=== PATIENT | male | born 1940 | race Caucasian/White ===

== ENCOUNTER 2016-03-28 05:49 | Day surgery (SDC) | payer MEDICARE ==
[2016-03-21 18:36] VITALS: BMI 35.9
[2016-03-28] MEDS ORDERED: SODIUM CHLORIDE 0.9% 1,000 ML IV SCH ×2 (05:57→07:30)
[2016-03-28 06:31] LABS: Basophils % (A) 1 %; CH 31.6; CHCM 34.8; Eosinophils # (A) 0.4 k/uL (0-0.7); Eosinophils % (A) 8 %; HCT 39.1 % (39.0-53.0); HDW 3.04; HGB 13.3 gm/dL (13.0-17.5); Luc # (Auto) 0.13; Luc % (Auto) 2; Lymphocytes % (A) 19 %; MCHC 33.9 g/dL (31.0-37.0); MCV 91.4 fL (80.0-100.0); Mean Platelet Volume 7.1; Monocytes # (A) 0.4 k/uL (0-1.0); Monocytes % (A) 8 %; Neutrophils # (A) 3.3 k/uL (1.3-7.7); Neutrophils % (A) 62 %; RBC 4.28 m/uL (4.30-5.90); RDW 13.3 % (11.5-15.5); WBC 5.3 k/uL (3.8-10.6)
[2016-03-28 06:43] LABS: Anion Gap 10 mmol/L; Blood Urea Nitrogen 22 mg/dL (9-20); Carbon Dioxide 30 mmol/L (22-30); Chloride 102 mmol/L (98-107); Glucose 98 mg/dL (74-99); Non-African American GFR(MDRD) >60 (>60 ml/min/1.73 sqM); Potassium 4.2 mmol/L (3.5-5.1); Sodium 142 mmol/L (137-145)
[2016-03-28] MEDS ORDERED: fentaNYL (PF) 50 MCG/ML 2 ML AMP ONE (06:54)
[2016-03-28] MEDS ORDERED: PROPOFOL 10 MG/ML 20 ML VIAL IV ONE (06:54)
[2016-03-28] MEDS ORDERED: LIDOCAINE 1% INJ 10MG/ML (20 ML MDV) ONE (06:54)
[2016-03-28] MEDS ORDERED: BENZOCAINE SPRAY 100 APPLIC/CAN MUCOUS MEM ONE ×2 (07:09→07:11)
[2016-03-28 07:41] VITALS: TEMP 97.8
[2016-03-28 08:56] VITALS: BP 153/83; PULSE 66; RESP 18
[2016-03-28] MEDS ORDERED: amLODIPine 5 MG TAB PO SCH (09:00)
[2016-03-28] MEDS ORDERED: APIXABAN 5 MG TAB PO SCH (09:00)
[2016-03-28] MEDS ORDERED: LISINOPRIL 5 MG TAB PO SCH (09:00)
--- NOTE | 2016-03-28 10:05 | ECHOT ---
DATE OF SERVICE: INDICATION: Evaluation of left atrial appendage. PROCEDURE: After explaining the procedure to patient as well as risks and complications, his blood pressure, heart rate, O2 saturation were monitored. The throat was sprayed with Cetacaine. He received sedation per anesthesia department. The probe was introduced into the esophagus without difficulty. Images were obtained. Following that, the probe was removed. There was no complication. FINDINGS: Left atrial size is dilated. Right atrial size is dilated. Left atrial appendage revealed no evidence of thrombus. There was evidence of spontaneous contrast. The aortic valve revealed fibrocalcific change of the aortic cusp with preserved opening. Thickening of the mitral valve leaflet was noted. The left ventricular size and systolic function normal. Tricuspid valve is normal. Descending thoracic aorta revealed no evidence of significant atherosclerosis. No shunting across the interatrial septum was noted with contrast bubble study. No pericardial effusion was noted. Doppler pulse wave and color obtained revealed mild to moderate aortic with mild mitral and tricuspid regurgitation. There was no shunting by color Doppler study. CONCLUSION: 1. Biatrial enlargement with normal appearing left atrial appendage. 2. Normal left ventricular size and systolic function. 3. Aortic sclerosis with no evidence of stenosis and of mild to moderate aortic regurgitation. 4. Mild mitral and tricuspid regurgitation. 5. No shunting across the interatrial septum. MTDD
[2016-03-28] MEDS ORDERED: THIAMINE 100 MG TAB PO SCH (12:00)
--- NOTE | 2016-03-28 18:10 | CE ---
DATE OF SERVICE: CARDIOVERSION INDICATION: Atrial fibrillation. PROCEDURE: After explaining the procedure to the patient as well as risks and complications, after performing transesophageal echocardiogram and obtaining a sedated state, a synchronized biphasic cardioversion using 200 joules was unsuccessful restoring sinus mechanism. Subsequent cardioversion using 300 joules was successful restoring normal sinus rhythm. There was no immediate complication.
[2016-03-28] MEDS ORDERED: ATORVASTATIN 40 MG TAB PO SCH (21:00)
[2016-03-29] MEDS ORDERED: PANTOPRAZOLE 40 MG TABLET PO SCH (07:30)
== END 2016-03-28 09:06 | disposition home or self-care (01) ==
LOC: CATHCVL 05:49
PROVIDERS: ATTEND Internal Medicine Interventional Cardiology
DX: Z79.02 Long term (current) use of antithrombotics/antiplatelets (principal); Z79.899 Other long term (current) drug therapy; I70.0 Atherosclerosis of aorta; I10 Essential (primary) hypertension; E78.5 Hyperlipidemia, unspecified; Z86.73 Personal history of transient ischemic attack (TIA), and cerebral infarction without residual deficits; K21.9 Gastro-esophageal reflux disease without esophagitis
CPT/HCPCS: 93312; 93320; 93005; 93325; 92960; 80048; 85025; J2001; J3010; J2704; 99152; 99153

== ENCOUNTER 2017-05-15 12:32 | Inpatient (IN) | payer MEDICARE ==
[2017-05-15] MEDS ORDERED: SODIUM CHLORIDE 0.9% 1,000 ML IV STA (14:44)
[2017-05-15] MEDS ORDERED: VANCOMYCIN IV PER PHARMACY 1 EACH MISC MISCELLANE PRN (14:44)
[2017-05-15] MEDS ORDERED: AMPICILLIN-SULBACTAM 3 GM in SODIUM CHLORIDE 0.9% 100 ML IVPB STA (14:44)
[2017-05-15] MEDS ORDERED: VANCOMYCIN 1,750 MG in SODIUM CHLORIDE 0.9% 250 ML IVPB STA (14:46)
--- NOTE | 2017-05-15 14:50 | ED ---
General Adult HPI - General Chief complaint: Wound/Laceration Stated complaint: Swollen Leg & Foot Time Seen by Provider: 05/15/17 14:31 Source: patient, RN notes reviewed Mode of arrival: ambulatory Limitations: no limitations - History of Present Illness Initial comments: 77-year-old male presents to the emergency department with a chief complaint of left lower extremity infection. Patient states this started about 10 days ago. He was unable to get to a doctor until today. He states that his left lower extremity is red and swollen and warm to touch. He states he did stub his left toe before this started. He denies any fever or chills but states the leg has felt warm. He denies any history of blood clots. He went to see his doctor today and he was referred here for IV antibiotics. He has been able to ambulate. There is been no falls. Patient denies any recent fever, chills, shortness of breath, chest pain, back pain, abdominal pain, nausea vomiting, numbness or tingling, dysuria or hematuria, constipation or diarrhea, headaches or visual changes, or any other current symptoms. - Related Data Home Medications Medication Instructions Recorded Confirmed No Known Home Medications [No 05/15/17 05/15/17 Known Home Medications] Allergies Allergy/AdvReac Type Severity Reaction Status Date / Time No Known Allergies Allergy Verified 05/15/17 14:49 Review of Systems ROS Statement: Those systems with pertinent positive or pertinent negative responses have been documented in the HPI. ROS Other: All systems not noted in ROS Statement are negative. Past Medical History Past Medical History: CVA/TIA, GI Bleed, Hyperlipidemia, Hypertension, Liver Disease, Osteoarthritis (OA) Additional Past Medical History / Comment(s): "slight stroke 12/30/15, resolved. 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 states had "yellow jaundice" as a young teen; L foot burn about 2 yrs ago, healed w/ large bulge in arch, affects balance at times. Pt states does not go to the doctors "much." GI BLEEDING 12/2015, OFF ASPIRIN SINCE. IRREG HEART RHYTHM, PER PATIENT, SHORT OF BREATH OCC. History of Any Multi-Drug Resistant Organisms: None Reported Past Surgical History: Appendectomy, Orthopedic Surgery Additional Past Surgical History / Comment(s): R ankle fluid removal, L elbow nerve problem with surgery. YAHIR 02/02/16. Past Anesthesia/Blood Transfusion Reactions: No Reported Reaction Additional Past Anesthesia/Blood Transfusion Reaction / Comment(s): no hx blood transfusion Past Psychological History: No Psychological Hx Reported Smoking Status: Never smoker Past Alcohol Use History: Occasional Past Drug Use History: None Reported - Past Family History Father Family Medical History: Myocardial Infarction (SD) Additional Family Medical History / Comment(s): Father had a SD at the age of 63 and from it. Mother Family Medical History: No Reported History Additional Family Medical History / Comment(s): Mother lived to be 82 yrs. old. General Exam - General Exam Comments Initial Comments: General: The patient is awake and alert, in no distress, and does not appear acutely ill. Neck: The neck is supple, there is no tenderness . Cardiovascular: There is a regular rate and rhythm. No murmur, rub or gallop is appreciated. Respiratory: Lungs are clear to auscultation, respirations are non-labored, breath sounds are equal. No wheezes, stridor, rales, or rhonchi. Musculoskeletal: Sensation intact with 2+ pulses of left lower extremity. Full range of motion of left hip left knee and left foot. He does appear to have a swelling with circumferential erythema surrounding the left lower extremity and swelling extending into the foot with a wound noted to the left middle toe. Warm to touch. Erythema stops below left knee Neurological: CN II-XII intact, There are no obvious motor or sensory deficits. Coordination appears grossly intact. Speech is normal. Skin: Skin is warm and dry and no rashes or lesions are noted. Psychiatric: Normal mood and affect. Limitations: no limitations Course Vital Signs 05/15/17 05/15/17 13:39 16:31 Temperature 97.8 F 97.9 F Pulse Rate 90 88 Respiratory 20 16 Rate Blood Pressure 191/88 165/71 O2 Sat by Pulse 99 96 Oximetry Medical Decision Making - Medical Decision Making 77-year-old male presents for left lower extremity redness and swelling. This time patient does appear to have lower extremity cellulitis. This time antibiotics have been started. Patient will be admitted for continued care. Dr. Rabago spoke to Pillo RODRÍGUEZ who does agree to the admission. - Lab Data Result diagrams: 05/15/17 14:59 05/15/17 14:59 Lab Results 05/15/17 05/15/17 05/15/17 Range/Units 14:59 14:59 14:59 WBC 6.7 (3.8-10.6) k/uL RBC 4.48 (4.30-5.90) m/uL Hgb 13.1 (13.0-17.5) gm/dL Hct 40.0 (39.0-53.0) % MCV 89.2 (80.0-100.0) fL MCH 29.3 (25.0-35.0) pg MCHC 32.9 (31.0-37.0) g/dL RDW 13.1 (11.5-15.5) % Plt Count 230 (150-450) k/uL Neutrophils % 67 % Lymphocytes % 19 % Monocytes % 8 % Eosinophils % 4 % Basophils % 1 % Neutrophils # 4.4 (1.3-7.7) k/uL Lymphocytes # 1.2 (1.0-4.8) k/uL Monocytes # 0.5 (0-1.0) k/uL Eosinophils # 0.3 (0-0.7) k/uL Basophils # 0.1 (0-0.2) k/uL PT 10.6 (9.0-12.0) sec INR 1.1 (<1.2) APTT 23.8 (22.0-30.0) sec Sodium 137 (137-145) mmol/L Potassium 4.5 (3.5-5.1) mmol/L Chloride 99 (98-107) mmol/L Carbon Dioxide 26 (22-30) mmol/L Anion Gap 12 mmol/L BUN 21 H (9-20) mg/dL Creatinine 0.89 (0.66-1.25) mg/dL Est GFR (CKD-EPI)AfAm >90 (>60 ml/min/1.73 sqM) Est GFR (CKD-EPI)NonAf 82 (>60 ml/min/1.73 sqM) Glucose 87 (74-99) mg/dL Calcium 9.3 (8.4-10.2) mg/dL Total Bilirubin 0.4 (0.2-1.3) mg/dL AST 17 (17-59) U/L ALT 27 (21-72) U/L Alkaline Phosphatase 93 (38-126) U/L Total Protein 6.8 (6.3-8.2) g/dL Albumin 3.8 (3.5-5.0) g/dL - Radiology Data Radiology results: report reviewed, image reviewed Disposition Clinical Impression: Left leg cellulitis Disposition: ADMITTED IP TO THIS [facility] Condition: Stable Decision Date: 05/15/17 Decision Time: 16:14
[2017-05-15 15:14] LABS: Basophils # (A) 0.1 k/uL (0-0.2); Basophils % (A) 1 %; Eosinophils # (A) 0.3 k/uL (0-0.7); Eosinophils % (A) 4 %; HGB 13.1 gm/dL (13.0-17.5); Lymphocytes # (A) 1.2 k/uL (1.0-4.8); Lymphocytes % (A) 19 %; MCH 29.3 pg (25.0-35.0); MCHC 32.9 g/dL (31.0-37.0); MCV 89.2 fL (80.0-100.0); Mean Platelet Volume 6.8; Monocytes # (A) 0.5 k/uL (0-1.0); Monocytes % (A) 8 %; Neutrophils # (A) 4.4 k/uL (1.3-7.7); Neutrophils % (A) 67 %; Platelet Count 230 k/uL (150-450); RBC 4.48 m/uL (4.30-5.90); RDW 13.1 % (11.5-15.5); WBC 6.7 k/uL (3.8-10.6)
[2017-05-15 15:25] LABS: ALT 27 U/L (21-72); AST 17 U/L (17-59); Albumin 3.8 g/dL (3.5-5.0); Alkaline Phosphatase 93 U/L (38-126); Anion Gap 12 mmol/L; Blood Urea Nitrogen 21 mg/dL (9-20); Calcium 9.3 mg/dL (8.4-10.2); Carbon Dioxide 26 mmol/L (22-30); Chloride 99 mmol/L (98-107); Glucose 87 mg/dL (74-99); INR 1.1 (<1.2); Partial Thromboplastin Time 23.8 sec (22.0-30.0); Potassium 4.5 mmol/L (3.5-5.1); Prothrombin Time 10.6 sec (9.0-12.0); Sodium 137 mmol/L (137-145); Total Bilirubin 0.4 mg/dL (0.2-1.3); Total Protein 6.8 g/dL (6.3-8.2)
--- NOTE | 2017-05-15 15:31 | XR ---
EXAMINATION TYPE: XR tibia fibula LT DATE OF EXAM: 05/15/2017 COMPARISON: NONE HISTORY: Pain TECHNIQUE: Two views are submitted. FINDINGS: The osseous structures are intact. The joint spaces are preserved. Diffuse soft tissue edema. There is arthropathy of the knee joint. Arthropathy of the ankle joint. There is marked deformity of the t arsal bones likely on a chronic basis. Large plantar calcaneal spurs seen and there is a pes planus d eformity. IMPRESSION: 1. No acute osseous abnormality. See above. 2. Soft tissue edema.
--- NOTE | 2017-05-15 16:08 | US ---
EXAMINATION TYPE: US venous doppler duplex LE LT DATE OF EXAM: 05/15/2017 3:54 PM COMPARISON: NONE CLINICAL HISTORY: Pain. lt leg pain and swelling SIDE PERFORMED: Left TECHNIQUE: The lower extremity deep venous system is examined utilizing real time linear array sonog bri with graded compression, doppler sonography and color-flow sonography. VESSELS IMAGED: External Iliac Vein (EIV) Common Femoral Vein Deep Femoral Vein Greater Saphenous Vein * Femoral Vein Popliteal Vein Small Saphenous Vein * Proximal Calf Veins (* superficial vessels) Grayscale, color doppler, spectral doppler imaging performed of the deep veins of the lower extremity . There is normal flow, compressibility, vascular waveforms. Left Leg: Negative for DVT IMPRESSION: Left Leg: Negative for DVT
[2017-05-15] MEDS ORDERED: NALOXONE 0.4 MG/ML 1 ML VIAL IV PRN (16:17)
[2017-05-15] MEDS ORDERED: ACETAMINOPHEN TAB 325 MG TAB PO PRN (16:17)
[2017-05-15] MEDS ORDERED: ONDANSETRON 4 MG/2 ML VIAL IVP PRN (16:17)
--- NOTE | 2017-05-15 16:44 | XR ---
EXAMINATION TYPE: XR foot complete LT DATE OF EXAM: 05/15/2017 COMPARISON: NONE HISTORY: Pain TECHNIQUE: 3 views FINDINGS: there is extensive spurring and sclerosis at the tarsometatarsal joints. I see no acute fracture nor dislocation. There is mild subluxation at the third MP joint. There is spurring at the first MP joint . There is pes planus deformity. 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 No evidence of osteomyelitis. No acute bony abnormality. Mild plantar calcanea l spurring.
[2017-05-15] MEDS: SODIUM CHLORIDE 0.9% 1,000 ML IV SCH (17:19)
[2017-05-16] MEDS: AMPICILLIN-SULBACTAM 3 GM in SODIUM CHLORIDE 0.9% 100 ML IVPB SCH ×4 (00:10→17:23)
[2017-05-16] MEDS: VANCOMYCIN 1,750 MG in SODIUM CHLORIDE 0.9% 250 ML IVPB SCH ×2 (05:01→21:52)
[2017-05-16] MEDS: SODIUM CHLORIDE 0.9% 1,000 ML IV SCH ×3 (05:02→21:58)
[2017-05-16 09:06] LABS: Basophils % (A) 1 %; Eosinophils # (A) 0.3 k/uL (0-0.7); Eosinophils % (A) 6 %; HCT 36.3 % (39.0-53.0); HGB 12.6 gm/dL (13.0-17.5); Lymphocytes # (A) 0.5 k/uL (1.0-4.8); Lymphocytes % (A) 11 %; MCH 30.6 pg (25.0-35.0); MCHC 34.7 g/dL (31.0-37.0); MCV 88.1 fL (80.0-100.0); Mean Platelet Volume 7.2; Monocytes # (A) 0.3 k/uL (0-1.0); Monocytes % (A) 5 %; Neutrophils # (A) 3.5 k/uL (1.3-7.7); Neutrophils % (A) 76 %; Platelet Count 214 k/uL (150-450); RBC 4.12 m/uL (4.30-5.90); RDW 12.9 % (11.5-15.5); WBC 4.6 k/uL (3.8-10.6)
[2017-05-16 09:37] LABS: Albumin 3.5 g/dL (3.5-5.0); Calcium 8.9 mg/dL (8.4-10.2); Potassium 4.1 mmol/L (3.5-5.1); Total Bilirubin 0.5 mg/dL (0.2-1.3); Total Protein 6.2 g/dL (6.3-8.2)
--- NOTE | 2017-05-16 12:17 | P.HPIM ---
History of Present Illness Patient is a pleasant 77-year-old gentleman came in with the cellulitis of the bilateral for legs mostly in the left leg patient was sent in here by his foot doctor who was treating for cellulitis as an outpatient without any improvement and the patient had put deformity in the left foot after an injury on his tractor years ago and patient does have pes planus and multiple ulcerations in the left leg 1 in the mid collado area , second one on the second toe which may have osteomyelitis and the third one on the medial aspect of the calcaneus on the left side along with another ulcer on the right midshin area. Patient does have increasing redness which appears to have improved since yesterday patient was given Zosyn and was also started on vancomycin doesn't take any medications at home patient is not a smoker not a diabetic patient does having Kreiser the temperature redness in the left leg redness in the right leg but no local is of temperature no tenderness in both legs. Patient denied any fevers chills at home. There is no purulence or polyps coming out of any of these wounds because of which I'm unable to get any wound cultures. Blood cultures were obtained infectious disease will be consulted along with the radiosonde specialist Review of Systems REVIEW OF SYSTEMS: CONSTITUTIONAL: No fever, no malaise, no fatigue. HEENT: No recent visual problems or hearing problems. Denied any sore throat. CARDIOVASCULAR: No chest pain, orthopnea, PND, no palpitations, no syncope. PULMONARY: No shortness of breath, no cough, no hemoptysis. GASTROINTESTINAL: No diarrhea, no nausea, no vomiting, no abdominal pain. Normoactive bowel sounds. NEUROLOGICAL: No headaches, no weakness, no numbness. HEMATOLOGICAL: Denies any bleeding or petechiae. GENITOURINARY: Denies any burning micturition, frequency, or urgency. MUSCULOSKELETAL/RHEUMATOLOGICAL: Denies any joint pain, swelling, or any muscle pain. ENDOCRINE: Denies any polyuria or polydipsia. The rest of the 14-point review of systems is negative. Past Medical History Past Medical History: CVA/TIA, GI Bleed, Hyperlipidemia, Hypertension, Liver Disease, Osteoarthritis (OA) Additional Past Medical History / Comment(s): "slight stroke" 12/30/15, resolved. states had "yellow jaundice, took a pill for hepatitis" as a young teen; L foot burn 4 years ago, healed w/ large bulge in arch, affects balance at times. GI BLEEDING 12/2015,. IRREG HEART RHYTHM, PER PATIENT. History of Any Multi-Drug Resistant Organisms: None Reported Past Surgical History: Appendectomy, Orthopedic Surgery Additional Past Surgical History / Comment(s): R ankle fluid removal, L elbow nerve problem with surgery. YAHIR 02/02/16. Past Anesthesia/Blood Transfusion Reactions: No Reported Reaction Additional Past Anesthesia/Blood Transfusion Reaction / Comment(s): no hx blood transfusion Past Psychological History: No Psychological Hx Reported Smoking Status: Never smoker Past Alcohol Use History: Occasional Additional Past Alcohol Use History / Comment(s): Patient states he is a social drinker, no history of ETOH withdrawl Past Drug Use History: None Reported - Past Family History Father Family Medical History: Myocardial Infarction (SD) Additional Family Medical History / Comment(s): Father had a SD at the age of 63 and from it. Mother Family Medical History: No Reported History Additional Family Medical History / Comment(s): Mother lived to be 82 yrs. old. Medications and Allergies Home Medications Medication Instructions Recorded Confirmed Type No Known Home Medications [No 05/15/17 05/15/17 History Known Home Medications] Allergies Allergy/AdvReac Type Severity Reaction Status Date / Time No Known Allergies Allergy Verified 05/15/17 14:49 Physical Exam Vitals: Vital Signs Temp Pulse Pulse Resp BP BP Pulse Ox 05/16/17 07:00 97.6 F 94 16 173/86 95 05/16/17 01:42 98.4 F 85 18 175/84 95 05/15/17 23:00 99.1 F 90 18 183/93 95 05/15/17 17:51 97.2 F L 90 18 152/82 96 05/15/17 16:31 97.9 F 88 16 165/71 96 05/15/17 13:39 97.8 F 90 20 191/88 99 Intake and Output 05/15/17 05/16/17 05/16/17 22:59 06:59 14:59 Other: Voiding Method Toilet Toilet Urinal # Voids 1 2 Weight 118 kg PHYSICAL EXAMINATION: GENERAL: The patient is alert and oriented x3, not in any acute distress. Well developed, well nourished. HEENT: Pupils are round and equally reacting to light. EOMI. No scleral icterus. No conjunctival pallor. Normocephalic, atraumatic. No pharyngeal erythema. No thyromegaly. CARDIOVASCULAR: S1 and S2 present. No murmurs, rubs, or gallops. PULMONARY: Chest is clear to auscultation, no wheezing or crackles. ABDOMEN: Soft, nontender, nondistended, normoactive bowel sounds. No palpable organomegaly. MUSCULOSKELETAL: No joint swelling or deformity. EXTREMITIES: No cyanosis, clubbing, or pedal edema. Left leg 3 ulcers as described above all of them are stage III the one on the second toe may have [id number] because of which are pending a bone scan patient does have with redness with local is of temperature involving most of the left leg involving the foot few centimeters below the knee in a circumferential with local is of temperature. Right leg has a mention ulceration probably stage II does have redness without any local is of temperature. Left leg is swollen more than right leg NEUROLOGICAL: Gross neurological examination did not reveal any focal deficits. SKIN: No rashes. Results CBC & Chem 7: 05/16/17 08:45 05/16/17 08:45 Labs: Abnormal Lab Results - Last 24 Hours (Table) 05/15/17 05/16/17 05/16/17 Range/Units 14:59 08:45 08:45 RBC 4.12 L (4.30-5.90) m/uL Hgb 12.6 L (13.0-17.5) gm/dL Hct 36.3 L (39.0-53.0) % Lymphocytes # 0.5 L (1.0-4.8) k/uL BUN 21 H (9-20) mg/dL Glucose 158 H (74-99) mg/dL Total Protein 6.2 L (6.3-8.2) g/dL Microbiology - Last 24 Hours (Table) 05/15/17 16:20 Gram Stain - Preliminary Foot - Left Wound Culture - Preliminary Thrombosis Risk Factor Assmnt - Choose All That Apply Any of the Below Risk Factors Present?: Yes Each Factor Represents 1 point: Swollen legs (current) Each Risk Factor Represents 3 Points: Age 75 years or older, Family history of DVT/PE Thrombosis Risk Factor Assessment Total Risk Factor Score: 7 Thrombosis Risk Factor Assessment Level: High Risk Assessment and Plan Plan: -Cellulitis of bilateral legs: Patient will be started on vancomycin and Unasyn will be continued and blood cultures were obtain -Pes planus significant left foot or deformity because of the severe osteoarthritis from injury and pes planus -Swelling of the left leg ruled out DVT -Multiple ulcerations with for which patient will need wound care and also rule out osteomyelitis infectious disease and radiosonde specialist will be consulted
--- NOTE | 2017-05-16 16:45 | NM ---
EXAMINATION TYPE: NM bone 3 phase DATE OF EXAM: 05/16/2017 COMPARISON: NONE HISTORY: Triple phase bone scintigraphy was performed following the injection of24.0 mCi Tc 99m MDP. Immediat e images and 3 hours post injection images acquired. FINDINGS: The flow study shows hyperemia of the entire left foot compared to the right. The delayed images show significant increased uptake in the left midfoot in the area of significant osteoarthritis and scler osis at the tarsometatarsal joints of the left foot. There is delayed focal increased uptake at the end of the second toe of the left foot. There is mild increased uptake in the right midfoot at the first tarsometatarsal joint. IMPRESSION: Hyperemia of the left foot with delayed focal increased uptake at the end of the left second toe that could relate to osteomyelitis. Reactive changes due to fracture is in the differential diagnosis. Shaji singh I do not see an obvious fracture on the left foot x-ray of 05/08/1717. Significant increased uptake at the left midfoot related to the evident neuropathic arthropathy at th e tarsometatarsal joints.
--- NOTE | 2017-05-16 23:17 | CONS ---
CONSULTATION DATE OF CONSULTATION: 05/16/2017 REASON FOR CONSULTATION: Left leg cellulitis and left second toe osteomyelitis. HISTORY OF PRESENT ILLNESS: The patient is a 77-year-old male presenting to the ER at [facility] yesterday afternoon with the chief complaint of left leg pain, swelling and redness. His symptom had been going on for about 10 days prior to presentation to hospital. The patient did have a wound on the tip of his left second toe from a trauma, stubbing it more than 2 weeks ago. The patient has very minimal drainage from the tip of the second toe, with more swelling of the second toe with subsequently redness spreading to the left leg. Pain is described in the left leg as more of a dull aching pain for about 10 days, about 2 to 3 out of 10, and no radiation. The patient did have some chills but denies any high-grade fever. With these symptom, the patient was evaluated by the ER physician. The patient did have a lower extremity Doppler that was negative for DVT. X- ray was negative for any bony changes. The patient has been diagnosed with possible cellulitis and was started on vancomycin and Unasyn. Infectious Disease was consulted for further recommendation regarding antibiotic therapy. The patient also had x -rays of the left foot that did not show any significant changes. However, subsequently a bone scan that was ordered by the admitting services did show possible osteomyelitis of the left second toe. REVIEW OF SYSTEMS: CONSTITUTIONAL: Positive for weakness and some chills but denies any high-grade fever. EYES: No complaint. ENT: No complaint. RESPIRATORY: No complaint. CARDIOVASCULAR: No complaint. GENITOURINARY: No complaint. GASTROINTESTINAL: No complaint. MUSCULOSKELETAL: As per HPI. INTEGUMENTARY: As per HPI. PSYCHOLOGICAL: No complaint. ENDOCRINE: No complaint. NEUROLOGICAL: No complaint. PAST MEDICAL HISTORY: 1. Hypertension. 2. Hyperlipidemia. 3. CVA, TIA. 4. History of GI bleed. 5. Osteoarthritis. PAST SURGICAL HISTORY: 1. Appendectomy. 2. Right ankle surgery. 3. Left elbow surgery. 4. YAHIR. SOCIAL HISTORY: No history of smoking. Social drinker. No drug use. FAMILY HISTORY: Father with history of [place]. Mother lived to be 82 with no medical problems. ALLERGIES: NO KNOWN DRUG ALLERGIES. CURRENT MEDICATIONS: 1. Tylenol. 2. Unasyn. 3. Narcan. 4. Zofran. 5. Vancomycin. PHYSICAL EXAMINATION: His blood pressure is 127/95 with a pulse of 86, temperature 97.6. He is 96% on room air. General description is an elderly male lying in bed in no distress. No tachypnea or accessory muscle of respiration use. HEENT examination shows no pallor or scleral icterus. Oral mucosa membrane is dry. NECK: Trachea is central. No thyromegaly. LUNGS: Unlabored breathing. Clear to auscultation anteriorly. HEART: S1, S2. Regular rate and rhythm. ABDOMEN: Soft. No tenderness. No guarding or rigidity. EXTREMITIES: Some chronic changes to the bilateral lower leg areas. However, the patient does have a wound on his left second toe at the tip with some purulent drainage. The area was cleaned and cultures were obtained. Minimal swelling of the left foot and redness. Neurologically the patient is awake, alert, oriented x3. Mood and affect normal. LABS: Hemoglobin is 12.6, white count 4.6 with a BUN of 18, creatinine 0.97. Electrolytes have been normal. Liver enzymes are normal. Blood culture obtained; currently pending. DIAGNOSTIC IMPRESSION AND PLAN: Patient admitted to hospital with left second toe wound with likely osteomyelitis with secondary cellulitis of the left foot, likely from a Gram-positive skin mars such as streptococcus in a patient who has been on and off antibiotic therapy; less likely MRSA or a Gram-negative infection, as the patient is not diabetic. PLAN: 1. Wound culture has been obtained. That should guide antibiotic therapy. In view of the underlying osteomyelitis, he would likely need to be on IV antibiotic on discharge, for which he will need a PICC line. 2. Will obtain a baseline sedimentation rate. 3. Will keep the patient on vancomycin, Pharmacy to dose; target of 15; along with the Unasyn while waiting for the culture to finalize. 4. Will follow up on the clinical condition and culture to further adjust medication if needed. Thank you for this consultation. Will follow this patient along with you. MMODL / IJN: [id number] / MTDD
[2017-05-17] MEDS: AMPICILLIN-SULBACTAM 3 GM in SODIUM CHLORIDE 0.9% 100 ML IVPB SCH ×5 (00:01→18:20)
--- NOTE | 2017-05-17 08:38 | P.PN ---
Subjective Progress Note Date: 05/17/17 Principal diagnosis: Neuropathic ulceration left second toe with ascending cellulitis History of Present Illness Patient is a pleasant 77-year-old gentleman came in with the cellulitis of the bilateral for legs mostly in the left leg patient was sent in here by his foot doctor who was treating for cellulitis as an outpatient without any improvemen patient is being seen in consultation for deformity and treatment of ulceration of the left lower extremity. Patient apparently injured his toe proximally 3 weeks ago. He made an appointment to see the foot doctor however could not be seen due to scheduling issues. He did present this week at which time the physician instructed the patient to present to the hospital for treatment of infection. Treatment was rendered on this day. He was admitted Sunday afternoon for cellulitis of the left lower extremity and has been treated with IV antibiotics. Patient is a poor historian as far as how the foot was injured due to his neuropathy. She does not know how long the neuropathy has been present. Does have a special shoe which he states he does well or on the left foot with some modifications. Patient is seen at bedside today with no apparent distress. Objective - Vital Signs Vital signs: Vital Signs Temp 98.5 F 05/17/17 07:00 Pulse 91 05/17/17 07:00 Resp 16 05/17/17 07:00 BP 154/84 05/17/17 07:00 Pulse Ox 94 L 05/17/17 07:00 Intake & Output 05/16/17 05/17/17 05/17/17 18:59 06:59 18:59 Output Total 800 0 Balance -800 -2049 Weight 118 kg Output: Urine 800 0 Other: Voiding Method Toilet Toilet Urinal Urinal # Voids 4 1 - Exam The past medical history is reviewed and per chart. t Review of Systems REVIEW OF SYSTEMS: CONSTITUTIONAL: No fever, no malaise, no fatigue. HEENT: No recent visual problems or hearing problems. Denied any sore throat. CARDIOVASCULAR: No chest pain, orthopnea, PND, no palpitations, no syncope. PULMONARY: No shortness of breath, no cough, no hemoptysis. GASTROINTESTINAL: No diarrhea, no nausea, no vomiting, no abdominal pain. Normoactive bowel sounds. NEUROLOGICAL: No headaches, no weakness, no numbness. HEMATOLOGICAL: Denies any bleeding or petechiae. GENITOURINARY: Denies any burning micturition, frequency, or urgency. MUSCULOSKELETAL/RHEUMATOLOGICAL: Denies any joint pain, swelling, or any muscle pain. ENDOCRINE: Denies any polyuria or polydipsia. The rest of the 14-point review of systems is negative. Past Medical History Past Medical History: CVA/TIA, GI Bleed, Hyperlipidemia, Hypertension, Liver Disease, Osteoarthritis (OA) Additional Past Medical History / Comment(s): "slight stroke" 12/30/15, resolved. states had "yellow jaundice, took a pill for hepatitis" as a young teen; L foot burn 4 years ago, healed w/ large bulge in arch, affects balance at times. GI BLEEDING 12/2015,. IRREG HEART RHYTHM, PER PATIENT. History of Any Multi-Drug Resistant Organisms: None Reported Past Surgical History: Appendectomy, Orthopedic Surgery Additional Past Surgical History / Comment(s): R ankle fluid removal, L elbow nerve problem with surgery. YAHIR 02/02/16. Past Anesthesia/Blood Transfusion Reactions: No Reported Reaction Additional Past Anesthesia/Blood Transfusion Reaction / Comment(s): no hx blood transfusion Past Psychological History: No Psychological Hx Reported Smoking Status: Never smoker Past Alcohol Use History: Occasional Additional Past Alcohol Use History / Comment(s): Patient states he is a social drinker, no history of ETOH withdrawl Past Drug Use History: None Reported - Past Family History Father Family Medical History: Myocardial Infarction (VT) Additional Family Medical History / Comment(s): Father had a VT at the age of 63 and from it. Mother Family Medical History: No Reported History Additional Family Medical History / Comment(s): Mother lived to be 82 yrs. old. Medications and Allergies Home Medications Medication Instructions Recorded Confirmed Type No Known Home Medications [No 05/15/17 05/15/17 History Known Home Medications] Allergies Allergy/AdvReac Type Severity Reaction Status Date / Time No Known Allergies Allergy Verified 05/15/17 14:49 Physical Exam Vitals: Vital Signs Temp Pulse Pulse Resp BP BP Pulse Ox 05/16/17 07:00 97.6 F 94 16 173/86 95 05/16/17 01:42 98.4 F 85 18 175/84 95 05/15/17 23:00 99.1 F 90 18 183/93 95 05/15/17 17:51 97.2 F L 90 18 152/82 96 05/15/17 16:31 97.9 F 88 16 165/71 96 05/15/17 13:39 97.8 F 90 20 191/88 99 Intake and Output 05/15/17 05/16/17 05/16/17 22:59 06:59 14:59 Other: Voiding Method Toilet Toilet Urinal # Voids 1 2 Weight 118 kg PHYSICAL EXAMINATION: GENERAL: The patient is alert and oriented x3, not in any acute distress. Well developed, well nourished. HEENT: Pupils are round and equally reacting to light. EOMI. No scleral icterus. No conjunctival pallor. Normocephalic, atraumatic. No pharyngeal erythema. No thyromegaly. CARDIOVASCULAR: S1 and S2 present. No murmurs, rubs, or gallops. PULMONARY: Chest is clear to auscultation, no wheezing or crackles. ABDOMEN: Soft, nontender, nondistended, normoactive bowel sounds. No palpable organomegaly. MUSCULOSKELETAL: No joint swelling or deformity. EXTREMITIES: No cyanosis, clubbing, or pedal edema. Left leg 3 ulcers as described above all of them are stage III the one on the second toe may have [id number] because of which are pending a bone scan patient does have with redness with local is of temperature involving most of the left leg involving the foot few centimeters below the knee in a circumferential with local is of temperature. Right leg has a mention ulceration probably stage II does have redness without any local is of temperature. Left leg is swollen more than right leg NEUROLOGICAL: Gross neurological examination did not reveal any focal deficits. SKIN: No rashes. Results CBC & Chem 7: 05/16/17 08:45 05/16/17 08:45 Labs: Abnormal Lab Results - Last 24 Hours (Table) 05/15/17 05/16/17 05/16/17 Range/Units 14:59 08:45 08:45 RBC 4.12 L (4.30-5.90) m/uL Hgb 12.6 L (13.0-17.5) gm/dL Hct 36.3 L (39.0-53.0) % Lymphocytes # 0.5 L (1.0-4.8) k/uL BUN 21 H (9-20) mg/dL Glucose 158 H (74-99) mg/dL Total Protein 6.2 L (6.3-8.2) g/dL Microbiology - Last 24 Hours (Table) 05/15/17 16:20 Gram Stain - Preliminary Foot - Left Wound Culture - Preliminary - Cardiovascular Details: Pedal pulses are patent and symmetrical bilateral. Temperature texture tumor normal and symmetric bilateral there is no digital hair 10. Some plexus filling time is normal and symmetrical bilateral - Integumentary Integumentary Comment(s): There is a full-thickness ulceration on the distal aspect of the left second toe. Before debridement the wound measured approximately 1 cm x 1 cm with the depth on determined. After debridement the wound measured approximately 0.5 cm x 0.5 cm and penetrated deep down to the osseous tissues approximately 0.6 cm. There is undermining around the clock proximally 0.3 cm. There is localized erythema and edema of the left second toe to the metatarsophalangeal joint. No advertent purulence was noted. There is no odor no increased temperature of the digit. Patient has have several crusting lesions appears to be healing ulcerations of bilateral legs in the pretibial area centrally in the distal one third. There is also a hyperkeratotic pre-ulcerative lesion beneath the talar navicular joint of the left foot. - Neurologic Neurologic Comment(s): Patient has loss of epicritic and pallesthetic sensations of the left lower leg up to including the foot ankle joint and distal one third of the leg. Patient has loss of light touch as well as vibratory 2 point tactile in a stocking glove distribution of the left lower extremity to the lower leg. 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 There is a gastrocnemius equinus bilateral. There is hammertoes 234 and 5 bilateral. Any pedal joints show normal range of motion without pain or crepitus bilateral - Labs CBC & Chem 7: 05/16/17 08:45 05/16/17 08:45 Labs: Abnormal Lab Results - Last 24 Hours (Table) 05/16/17 05/16/17 Range/Units 08:45 08:45 RBC 4.12 L (4.30-5.90) m/uL Hgb 12.6 L (13.0-17.5) gm/dL Hct 36.3 L (39.0-53.0) % Lymphocytes # 0.5 L (1.0-4.8) k/uL Glucose 158 H (74-99) mg/dL Total Protein 6.2 L (6.3-8.2) g/dL Microbiology - Last 24 Hours (Table) 05/16/17 14:41 Gram Stain - Preliminary Toe - Left Second Wound Culture - Preliminary 05/15/17 16:20 Gram Stain - Preliminary Foot - Left Wound Culture - Preliminary Presumptive Staph aureus 05/15/17 14:59 Blood Culture - Preliminary Blood No Growth after 24 hours Assessment and Plan Assessment: 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 Plan: Today after review history and physical we discussed our findings with patient. We debrided the necrotic tissue about the area of the left second toe. Orders for wound care as well as repeat culture and sensitivity of this area. Patient will continue IV antibiotics and should respond favorably. After discharge patient may need surgical intervention of the left second digit to prevent recurrence. Thank you for this consult. Santiago CAVAZOS
[2017-05-17] MEDS: SODIUM CHLORIDE 0.9% 1,000 ML IV SCH ×2 (08:49→19:51)
[2017-05-17 09:41] LABS: HGB 12.4 gm/dL (13.0-17.5); MCH 30.5 pg (25.0-35.0); MCHC 34.5 g/dL (31.0-37.0); MCV 88.2 fL (80.0-100.0); Mean Platelet Volume 6.4; Platelet Count 209 k/uL (150-450); RBC 4.09 m/uL (4.30-5.90); RDW 13.3 % (11.5-15.5)
[2017-05-17 09:54] LABS: Anion Gap 13 mmol/L; Blood Urea Nitrogen 16 mg/dL (9-20); Carbon Dioxide 28 mmol/L (22-30); Chloride 99 mmol/L (98-107); Glucose 126 mg/dL (74-99); Potassium 4.1 mmol/L (3.5-5.1); Sodium 140 mmol/L (137-145)
[2017-05-17] MEDS: VANCOMYCIN 1,750 MG in SODIUM CHLORIDE 0.9% 250 ML IVPB SCH ×2 (10:49→22:36)
[2017-05-17 11:20] LABS: Erythrocyte Sedimentation Rate 38 mm/hr (0-15)
--- NOTE | 2017-05-17 15:09 | PN ---
PROGRESS NOTE DATE OF SERVICE: 05/17/2017. REASON FOR FOLLOWUP VISIT: Left second toe osteomyelitis. INTERVAL HISTORY: The patient is afebrile. He is breathing comfortably. The patient did have bedside debridement of the left second toe tip by Dr. Henderson at the bedside. The patient tolerated the procedure. Denies having any chest pain, shortness of breath, cough. NO abdominal pain or any diarrhea. EXAMINATION: Blood pressure 154/84 with a pulse of 90, temperature 98.5. He is 94% on room air. General description is an elderly male lying in bed in no distress. RESPIRATORY SYSTEM: Unlabored breathing. Clear to auscultation anteriorly. HEART: S1, S2. Regular rate. ABDOMEN: Soft, no tenderness. Left foot is currently dressed up, no obvious drainage on the dressing. LABS: Hemoglobin 12.4, white count 4.0 with a BUN of 15, creatinine 0.93. Wound culture with Staph aureus. DIAGNOSTIC IMPRESSION AND PLAN: Patient with left 2nd toe nonhealing wound with secondary swelling of the toe and the foot. Concern likely for underlying osteomyelitis. Culture showing Staph aureus, question of possible MRSA. The patient is currently on the vancomycin and this will be continued adjusting it further based on the culture report. The patient likely need a PICC line for outpatient IV antibiotic therapy. Continue supportive care. MMODL / IJN: [id number] /
--- NOTE | 2017-05-17 17:45 | P.PN ---
Subjective Progress Note Date: 05/17/17 Progress note being dictated for Dr. Pablo. interval history:Patient is a pleasant 77-year-old gentleman came in with the cellulitis of the bilateral for legs mostly in the left leg patient was sent in here by his foot doctor who was treating for cellulitis as an outpatient without any improvement and the patient had put deformity in the left foot after an injury on his tractor years ago and patient does have pes planus and multiple ulcerations in the left leg 1 in the mid collado area , second one on the second toe which may have osteomyelitis and the third one on the medial aspect of the calcaneus on the left side along with another ulcer on the right midshin area. Patient does have increasing redness which appears to have improved since yesterday patient was given Zosyn and was also started on vancomycin doesn 't take any medications at home patient is not a smoker not a diabetic patient does having Kreiser the temperature redness in the left leg redness in the right leg but no local is of temperature no tenderness in both legs. Patient denied any fevers chills at home. There is no purulence or polyps coming out of any of these wounds because of which I'm unable to get any wound cultures. Blood cultures were obtained infectious disease will be consulted along with the pharmacy specialist Review of Systems REVIEW OF SYSTEMS: CONSTITUTIONAL: No fever, no malaise, no fatigue. HEENT: No recent visual problems or hearing problems. Denied any sore throat. CARDIOVASCULAR: No chest pain, orthopnea, PND, no palpitations, no syncope. PULMONARY: No shortness of breath, no cough, no hemoptysis. GASTROINTESTINAL: No diarrhea, no nausea, no vomiting, no abdominal pain. Normoactive bowel sounds. NEUROLOGICAL: No headaches, no weakness, no numbness. HEMATOLOGICAL: Denies any bleeding or petechiae. GENITOURINARY: Denies any burning micturition, frequency, or urgency. MUSCULOSKELETAL/RHEUMATOLOGICAL: Denies any joint pain, swelling, or any muscle pain. ENDOCRINE: Denies any polyuria or polydipsia. The rest of the 14-point review of systems is negative. 05/17/2017 maintained on vancomycin and Unasyn as per infectious disease. Evaluated by Dr. Henderson DPM, left second toe debrided, cultures obtained. Tolerated procedure well.denies chest pain, palpitations or increasing shortness of breath.afebrile. Objective - Vital Signs Vital signs: Vital Signs Temp 97.5 F L 05/17/17 14:50 Pulse 87 05/17/17 14:50 Resp 18 05/17/17 14:50 BP 150/86 05/17/17 14:50 Pulse Ox 96 05/17/17 14:50 Intake & Output 05/16/17 05/17/17 05/17/17 18:59 06:59 18:59 Output Total 800 2049 Balance - -2049 Weight 118 kg Output: Urine 800 2049 Other: Voiding Method Toilet Toilet Toilet Urinal Urinal Urinal # Voids 4 1 3 # Bowel Movements 2 - Exam GENERAL: The patient is alert and oriented x3, not in any acute distress. Well developed, well nourished. HEENT: Pupils are round and equally reacting to light. EOMI. No scleral icterus. No conjunctival pallor. Normocephalic, atraumatic. No pharyngeal erythema. No thyromegaly. CARDIOVASCULAR: S1 and S2 present. No murmurs, rubs, or gallops. PULMONARY: Chest is clear to auscultation, no wheezing or crackles. ABDOMEN: Soft, nontender, nondistended, normoactive bowel sounds. No palpable organomegaly. MUSCULOSKELETAL: No joint swelling or deformity. EXTREMITIES: No cyanosis, clubbing, or pedal edema. Left foot dressing clean dry and intact NEUROLOGICAL: Gross neurological examination did not reveal any focal deficits. SKIN: No rashes. Microbiology 05/15/17 14:59 Blood Blood Culture - Preliminary No Growth after 48 hours 05/17/17 08:26 Toe - Left Second Wound Culture - Preliminary 05/17/17 08:26 Toe - Left Second Anaerobic Culture - Preliminary 05/16/17 14:41 Toe - Left Second Gram Stain - Preliminary 05/16/17 14:41 Toe - Left Second Wound Culture - Preliminary 05/15/17 16:20 Foot - Left Gram Stain - Preliminary 05/15/17 16:20 Foot - Left Wound Culture - Preliminary Presumptive Staph aureus - Labs CBC & Chem 7: 05/17/17 08:52 05/17/17 08:52 Labs: Abnormal Lab Results - Last 24 Hours (Table) 05/17/17 05/17/17 Range/Units 08:52 08:52 RBC 4.09 L (4.30-5.90) m/uL Hgb 12.4 L (13.0-17.5) gm/dL Hct 36.0 L (39.0-53.0) % ESR 38 H (0-15) mm/hr Glucose 126 H (74-99) mg/dL Microbiology - Last 24 Hours (Table) 05/15/17 14:59 Blood Culture - Preliminary Blood No Growth after 48 hours 05/17/17 08:26 Wound Culture - Preliminary Toe - Left Second 05/17/17 08:26 Anaerobic Culture - Preliminary Toe - Left Second 05/16/17 14:41 Gram Stain - Preliminary Toe - Left Second Wound Culture - Preliminary 05/15/17 16:20 Gram Stain - Preliminary Foot - Left Wound Culture - Preliminary Presumptive Staph aureus Assessment and Plan Assessment: -Cellulitis of bilateral legs -significant left foot or deformity because of the severe osteoarthritis from injury and pes planus.idiopathic neuropathy left lower extremity with ulceration left second toe and ascending cellulitis.cultures reporting staph aureus, possible MRSA -Swelling of the left leg ruled out DVT -Multiple ulcerations with for which patient will need wound care and also rule out osteomyelitis infectious disease and pharmacy specialist will be consulted plan: Continue on current medication regime ,monitoring and symptomatic treatment. Antibiotics as per infectious disease. Follow cultures closely.potential PICC. The impression and plan of care has been dictated as directed. : I performed a history and examination of this patient, discussed the same with the dictator. I agree with the dictator's note ,documented as a scribe. Any additional findings or plans will be noted.
[2017-05-18] MEDS: AMPICILLIN-SULBACTAM 3 GM in SODIUM CHLORIDE 0.9% 100 ML IVPB SCH ×4 (01:18→18:52)
[2017-05-18] MEDS: SODIUM CHLORIDE 0.9% 1,000 ML IV SCH ×2 (03:32→15:48)
[2017-05-18] MEDS ORDERED: VANCOMYCIN TROUGH DUE 1 EACH MISC MISCELLANE ONE (10:00)
[2017-05-18] MEDS: VANCOMYCIN 1,750 MG in SODIUM CHLORIDE 0.9% 250 ML IVPB SCH ×2 (10:48→22:05)
--- NOTE | 2017-05-18 16:05 | P.PN ---
Subjective Progress Note Date: 05/18/17 Progress note being dictated for Dr. Pablo. interval history:Patient is a pleasant 77-year-old gentleman came in with the cellulitis of the bilateral for legs mostly in the left leg patient was sent in here by his foot doctor who was treating for cellulitis as an outpatient without any improvement and the patient had put deformity in the left foot after an injury on his tractor years ago and patient does have pes planus and multiple ulcerations in the left leg 1 in the mid collado area , second one on the second toe which may have osteomyelitis and the third one on the medial aspect of the calcaneus on the left side along with another ulcer on the right midshin area. Patient does have increasing redness which appears to have improved since yesterday patient was given Zosyn and was also started on vancomycin doesn 't take any medications at home patient is not a smoker not a diabetic patient does having Kreiser the temperature redness in the left leg redness in the right leg but no local is of temperature no tenderness in both legs. Patient denied any fevers chills at home. There is no purulence or polyps coming out of any of these wounds because of which I'm unable to get any wound cultures. Blood cultures were obtained infectious disease will be consulted along with the exercise specialist Review of Systems REVIEW OF SYSTEMS: CONSTITUTIONAL: No fever, no malaise, no fatigue. HEENT: No recent visual problems or hearing problems. Denied any sore throat. CARDIOVASCULAR: No chest pain, orthopnea, PND, no palpitations, no syncope. PULMONARY: No shortness of breath, no cough, no hemoptysis. GASTROINTESTINAL: No diarrhea, no nausea, no vomiting, no abdominal pain. Normoactive bowel sounds. NEUROLOGICAL: No headaches, no weakness, no numbness. HEMATOLOGICAL: Denies any bleeding or petechiae. GENITOURINARY: Denies any burning micturition, frequency, or urgency. MUSCULOSKELETAL/RHEUMATOLOGICAL: Denies any joint pain, swelling, or any muscle pain. ENDOCRINE: Denies any polyuria or polydipsia. The rest of the 14-point review of systems is negative. 05/17/2017 maintained on vancomycin and Unasyn as per infectious disease. Evaluated by Dr. Henderson DPM, left second toe debrided, cultures obtained. Tolerated procedure well.denies chest pain, palpitations or increasing shortness of breath.afebrile.30 05/18/17 maintained on IV antibiotics as per infectious disease. cultures reporting staph aureus. Dressing changed. Good diet intake with no nausea or vomiting. Denies chest pain, palpitations or increasing shortness of breath. Objective - Vital Signs Vital signs: Vital Signs Temp 97.0 F L 05/18/17 15:00 Pulse 80 05/18/17 15:00 Resp 24 05/18/17 15:00 BP 147/87 05/18/17 15:00 Pulse Ox 96 05/18/17 15:00 Intake & Output 05/17/17 05/18/17 05/18/17 18:59 06:59 18:59 Intake Total 1150 Output Total 200 Balance -200 1150 Weight 118 kg Intake: IV 1150 Ampicillin-Sulbactam 3 gm 100 In Sodium Chloride 0.9% 100 ml @ 100 mls/hr IVPB Q6HR [facility] Rx#:[id number] Sodium Chloride 0.9% 1, 800 000 ml @ 100 mls/hr IV . Q10H [facility] Rx#:[id number] Vancomycin 1,750 mg In 250 Sodium Chloride 0.9% 250 ml @ 125 mls/hr IVPB Q12H [facility] Rx#:[id number] Output: Urine 200 Other: Voiding Method Toilet Toilet Urinal Urinal # Voids 3 1 # Bowel Movements 2 - Exam GENERAL: The patient is alert and oriented x3, not in any acute distress. Well developed, well nourished. HEENT: Pupils are round and equally reacting to light. EOMI. No scleral icterus. No conjunctival pallor. Normocephalic, atraumatic. No pharyngeal erythema. No thyromegaly. CARDIOVASCULAR: S1 and S2 present. No murmurs, rubs, or gallops. PULMONARY: Chest is clear to auscultation, no wheezing or crackles. ABDOMEN: Soft, nontender, nondistended, normoactive bowel sounds. No palpable organomegaly. MUSCULOSKELETAL: No joint swelling or deformity. EXTREMITIES: No cyanosis, clubbing, or pedal edema. Left foot dressing clean dry and intact NEUROLOGICAL: Gross neurological examination did not reveal any focal deficits. SKIN: No rashes. 0 Microbiology 05/17/17 08:26 Toe - Left Second Gram Stain - Preliminary 05/17/17 08:26 Toe - Left Second Wound Culture - Preliminary Presumptive Staph aureus 05/15/17 14:59 Blood Blood Culture - Preliminary No Growth after 48 hours 05/17/17 08:26 Toe - Left Second Anaerobic Culture - Preliminary 05/16/17 14:41 Toe - Left Second Gram Stain - Preliminary 05/16/17 14:41 Toe - Left Second Wound Culture - Preliminary 05/15/17 16:20 Foot - Left Gram Stain - Preliminary 05/15/17 16:20 Foot - Left Wound Culture - Preliminary Presumptive Staph aureus - Labs CBC & Chem 7: 05/17/17 08:52 05/17/17 08:52 Labs: Microbiology - Last 24 Hours (Table) 05/17/17 08:26 Gram Stain - Preliminary Toe - Left Second Wound Culture - Preliminary Presumptive Staph aureus 05/15/17 14:59 Blood Culture - Preliminary Blood No Growth after 48 hours 05/17/17 08:26 Anaerobic Culture - Preliminary Toe - Left Second Assessment and Plan Assessment: -Cellulitis of bilateral legs -significant left foot or deformity because of the severe osteoarthritis from injury and pes planus.idiopathic neuropathy left lower extremity with ulceration left second toe and ascending cellulitis.cultures reporting staph aureus, possible MRSA -Swelling of the left leg ruled out DVT -Multiple ulcerations with for which patient will need wound care and also rule out osteomyelitis infectious disease and exercise specialist will be consulted plan: Continue on current medication regime ,monitoring and symptomatic treatment. Antibiotics as per infectious disease. Discharge planning in progress pending Final culture results. The impression and plan of care has been dictated as directed. : I performed a history and examination of this patient, discussed the same with the dictator. I agree with the dictator's note ,documented as a scribe. Any additional findings or plans will be noted.
--- NOTE | 2017-05-18 21:25 | PN ---
PROGRESS NOTE DATE OF SERVICE: 05/18/2017. REASON FOR FOLLOWUP: Left second toe osteomyelitis and staph aureus. INTERVAL HISTORY: The patient is afebrile. He is currently breathing comfortably. The patient denies having any chest pain, shortness of breath or cough. No abdominal pain or any worsening pain in the left foot area. EXAMINATION: Blood pressure is 147/87 with a pulse of 80, temperature 97. He is 96% on room air. General description is an elderly male lying in bed in no distress. Respiratory system: Unlabored breathing. Clear to auscultation anteriorly. Heart S1, S2. Regular rate and rhythm. Abdomen soft, no tenderness. Left second toe did have some swelling with minimal drainage. LABS: The wound culture showing a Staph aureus with sensitivities pending. DIAGNOSTIC IMPRESSION AND PLAN: Patient with left second toe tip osteomyelitis, cultures with Staph aureus waiting for the sensitivity. The patient likely will need a PICC line for outpatient IV antibiotic therapy. Local wound care with Aquacel Silver dressing. Continue supportive care. MMODL / IJN: [id number] /
[2017-05-19] MEDS: AMPICILLIN-SULBACTAM 3 GM in SODIUM CHLORIDE 0.9% 100 ML IVPB SCH ×4 (00:46→16:45)
[2017-05-19] MEDS: SODIUM CHLORIDE 0.9% 1,000 ML IV SCH ×2 (04:11→10:39)
[2017-05-19] MEDS: VANCOMYCIN 1,750 MG in SODIUM CHLORIDE 0.9% 250 ML IVPB SCH (10:39)
[2017-05-19] MEDS ORDERED: FUROSEMIDE 10 MG/ML 2 ML VIAL IV ONE (15:20)
--- NOTE | 2017-05-19 16:35 | PN ---
PROGRESS NOTE DATE OF SERVICE: 05/19/2017 This 77-year-old gentleman admitted with bilateral leg cellulitis, Staph grown from the culture. The final ID pending. No chest pain. No palpitations. No fever. PHYSICAL EXAM: Alert and oriented times three. Pulse 74. Blood pressure 116/84, respirations 16, temperature 97.8, pulse ox 98% on room air. HEENT: Conjunctivae normal. Oral mucosa moist. Neck is no jugular venous distention. No thyroid enlargement. No carotid bruit. No lymph node enlargement. Cardiovascular: S1, S2, respirations: Breath sounds diminished in the bases. A few scattered rhonchi and crackles. ABDOMEN: Soft, nontender. No mass palpable. Legs: Bilateral leg cellulitis present. Nervous system: No focal deficits. LAB STUDIES: At this time shows WBC 4, hemoglobin 12.4. ASSESSMENT: 1. Bilateral leg cellulitis with Staph aureus. 2. Significant left foot deformity from severe degenerative joint disease. 3. Hypertension. 4. Multiple ulcerations. RECOMMENDATION AND DISCUSSION: Recommend to continue current medication, continue symptomatic treatment. Otherwise I would recommend add Norvasc to the current regimen. Continue the antibiotics. Await final ID of the Staph. Closely follow with Infectious Disease. Possible PICC line per Dr. Rod. Further recommendations to follow. MMODL / IJN: [id number] /
[2017-05-19] MEDS: amLODIPine 5 MG TAB PO SCH (16:45)
[2017-05-19] MEDS: ceFAZolin IN SWFI 2 GM/20 ML SYRINGE IVP SCH (23:01)
--- NOTE | 2017-05-19 23:02 | PN ---
PROGRESS NOTE DATE OF SERVICE: 05/19/2017. REASON FOR FOLLOWUP: Left second toe MSSA osteomyelitis. INTERVAL HISTORY: The patient is afebrile. He is breathing comfortably. Denies having any chest pain, shortness of breath, abdominal pain, or any pain in her left foot area. EXAMINATION: Blood pressure 169/84 with a pulse of 74, temperature 97.5. He is 98% on room air. General description is an elderly male lying in bed in no distress. RESPIRATORY SYSTEM: Unlabored breathing. Clear to auscultation anteriorly. HEART: S1, S2. Regular rate and rhythm. ABDOMEN: Soft. No tenderness. Left foot is currently dressed up. No obvious drainage on the dressing. LABS: Hemoglobin is 12.4, white count of 4.0, BUN of 16, creatinine 0.93. Blood culture negative. Wound culture finalized with MSSA. DIAGNOSTIC IMPRESSION AND PLAN: Patient with methicillin-sensitive Staphylococcus aureus left 2nd toe osteomyelitis. Antibiotic will be adjusted to cefazolin 2 g q.8h. We will get a PICC line on Sunday and admission for outpatient IV antibiotic therapy for a total of 6 weeks. Continue supportive care. MMODL / IJN: [id number] /
[2017-05-20] MEDS: ceFAZolin IN SWFI 2 GM/20 ML SYRINGE IVP SCH ×3 (07:45→23:37)
[2017-05-20] MEDS: amLODIPine 5 MG TAB PO SCH (07:46)
[2017-05-20 08:25] LABS: Anion Gap 11 mmol/L; Blood Urea Nitrogen 16 mg/dL (9-20); Calcium 9.3 mg/dL (8.4-10.2); Carbon Dioxide 29 mmol/L (22-30); Chloride 100 mmol/L (98-107); Glucose 90 mg/dL (74-99); Potassium 4.6 mmol/L (3.5-5.1); Sodium 140 mmol/L (137-145)
--- NOTE | 2017-05-20 11:42 | P.PN ---
Subjective Progress Note Date: 05/20/17 Principal diagnosis: Bilateral lower extremity cellulitis, left foot second toe infection This is a 77-year-old male patient who was admitted with bilateral lower extremity cellulitis. The patient struggles with venous insufficiency and was having some redness that he noted for about a week. He called his conduit cleaner and was seen approximately 10 days after he first noticed it. He was instructed to come to the emergency department for IV antibiotic therapy. His cellulitis has significantly improved. He continues to be on Unasyn per infectious disease specialist. He is receiving wound care for his left foot second toe. There is no drainage from this area. He's afebrile and hemodynamically stable. He denies any discomfort. Objective - Vital Signs Vital signs: Vital Signs Temp 98.0 F 05/20/17 06:35 Pulse 85 05/20/17 06:35 Resp 18 05/20/17 06:35 BP 153/87 05/20/17 06:35 Pulse Ox 96 05/20/17 06:35 Intake & Output 05/19/17 05/20/17 05/20/17 18:59 06:59 18:59 Intake Total 1050 Output Total 1500 1200 500 Balance -1500 -150 -500 Intake: IV 1050 Sodium Chloride 0.9% 1, 800 000 ml @ 100 mls/hr IV . Q10H KARL Rx#:[id number] Vancomycin 1,750 mg In 250 Sodium Chloride 0.9% 250 ml @ 125 mls/hr IVPB Q12H KARL Rx#:[id number] Output: Urine 1500 1200 500 Other: Voiding Method Toilet Toilet Urinal Urinal - Constitutional General appearance: Present: obese - EENT Eyes: Present: normal appearance ENT: Present: normal oropharynx Ears: bilateral: normal - Neck Neck: Present: normal ROM - Respiratory Respiratory: bilateral: CTA - Cardiovascular Rhythm: regular Heart sounds: normal: S1, S2 - Gastrointestinal General gastrointestinal: Present: distended, normal bowel sounds, soft - Integumentary Integumentary Comment(s): Bilateral lower extremities significantly improved. Integumentary: Present: cellulitis - Neurologic Neurologic: Present: CNII-XII intact - Musculoskeletal Musculoskeletal: Present: gait normal - Psychiatric Psychiatric: Present: A&O x's 3, appropriate affect - Labs CBC & Chem 7: 05/17/17 08:52 05/20/17 07:41 Labs: Microbiology - Last 24 Hours (Table) 05/16/17 14:41 Gram Stain - Final Toe - Left Second Wound Culture - Final Staphylococcus aureus 05/15/17 16:20 Gram Stain - Final Foot - Left Wound Culture - Final Staphylococcus aureus 05/15/17 14:59 Blood Culture - Preliminary Blood No Growth after 96 hours 05/17/17 08:26 Anaerobic Culture - Preliminary Toe - Left Second Assessment and Plan Assessment: Bilateral lower extremity cellulitis with MSSA Left foot second toe ulcer Left foot deformity from severe degenerative joint disease Hypertension Plan: Continue with current medication regimen. IV antibiotics per infectious disease specialist. His blood pressure is controlled with the addition of Norvasc. Wait for final cultures to determine if the patient will require IV antibiotics. I will arrangements will be made if necessary for PICC line. If the patient is appropriate for oral treatment, likely he will be ready for discharge home tomorrow.
--- NOTE | 2017-05-20 23:09 | PN ---
PROGRESS NOTE DATE OF SERVICE: 05/20/2017. REASON FOR FOLLOWUP: Left 2nd toe MSSA, osteomyelitis. INTERVAL HISTORY: The patient is afebrile. He is breathing comfortably. Denies having any chest pain, shortness of breath or cough. No abdominal pain or any pain in the left second toe area. EXAMINATION: Blood pressure 145/75 with a pulse of 85, temperature of 96.1. He is 96% on room air. General description is an elderly male lying in bed in no distress. Respiratory system unlabored breathing. Clear to auscultation anteriorly. Heart S1, S2. Regular rate and rhythm. Abdomen soft, no tenderness. Left second toe tip with wound swelling slightly decreased, no drainage. LABS: BUN of 16, creatinine 0.91, ESR 38. DIAGNOSTIC IMPRESSION/PLAN: Patient with left second toe osteomyelitis. Culture positive for MSSA. Antibiotic in the form of cefazolin 2 g q.8h and a PICC line for tomorrow. Once antibiotic arranged, he should go home from ID standpoint. Continue supportive care. MMODL / IJN: [id number] / MTDD
[2017-05-21 00:31] VITALS: RESP 20; TEMP 97.5
[2017-05-21 06:26] VITALS: BP 143/74; PULSE 78
[2017-05-21] MEDS: amLODIPine 5 MG TAB PO SCH (07:57)
[2017-05-21] MEDS: ceFAZolin IN SWFI 2 GM/20 ML SYRINGE IVP SCH ×2 (07:57→15:02)
[2017-05-21 09:09] LABS: Anion Gap 15 mmol/L; Blood Urea Nitrogen 17 mg/dL (9-20); Calcium 9.5 mg/dL (8.4-10.2); Carbon Dioxide 28 mmol/L (22-30); Chloride 98 mmol/L (98-107); Glucose 97 mg/dL (74-99); Potassium 4.7 mmol/L (3.5-5.1); Sodium 141 mmol/L (137-145)
[2017-05-21] MEDS ORDERED: LIDOCAINE 2% INJ 20 MG/ML SQ ONE (09:32)
[2017-05-21] MEDS ORDERED: IOHEXOL 300 MG/ML 50 ML BOTTLE IV ONE (09:44)
--- NOTE | 2017-05-21 11:11 | IR ---
PICC LINE PLACEMENT: HISTORY: Infection requiring long-term antibiotic therapy PROCEDURE: Ultrasound and fluoroscopic guidance of PICC line placement. COMPLICATIONS: None ANESTHESIA: 1. 1% Lidocaine locally. FINDINGS/TECHNIQUE: The procedure was explained to the patient. The risks, complications, benefits and alternatives were discussed and any questions were answered. Informed consent was obtained. The patient was placed supine on the fluoroscopic table and prepped and draped in the usual sterile [facility] ion. Utilizing a 21 gauge needle and sonographic and fluoroscopic guidance, access in the vein was achieved and there is placement of a 0.018 guidewire. The vein is patent. A 4-F sheath was placed o donna the guidewire. The guidewire and dilator were removed and a 4-F. PICC line was placed through th e sheath with the tip at the level of the SVC. The sheath was removed, the catheter was flushed and sutured into position. The patient was stable throughout the procedure and remained stable upon disc harge from the Department of Radiology. The vein puncture was patent under ultrasound. A lin scale image was obtained to document patency of the vein punctured. All elements of the maximal barrier technique were utilized. FLUOROSCOPY TIME: 0.2 minutes, one image submitted IMPRESSION: Successful PICC line placement under ultrasound and fluoroscopic guidance.
--- NOTE | 2017-05-21 14:25 | P.DS ---
Providers Date of admission: 05/15/17 16:20 Attending physician: Evaristo Ruiz Consults: 05/16/17 12:07 Consult Physician Routine Consulting Provider: Leslie Rod Consult Reason/Comments: Cellulitis Do you want consulting provider notified?: Yes 05/16/17 12:08 Consult Physician Routine Consulting Provider: Negrito Henderson Consult Reason/Comments: left foot ulcer/deformity Do you want consulting provider notified?: Yes Primary care physician: Yo [facility] Course: 77-year-old male patient who was admitted with bilateral lower extremity cellulitis. The patient struggles with venous insufficiency and was having some redness that he noted for about a week. He called his barytes grinder and was seen approximately 10 days after he first noticed it. He was instructed to come to the emergency department for IV antibiotic therapy. His cellulitis has significantly improved. He continues to be on Unasyn per infectious disease specialist. He is receiving wound care for his left foot second toe. There is no drainage from this area. He's afebrile and hemodynamically stable. He denies any discomfort. 05/21/2017 Patient is doing much better today patient appears to have MSSA and patient is being discharged on ceftezole and as recommended by infectious disease and patient is being started on amlodipine for hypertension. Bilateral lower extremity cellulitis with MSSA Left foot second toe ulcer Left foot deformity from severe degenerative joint disease Hypertension GENERAL: The patient is alert and oriented x3, not in any acute distress. Well developed, well nourished. HEENT: Pupils are round and equally reacting to light. EOMI. No scleral icterus. No conjunctival pallor. Normocephalic, atraumatic. No pharyngeal erythema. No thyromegaly. CARDIOVASCULAR: S1 and S2 present. No murmurs, rubs, or gallops. PULMONARY: Chest is clear to auscultation, no wheezing or crackles. ABDOMEN: Soft, nontender, nondistended, normoactive bowel sounds. No palpable organomegaly. MUSCULOSKELETAL: No joint swelling or deformity. EXTREMITIES: Cellulitis redness or infection did improve NEUROLOGICAL: Gross neurological examination did not reveal any focal deficits. SKIN: No rashes. Patient Condition at Discharge: Stable Plan - Discharge Summary Discharge Rx Participant: Yes New Discharge Prescriptions: New Acetaminophen Tab [Tylenol] 650 mg PO Q6HR PRN #30 tab PRN Reason: Mild Pain Or Fever > 100.5 amLODIPine [Norvasc] 5 mg PO DAILY #30 tab ceFAZolin [Kefzol] 2 gm IVP Q8HR syringe Discharge Medication List Acetaminophen Tab [Tylenol] 650 mg PO Q6HR PRN #30 tab 05/21/17 [Rx] amLODIPine [Norvasc] 5 mg PO DAILY #30 tab 05/21/17 [Rx] ceFAZolin [Kefzol] 2 gm IVP Q8HR syringe 05/21/17 [Rx] Follow up Appointment(s)/Referral(s): Negrito Henderson DPM [STAFF PHYSICIAN] - 05/29/17 4:15 pm [facility], [NON-STAFF] - [facility], [REFERRING] - Yo Mejía DO [Primary Care Provider] - 05/22/17 1:00 pm Leslie Rod MD [STAFF PHYSICIAN] - 05/31/17 9:15 am Activity/Diet/Wound Care/Special Instructions: KENSAL OFFICE FOR FOLLOWUP WITH DR. MEJÍA Discharge Disposition: HOME WITH HOME HEALTH SERVICES
--- NOTE | 2017-05-21 17:04 | PN ---
PROGRESS NOTE DATE OF SERVICE: 05/21/2017 REASON FOR FOLLOWUP: Left second toe osteomyelitis. INTERVAL HISTORY: The patient is afebrile. He is breathing comfortably. Denies having any chest pain, shortness of breath or cough. No abdominal pain or any pain in the left foot area. PHYSICAL EXAMINATION: Blood pressure 143/74 with a pulse of 78, temperature 97.5. He is 97% on room air. General description is an elderly male lying in bed in no distress. RESPIRATORY SYSTEM: Unlabored breathing. Clear to auscultation anteriorly. HEART: S1, S2. Regular rate and rhythm. ABDOMEN: Soft. No tenderness. LABS: BUN of 17, creatinine 0.90. DIAGNOSTIC IMPRESSION AND PLAN: Patient with left second toe osteomyelitis methicillin-susceptible Staphylococcus aeruginosa . Plan at this time is to continue with cefazolin 2 grams q.8 to finish HIS course of therapy with weekly monitoring of CBC, BMP and sed rate. Prescription has been written for the patient. Continue with supportive care. MMODL / IJN: [id number] / MTDD
--- NOTE | 2017-05-29 12:58 | CDI ---
Documentation Clarification Form Date: 05/29/17 From: Dary Amos Admit Date: 05/15/2017 4:20:00 PM Patient Name: Darian Stafford Visit Number: [id number] Discharge Date: 05/21/17 ATTENTION: The Clinical Documentation Specialists (CDI) and [facility] Coding Staff appreciate your assistance in clarifying documentation. Please respond to the clarification below the line at the bottom and electronically sign. The CDI & [facility] Coding staff will review the response and follow-up if needed. Please note: Queries are made part of the Legal Health Record. If you have any questions, please contact the author of this message via ITS. Dr. Nelson Marcel multiple ulcerations in the left leg 1 in the mid collado area , second one on the second toe which may have osteomyelitis and the third one on the medial aspect of the calcaneus on the left side stage 3 along with another ulcer on the right midshin area stage 2. Patient history/risk factors: Patient has venous insufficiency Wound assessment: Wound care calls it a stasis ulcer Treatment: patient was given Zosyn on vancomycin, PICC inserted for anitbiotic In your professional opinion, can the etiology and severity of the wound be further specified as one of the following? Etiology: Non-pressure chronic ulcer not due to venous insufficiency Non-pressure chronic ulcer due to venous insufficiency Pressure ulcer\ulcers Other, Please specify Non-pressure ulcer due to venous insufficiency MTDD
--- NOTE | 2017-05-29 13:14 | CDI ---
Documentation Clarification Form Date: 05/29/17 From: Dary Amos Admit Date: 05/15/2017 4:20:00 PM Patient Name: Darian Stafford Visit Number: [id number] Discharge Date: 05/21/17 ATTENTION: The Clinical Documentation Specialists (CDI) and [facility] Coding Staff appreciate your assistance in clarifying documentation. Please respond to the clarification below the line at the bottom and electronically sign. The CDI & [facility] Coding staff will review the response and follow-up if needed. Please note: Queries are made part of the Legal Health Record. If you have any questions, please contact the author of this message via ITS. Dr. Negrito Henderson Per your progress notes/operative note, a debridement was performed on 05/17. We debrided the necrotic tissue about the area of the left second toe. Orders for wound care as well as repeat culture and sensitivity of this area. Patient will continue IV antibiotics and should respond favorably. History/Risk Factors: multiple ulcers to legs and toe In order to capture the severity of condition and code the appropriate procedure ; could you please document the following: Excisional debridement (the removal of necrotic, devitalized tissue or slough by means of cutting away of tissue) Non-excisional debridement (the removal of necrotic, devitalized tissue or slough by means of flushing, brushing, or washing. (Irrigation) Other; please specify Unable to determine (no explanation for clinical findings) MTDD
--- NOTE | 2017-07-04 08:00 | CDI ---
Documentation Clarification Form Date: 07/04/17 From: Dary Amos Admit Date: 05/15/2017 4:20:00 PM Patient Name: Darian Stafford Visit Number: [id number] Discharge Date: 05/21/17 ATTENTION: The Clinical Documentation Specialists (CDI) and [facility] Coding Staff appreciate your assistance in clarifying documentation. Please respond to the clarification below the line at the bottom and electronically sign. The CDI & [facility] Coding staff will review the response and follow-up if needed. Please note: Queries are made part of the Legal Health Record. If you have any questions, please contact the author of this message via ITS. Dr. Negrito Henderson Per your progress notes/operative note, a debridement was performed on 05/17. We debrided the necrotic tissue about the area of the left second toe. Orders for wound care as well as repeat culture and sensitivity of this area. Patient will continue IV antibiotics and should respond favorably. History/Risk Factors: multiple ulcers to legs and toe In order to capture the severity of condition and code the appropriate procedure ; could you please document the following: Excisional debridement (the removal of necrotic, devitalized tissue or slough by means of cutting away of tissue) Non-excisional debridement (the removal of necrotic, devitalized tissue or slough by means of flushing, brushing, or washing. (Irrigation) Other; please specify Unable to determine (no explanation for clinical findings) ___excision MTDD
== END 2017-05-21 15:08 | disposition home health service (06) | DRG 464 ==
LOC: EC 12:32 → 4MS4W 16:20
PROVIDERS: ADMIT Internal Medicine; ATTEND Internal Medicine
PROC: 0JBR0ZZ Excision of Left Foot Subcutaneous Tissue and Fascia, Open Approach (ICD-10-PCS; 2017-05-17)
PROC: 02HV33Z Insertion of Infusion Device into Superior Vena Cava, Percutaneous Approach (ICD-10-PCS; principal; 2017-05-21 09:15)
DX: M86.9 Osteomyelitis, unspecified (principal); L03.116 Cellulitis of left lower limb; L03.115 Cellulitis of right lower limb; L97.829 Non-pressure chronic ulcer of other part of left lower leg with unspecified severity; L97.819 Non-pressure chronic ulcer of other part of right lower leg with unspecified severity; M21.40 Flat foot [pes planus] (acquired), unspecified foot; B95.61 Methicillin susceptible Staphylococcus aureus infection as the cause of diseases classified elsewhere; I10 Essential (primary) hypertension; I87.2 Venous insufficiency (chronic) (peripheral); M20.42 Other hammer toe(s) (acquired), left foot; M20.41 Other hammer toe(s) (acquired), right foot; G60.9 Hereditary and idiopathic neuropathy, unspecified; E78.5 Hyperlipidemia, unspecified; M21.962 Unspecified acquired deformity of left lower leg; M19.072 Primary osteoarthritis, left ankle and foot; Z83.2 Family history of diseases of the blood and blood-forming organs and certain disorders involving the immune mechanism; Z82.49 Family history of ischemic heart disease and other diseases of the circulatory system; Z90.49 Acquired absence of other specified parts of digestive tract; Z86.73 Personal history of transient ischemic attack (TIA), and cerebral infarction without residual deficits; Z86.19 Personal history of other infectious and parasitic diseases; Z87.19 Personal history of other diseases of the digestive system; Z79.899 Other long term (current) drug therapy
CPT/HCPCS: 36415; 36569; 76937; 77001; 78315; 80048; 80053; 80202; 85025; 85027; 85610; 85652; 85730; 87040; 87070; 87075; 87077; 87186; 87205; 96361; 96365; 99284

== ENCOUNTER 2018-01-18 08:48 | Day surgery (SDC) | payer MEDICARE ==
[2018-01-16 11:10] VITALS: BMI 33.9
[~2018-01-18 08:48] MED LIST: ALPRAZolam 0.25 MG TAB PO PRN; ASPIRIN 325 MG TAB PO STA; SODIUM CHLORIDE 0.9% 1,000 ML in EMPTY BAG 1 BAG IV ONE
[2018-01-18] MEDS ORDERED: MIDAZOLAM 2 MG/2 ML VIAL IV ONE (12:03)
[2018-01-18] MEDS ORDERED: LIDOCAINE 1% INJ 10MG/ML (20 ML MDV) SQ ONE (12:05)
[2018-01-18] MEDS ORDERED: HEPARIN SODIUM 1,000 UN/ML (10ML VL) IV ONE (12:10)
[2018-01-18] MEDS ORDERED: niCARdipine Syringe (1,000 mcg/10 mL) INTRAARTER ONE (12:52)
[2018-01-18] MEDS ORDERED: NITROGLYCERIN 1000MCG/10ML SYRINGE INTRAARTER ONE (12:52)
[2018-01-18] MEDS ORDERED: CLOPIDOGREL 75 MG TAB PO ONE (12:55)
[2018-01-18] MEDS ORDERED: IOPAMIDOL-250 100ML BTL INTRAARTER ONE (13:05)
--- NOTE | 2018-01-18 13:28 | IR ---
EXAMINATION TYPE: IR door captain tibioperoneal branchs DATE OF EXAM: 01/18/2018 COMPARISON: NONE HISTORY: Peripheral vascular occlusive disease. Fluoroscopy was provided to the referring clinician. See dictated report from cardiology.
[2018-01-18] MEDS ORDERED: SODIUM CHLORIDE 0.9% 1,000 ML IV SCH (13:30)
--- NOTE | 2018-01-18 13:59 | AN ---
ANGIOGRAPHY REPORT PERCUTANEOUS PERIPHERAL INTERVENTION: DATE OF SERVICE: 01/18/2018 PERFORMING PHYSICIAN: Wale Resendiz MD, Pharmaceutical Salesperson. PROCEDURE PERFORMED: 1. Selective right hcark-tus-xgek angiogram. 2. Selective right peroneal angiogram. 3. Successful balloon angioplasty of the right peroneal using 3.4 mm x 60 mm balloon with good angiographic results and reduction of stenosis from 80% to 0%. INDICATION: This is a pleasant 77-year-old gentleman who sees Dr. Armstrong [facility] for critical limb ischemia of the right leg as well as sees Dr. Capone in the office who was diagnosed with CLI recently. He underwent a peripheral angiogram and that showed severe jmlcp-vhn-dphi disease on the right side with critical right anterior tibial, peroneal, and posterior tibial. He was brought today to undergo a COMPUTER SYSTEMS MANAGER. APPROACH: Left common femoral artery. COMPLICATION: None. LEVEL OF SEDATION: Moderate with a sedation length of 61 minutes. PROCEDURE DESCRIPTION: After obtaining an informed consent, the patient was brought to the cardiac supervisor labor gang. The left common femoral artery was cannulated using micropuncture technique and a micropuncture wire passed easily, then I placed a 6-Tajik sheath 11 cm in the left common femoral artery. After that I did select the right SFA using .035 Glidewire with the support of 5-Tajik Rim catheter. A Glidewire was advanced all the way to the right SFA. After that, I did exchange my 11 cm 6-Tajik sheath into 70 cm 6-Tajik sheath using .035 Glidewire. The sheath was advanced all the way to the mid right SFA. After that, I did selective right rlyfg-tsn-gzrr angiogram and selective right peroneal angiogram using a CXI catheter. After that I crossed the lesion in the right peroneal using a .[address] [place] [address] wire. After that I did balloon angioplasty initially using 2.5 x 80 and then 3.0 x 80 mm balloon. The following angiogram showed excellent angiographic results with reduction of stenosis from 80% to 0% and without any complication. Subsequently, I did exchange my long sheath into short sheath using .035 Glidewire. After that I did select selective left common femoral artery angiogram before the procedure was completed. POSTPROCEDURE MANAGEMENT: 1. Dual anti-platelet therapy. 2. Risk factor modifications and follow up with the patient. MMODL / IJN: [id number] /
[2018-01-18] MEDS ORDERED: hydrALAZINE HCL 20 MG/ML 1 ML VIAL IVP PRN (14:07)
[2018-01-18] MEDS ORDERED: hydrALAZINE HCL 20 MG/ML 1 ML VIAL IVP ONE (15:15)
[2018-01-18] MEDS ORDERED: FUROSEMIDE 10 MG/ML 2 ML VIAL IV STA (16:00)
[2018-01-18] MEDS ORDERED: ENALAPRILAT 1.25 MG/ML 1 ML VIAL IVP STA (16:00)
[2018-01-18] MEDS ORDERED: FUROSEMIDE 10 MG/ML 4 ML VIAL ONE (16:01)
[2018-01-18] MEDS ORDERED: ENALAPRILAT 1.25 MG/ML 1 ML VIAL ONE (16:01)
[2018-01-18] MEDS: CEPHALEXIN 500 MG CAP PO SCH ×2 (18:51→23:41)
[2018-01-18] MEDS: LOSARTAN 25 MG TAB PO SCH (20:08)
[2018-01-18] MEDS: METOPROLOL TARTRATE 25 MG TAB PO SCH (20:08)
[2018-01-18] MEDS ORDERED: ATORVASTATIN 20 MG TAB PO SCH (21:00)
[2018-01-19 07:35] LABS: Basophils % (A) 1 %; Eosinophils # (A) 0.5 k/uL (0-0.7); Eosinophils % (A) 7 %; HCT 41.1 % (39.0-53.0); HGB 13.2 gm/dL (13.0-17.5); Lymphocytes # (A) 1.1 k/uL (1.0-4.8); Lymphocytes % (A) 17 %; MCH 29.1 pg (25.0-35.0); MCHC 32.2 g/dL (31.0-37.0); MCV 90.2 fL (80.0-100.0); Mean Platelet Volume 6.6; Monocytes # (A) 0.5 k/uL (0-1.0); Monocytes % (A) 7 %; Neutrophils # (A) 4.2 k/uL (1.3-7.7); Neutrophils % (A) 66 %; Platelet Count 190 k/uL (150-450); RBC 4.55 m/uL (4.30-5.90); RDW 14.3 % (11.5-15.5); WBC 6.4 k/uL (3.8-10.6)
[2018-01-19 07:49] LABS: Anion Gap 8 mmol/L; Blood Urea Nitrogen 18 mg/dL (9-20); Calcium 9.4 mg/dL (8.4-10.2); Carbon Dioxide 26 mmol/L (22-30); Chloride 104 mmol/L (98-107); Glucose 98 mg/dL (74-99); Potassium 4.2 mmol/L (3.5-5.1); Sodium 138 mmol/L (137-145)
[2018-01-19] MEDS ORDERED: CLOPIDOGREL 75 MG TAB PO SCH (09:00)
[2018-01-19] MEDS ORDERED: ASPIRIN 325 MG TAB PO SCH (09:00)
[2018-01-19] MEDS: METOPROLOL TARTRATE 25 MG TAB PO SCH (09:04)
[2018-01-19] MEDS: CEPHALEXIN 500 MG CAP PO SCH (09:04)
[2018-01-19] MEDS: LOSARTAN 25 MG TAB PO SCH (09:04)
[2018-01-19 09:38] VITALS: BP 112/76; PULSE 96; RESP 16; TEMP 98.1
--- NOTE | 2018-01-19 10:42 | DS ---
DISCHARGE SUMMARY ADMISSION DATE: 01/18/2018 DISCHARGE DATE: 01/19/2018 BRIEF HISTORY: This is a pleasant 77-year-old gentleman with known severe peripheral arterial disease and known critical limb ischemia of the right foot, who underwent a peripheral angiogram a few weeks ago and that revealed critical xxycw-ewh-ujca disease on the right side with severe disease involving the anterior tibial, posterior tibial, and peroneal. The patient was admitted to the hospital yesterday and underwent successful balloon angioplasty of the right peroneal artery with good angiographic results and without any complication from the left groin approach. On follow up with him today, he is asymptomatic from the cardiovascular standpoint of view. The left groin which was the access site is soft and nontender and without any bruises. The patient is going to be discharged home on dual anti-platelet therapy and I will follow up with the patient in the office next week. MMOLEG / REHAN: [id number] /
== END 2018-01-19 12:08 | disposition home or self-care (01) ==
LOC: CATHCVL 08:48 → 3SCARD 16:46 → CATHCVL 01-19 12:08
PROVIDERS: ATTEND Internal Medicine Interventional Cardiology
DX: I70.201 Unspecified atherosclerosis of native arteries of extremities, right leg (principal); E11.51 Type 2 diabetes mellitus with diabetic peripheral angiopathy without gangrene; I48.2 Chronic atrial fibrillation; L03.115 Cellulitis of right lower limb; I10 Essential (primary) hypertension; E78.5 Hyperlipidemia, unspecified; Z89.422 Acquired absence of other left toe(s); Z89.421 Acquired absence of other right toe(s)
CPT/HCPCS: 37228; 80048; 85025; C1894 ×2; C1769 ×5; C1725; J2250; J0360; J1940; J2001; J1644; Q9966

== ENCOUNTER 2018-03-20 06:27 | Day surgery (SDC) | payer MEDICARE ==
[2018-03-18 15:43] VITALS: BMI 33.9
[2018-03-20] MEDS ORDERED: SODIUM CHLORIDE 0.9% 1,000 ML in EMPTY BAG 1 BAG IV ONE (06:40)
[2018-03-20 07:15] LABS: HCT 39.4 % (39.0-53.0); HGB 13.3 gm/dL (13.0-17.5); MCH 30.5 pg (25.0-35.0); MCHC 33.8 g/dL (31.0-37.0); MCV 90.5 fL (80.0-100.0); Mean Platelet Volume 7.1; Platelet Count 186 k/uL (150-450); RBC 4.35 m/uL (4.30-5.90); RDW 15.3 % (11.5-15.5); WBC 5.8 k/uL (3.8-10.6)
[2018-03-20 07:28] LABS: Calcium 9.1 mg/dL (8.4-10.2); Potassium 4.1 mmol/L (3.5-5.1)
[2018-03-20] MEDS ORDERED: MIDAZOLAM 2 MG/2 ML VIAL IV ONE (07:48)
[2018-03-20] MEDS ORDERED: LIDOCAINE 1% INJ 10MG/ML (20 ML MDV) SQ ONE (07:52)
[2018-03-20 08:20] LABS: Eosinophils # (M) 0.75 k/uL (0-0.7); Lymphocytes # (M) 1.33 k/uL (1.0-4.8); Monocytes # (M) 0.81 k/uL (0-1.0); Neutrophils % (M) 50 %; Nucleated Red Blood Cells 0 /100 WBC (0-0); Total Cells Counted 100
[2018-03-20] MEDS: NITROGLYCERIN 1000MCG/10ML SYRINGE INTRAARTER ONE ×2 (08:48→08:57)
[2018-03-20] MEDS: niCARdipine Syringe (1,000 mcg/10 mL) INTRAARTER ONE ×2 (08:49→08:57)
[2018-03-20] MEDS ORDERED: CLOPIDOGREL 75 MG TAB PO ONE (09:07)
[2018-03-20] MEDS ORDERED: IOPAMIDOL-250 100ML BTL INTRAARTER ONE (09:09)
[2018-03-20] MEDS ORDERED: PROTAMINE SULFATE 10 MG/ML 5 ML VIAL IV ONE (09:12)
[2018-03-20] MEDS ORDERED: fentaNYL (PF) 50 MCG/ML 2 ML AMP IV ONE (09:16)
--- NOTE | 2018-03-20 09:55 | AN ---
ANGIOGRAPHY REPORT DATE OF SERVICE: March 20, 2018 PERFORMING PHYSICIAN: Wale Resendiz MD, tobacco wetter. PROCEDURE PERFORMED: 1. Selective right posterior tibial angiogram. 2. An atherectomy of the right posterior tibial artery using the orbital atherectomy device from [facility]. 3. Successful balloon angioplasty of the right posterior tibial artery using 3.0 x 200 mm balloon with an excellent angiographic results. Reduction of stenosis from 90% to 0%. INDICATION: This is a pleasant 77-year-old gentleman who was diagnosed recently with critical limb ischemia of the right leg. He was seen and evaluated by Dr. Armstrong. He underwent a peripheral angiogram and that showed severe disease involving right tnket-yvr-cfpx with critical right anterior tibial, severe disease involving the right peroneal artery, and critical disease involving the right posterior tibial artery. He underwent balloon angioplasty of the right peroneal and he was brought today to undergo balloon angioplasty of the right posterior tibial artery. APPROACH: Left common femoral artery. COMPLICATION: None. LEVEL OF SEDATION: Moderate with sedation length of 78 minutes. PROCEDURE DESCRIPTION: After obtaining an informed consent, the patient was brought to cardiac dental laboratory technician. The left common femoral artery was cannulated using micropuncture technique, the micropuncture wire passed easily then I placed a 6-Zimbabwean sheath 11 cm in the left common femoral artery. I did select right SFA using a 5-Zimbabwean Omni flush catheter with 0.035 Artemas Advantage wire. Subsequently I did exchange my 11 cm sheath into 90 cm 6-Zimbabwean right Raabe sheath using the 0.035 Artemas Advantage wire and the tip of the Raabe sheath was positioned in the right popliteal artery. Anticoagulation was initiated using heparin with 10,000 at the beginning of the procedure and 3000 throughout the procedure with continuous ACT monitoring. Subsequently I did wire the right posterior tibial artery using 0.[address] wire. I did exchange the wire into ViperWire using a 0.014 CXI catheter. Subsequently I did atherectomy of the right posterior tibial artery using the orbital atherectomy device with 1.25 mm anita. I did after that balloon angioplasty. The balloon angioplasty was performed using 3 mm x 200 mm balloon. For the very distal part of the right posterior tibial artery, which I did not . I did balloon angioplasty using 3.5 mm AngioSculpt balloon. The final angiogram was excellent with good angiographic results and without any dissection. Subsequently I did exchange my long sheath into short sheath using the 0.035 wire. I attempted doing Perclose, but that failed because of the long tract beneath the skin and because of the severe scar tissue. The procedure was completed without any complication. POSTPROCEDURE MANAGEMENT: 1. Dual antiplatelet therapy. 2. Risk factor modification. 3. Follow up with the patient. MMOLEG / IJN: [id number] /
[2018-03-20] MEDS ORDERED: SODIUM CHLORIDE 0.9% 1,000 ML IV SCH (13:00)
[2018-03-20] MEDS: METOPROLOL TARTRATE 25 MG TAB PO SCH (20:25)
[2018-03-20] MEDS: LOSARTAN 25 MG TAB PO SCH (20:25)
[2018-03-20] MEDS ORDERED: ATORVASTATIN 20 MG TAB PO SCH (21:00)
[2018-03-21 06:40] LABS: HGB 13.2 gm/dL (13.0-17.5); MCH 31.3 pg (25.0-35.0); MCHC 33.7 g/dL (31.0-37.0); MCV 92.9 fL (80.0-100.0); Mean Platelet Volume 6.9; Platelet Count 168 k/uL (150-450); RDW 15.6 % (11.5-15.5); WBC 6.8 k/uL (3.8-10.6)
[2018-03-21 06:43] LABS: Calcium 9.2 mg/dL (8.4-10.2); Potassium 4.1 mmol/L (3.5-5.1)
[2018-03-21 07:21] LABS: Eosinophils # (M) 0.41 k/uL (0-0.7); Lymphocytes # (M) 2.45 k/uL (1.0-4.8); Monocytes # (M) 0.41 k/uL (0-1.0); Neutrophils # (M) 3.54 k/uL (1.3-7.7); Neutrophils % (M) 52 %; Nucleated Red Blood Cells 0 /100 WBC (0-0); Total Cells Counted 100
[2018-03-21] MEDS ORDERED: CLOPIDOGREL 75 MG TAB PO SCH (09:00)
[2018-03-21] MEDS ORDERED: amLODIPine 5 MG TAB PO SCH (09:00)
[2018-03-21] MEDS ORDERED: ASPIRIN 325 MG TAB PO SCH (09:00)
[2018-03-21 09:52] VITALS: BP 174/84; PULSE 95; RESP 18; TEMP 97.4
[2018-03-21] MEDS: METOPROLOL TARTRATE 25 MG TAB PO SCH (09:52)
[2018-03-21] MEDS: LOSARTAN 25 MG TAB PO SCH (09:52)
--- NOTE | 2018-03-21 13:21 | P.PN ---
Subjective Progress Note Date: 03/21/18 Discharge note This is a 77-year-old gentleman who was diagnosed recently with critical limb ischemia of the right leg. He was seen and evaluated by Dr. Armstrong. He underwent a peripheral angiogram that showed severe disease involving the right below the knee with critical right anterior tibial severe disease involving the right peroneal artery and critical disease involving the right posterior tibial artery. He underwent balloon angioplasty of the right peroneal and was brought in yesterday to undergo balloon angioplasty of the right posterior tibial artery which was performed by Dr. Duke. Patient was seen and examined this morning, feels well overall. Blood pressure this morning 174/84 with a heart rate in the 90s, 97% on room air. Blood cell count 6.8, hemoglobin 13.2, platelet count 168. Sodium 138, potassium 4.1, BUN 18 and creatinine 1.02. Objective - Vital Signs Vital signs: Vital Signs Temp 97.4 F L 03/21/18 08:50 Pulse 95 03/21/18 08:50 Resp 18 03/21/18 08:50 BP 174/84 03/21/18 08:50 Pulse Ox 97 03/21/18 08:50 Intake & Output 03/20/18 03/21/18 03/21/18 18:59 06:59 18:59 Intake Total 1105 120 Output Total 450 Balance 655 120 Weight 116.2 kg Intake: IV 225 Sodium Chloride 0.9% 1, 75 000 ml @ 75 mls/hr IV . [id number] [facility] Rx#:[id number] Oral 880 120 Output: Urine 450 Other: # Voids 1 - Exam PHYSICAL EXAMINATION: GENERAL: 77-year-old gentleman in no acute distress at the time of my examination HEENT: Head is atraumatic, normocephalic. Pupils equal, round. Sclera anicteric. Conjunctiva are clear. Mucous membranes of the mouth are moist. Neck is supple. There is no elevated jugular venous pressure. No carotid bruit is heard. HEART EXAMINATION: Heart S1, S2 normal. No murmur or gallop heard. CHEST EXAMINATION: Lungs are clear to auscultation and precussion. No chest wall tenderness is noted on palpation or with deep breathing. ABDOMEN: Soft, nontender. Bowel sounds are heard. No organomegaly noted. EXTREMITIES: doppler to 1+ peripheral pulses with no evidence of peripheral edema and no calf tenderness noted. Left groin soft, no evidence of any hematoma. NEUROLOGIC patient is awake, alert and oriented 3 . . - Labs CBC & Chem 7: 03/21/18 06:17 03/21/18 06:17 Labs: Abnormal Lab Results - Last 24 Hours (Table) 03/21/18 03/21/18 Range/Units 06:17 06:17 RBC 4.20 L (4.30-5.90) m/uL RDW 15.6 H (11.5-15.5) % Glucose 106 H (74-99) mg/dL Assessment and Plan Plan: Assessment and plan #1 status post successful balloon angioplasty of the right posterior tibial artery #2 critical limb ischemia #3 hypertension #4 hyperlipidemia #5 prior TIA #6 chronic persistent atrial fibrillation for which the patient had been on anticoagulation in the past, according to the patient this was discontinued because of GI bleeding. Plan Patient may be discharged home today. Follow-up appointment with Dr. Duke in the office in one week. Discharge medications include Norvasc 5 mg daily, Ecotrin 325 mg daily, Plavix 75 mg daily, losartan 50 mg, Lopressor 25 mg by mouth twice a day. DNP note has been reviewed, I agree with a documented findings and plan of care. Patient was seen and examined.
--- NOTE | 2018-03-21 15:10 | IR ---
EXAMINATION TYPE: IR fluoroscopy >1hr DATE OF EXAM: 03/20/2018 COMPARISON: NONE HISTORY: Fluoroscopy time. Fluoroscopy was provided to the referring clinician.
== END 2018-03-21 09:56 | disposition home or self-care (01) ==
LOC: CATHCVL 06:27 → 3SCARD 09:08 → CATHCVL 03-21 09:56
PROVIDERS: ATTEND Internal Medicine Interventional Cardiology
DX: I70.213 Atherosclerosis of native arteries of extremities with intermittent claudication, bilateral legs (principal); I48.2 Chronic atrial fibrillation; I99.8 Other disorder of circulatory system; E78.5 Hyperlipidemia, unspecified; I10 Essential (primary) hypertension; Z82.49 Family history of ischemic heart disease and other diseases of the circulatory system; Z79.02 Long term (current) use of antithrombotics/antiplatelets; Z79.82 Long term (current) use of aspirin; Z79.899 Other long term (current) drug therapy; Z86.73 Personal history of transient ischemic attack (TIA), and cerebral infarction without residual deficits
CPT/HCPCS: 37229; 80048 ×2; 85025 ×2; C1894 ×2; C1769 ×5; C1725 ×2; C1887; C1753; C1714; C1760; J2250; J2720; J2001; J3010; J1644; Q9966

== ENCOUNTER → 2018-04-23 | Outpatient (CLI) | payer MEDICARE ==
[2018-04-23 16:58] LABS: HCT 37.2 % (39.0-53.0); HGB 12.1 gm/dL (13.0-17.5); MCH 29.8 pg (25.0-35.0); MCHC 32.5 g/dL (31.0-37.0); MCV 91.7 fL (80.0-100.0); Mean Platelet Volume 6.7; Platelet Count 212 k/uL (150-450); RBC 4.05 m/uL (4.30-5.90); RDW 15.5 % (11.5-15.5); WBC 8.2 k/uL (3.8-10.6)
== END | disposition home or self-care (01) ==
LOC: LABWHC1 16:38
PROVIDERS: ATTEND Nurse Practitioner Adult Health
DX: I10 Essential (primary) hypertension (principal)
CPT/HCPCS: 36415; 85027

== ENCOUNTER 2018-06-05 07:18 | Day surgery (SDC) | payer MEDICARE ==
[2018-05-30 15:16] VITALS: BMI 33.9
[2018-06-05] MEDS ORDERED: ASPIRIN 325 MG TAB ONE (08:05)
[2018-06-05 08:08] VITALS: RESP 16; TEMP 97.8
[2018-06-05] MEDS ORDERED: SODIUM CHLORIDE 0.9% 1,000 ML IV ONE (08:11)
[2018-06-05 08:23] LABS: Calcium 9.3 mg/dL (8.4-10.2); Potassium 4.3 mmol/L (3.5-5.1)
[2018-06-05] MEDS ORDERED: MIDAZOLAM 2 MG/2 ML VIAL IVP ONE (08:40)
[2018-06-05 19:29] VITALS: BP 115/63; PULSE 66
== END 2018-06-05 13:30 | disposition home or self-care (01) ==
LOC: CATHCVL 07:18
PROVIDERS: ATTEND Internal Medicine Interventional Cardiology
DX: I99.8 Other disorder of circulatory system (principal); Z53.8 Procedure and treatment not carried out for other reasons
CPT/HCPCS: 80048; J2250

== ENCOUNTER 2018-06-12 20:08 | Inpatient (IN) | payer MEDICARE ==
--- NOTE | 2018-06-12 21:26 | ED ---
General Adult HPI - General Chief complaint: Nausea/Vomiting/Diarrhea Stated complaint: NAUSEA Time Seen by Provider: 06/12/18 21:17 Source: patient, RN notes reviewed, old records reviewed Mode of arrival: wheelchair Limitations: no limitations - History of Present Illness Initial comments: 78-year-old male presenting for evaluation of nausea and constipation. Patient has had issues with his bowels for the past 6 months. He is been having 1 bowel movement every 3 days. He also reports decreased urine output. Denies abdominal pain. Denies chest pain or dyspnea. Denies fever or chills. No diarrhea. No vomiting only mild nausea. No headache. - Related Data Home Medications Medication Instructions Recorded Confirmed Losartan [Cozaar] 25 mg PO DAILY 01/16/18 06/12/18 amLODIPine [Norvasc] 5 mg PO DAILY 05/30/18 06/12/18 Atorvastatin [Lipitor] 20 mg PO DAILY 06/12/18 06/12/18 Previous Rx's Medication Instructions Recorded Metoprolol Tartrate [Lopressor] 25 mg PO BID #60 tab 12/24/17 Allergies Allergy/AdvReac Type Severity Reaction Status Date / Time steroid Allergy "muscle Uncoded 06/05/18 07:39 tightness" Review of Systems ROS Statement: Those systems with pertinent positive or pertinent negative responses have been documented in the HPI. ROS Other: All systems not noted in ROS Statement are negative. 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 bulge in arch), SOB, occ blood in stool, bleeds easily, cellulitis rt leg 11/2017. History of Any Multi-Drug Resistant Organisms: None Reported Past Surgical History: Appendectomy, Orthopedic Surgery Additional Past Surgical History / Comment(s): Right ankle fluid removal, left elbow nerve problem with surgery, YAHIR 02/02/16. Surgery to amputate part second toes of jessica feet, balloon angioplasty for blockage rt leg, PICC line/later removed Past Anesthesia/Blood Transfusion Reactions: No Reported Reaction Additional Past Anesthesia/Blood Transfusion Reaction / Comment(s): no hx blood transfusion Past Psychological History: No Psychological Hx Reported Smoking Status: Never smoker - Past Family History Father Family Medical History: Myocardial Infarction (NM) Additional Family Medical History / Comment(s): Father had a NM at the age of 63 and from it. Mother Family Medical History: No Reported History Additional Family Medical History / Comment(s): Mother lived to be 82 years old. General Exam Limitations: no limitations General appearance: alert, in no apparent distress Head exam: Present: atraumatic, normocephalic Eye exam: Present: normal appearance, PERRL ENT exam: Present: normal exam Neck exam: Present: normal inspection. Absent: tenderness, meningismus Respiratory exam: Present: normal lung sounds bilaterally. Absent: respiratory distress, wheezes Cardiovascular Exam: Present: regular rate, irregular rhythm GI/Abdominal exam: Present: soft, distended. Absent: tenderness, guarding, rebound Extremities exam: Present: pedal edema, other (Chronic venous stasis) Neurological exam: Present: alert, oriented X3. Absent: motor sensory deficit Psychiatric exam: Present: normal affect, normal mood Skin exam: Present: warm, dry, intact. Absent: cyanosis, diaphoretic Course Vital Signs 06/12/18 06/12/18 06/13/18 20:17 22:22 00:05 Temperature 98.4 F Pulse Rate 99 80 89 Respiratory 22 20 20 Rate Blood Pressure 117/55 138/55 140/55 O2 Sat by Pulse 94 L 99 97 Oximetry Medical Decision Making - Medical Decision Making 78-year-old male presenting for evaluation of nausea, constipation. Patient has no abdominal tenderness, there is some abdominal distention. No rebound or guarding. Workup in the emergency department reveals white blood cell count 15.2, hemoglobin is 11.5 which is stable but down trending from previous. Creatinine 1.46 mildly elevated above baseline. Urinalysis negative. Given the elevated white blood cell count CT is obtained. This shows concern for splenic hematoma and possible renal mass measuring 4.5 cm. I did reevaluate patient, he has a nonsurgical abdomen, no tenderness to palpation. His vital signs are stable. Denies any preceding trauma. Patient will be admitted, serial hemoglobins, general surgery on consult. - Lab Data Result diagrams: 06/12/18 22:20 06/12/18 22:20 Lab Results 06/12/18 06/12/18 06/12/18 Range/Units 22:15 22:20 22:20 WBC 15.2 H (3.8-10.6) k/uL RBC 3.82 L (4.30-5.90) m/uL Hgb 11.5 L (13.0-17.5) gm/dL Hct 34.3 L (39.0-53.0) % MCV 89.6 (80.0-100.0) fL MCH 30.0 (25.0-35.0) pg MCHC 33.4 (31.0-37.0) g/dL RDW 15.2 (11.5-15.5) % Plt Count 325 (150-450) k/uL Neutrophils % 86 % Lymphocytes % 8 % Monocytes % 4 % Eosinophils % 0 % Basophils % 1 % Neutrophils # 13.0 H (1.3-7.7) k/uL Lymphocytes # 1.2 (1.0-4.8) k/uL Monocytes # 0.6 (0-1.0) k/uL Eosinophils # 0.1 (0-0.7) k/uL Basophils # 0.1 (0-0.2) k/uL Sodium 133 L (137-145) mmol/L Potassium 4.1 (3.5-5.1) mmol/L Chloride 100 (98-107) mmol/L Carbon Dioxide 23 (22-30) mmol/L Anion Gap 10 mmol/L BUN 31 H (9-20) mg/dL Creatinine 1.46 H (0.66-1.25) mg/dL Est GFR (CKD-EPI)AfAm 52 (>60 ml/min/1.73 sqM) Est GFR (CKD-EPI)NonAf 45 (>60 ml/min/1.73 sqM) Glucose 111 H (74-99) mg/dL Calcium 8.8 (8.4-10.2) mg/dL Total Bilirubin 0.9 (0.2-1.3) mg/dL AST 27 (17-59) U/L ALT 29 (21-72) U/L Alkaline Phosphatase 110 (38-126) U/L Total Protein 6.7 (6.3-8.2) g/dL Albumin 3.4 L (3.5-5.0) g/dL Lipase 185 (23-300) U/L Urine Color Ray Urine Appearance Cloudy (Clear) Urine pH 5.5 (5.0-8.0) Ur Specific Wade 1.031 (1.001-1.035) Urine Protein 2+ H (Negative) Urine Glucose (UA) Negative (Negative) Urine Ketones Negative (Negative) Urine Blood Trace H (Negative) Urine Nitrite Negative (Negative) Urine Bilirubin 1+ H (Negative) Urine Urobilinogen 4.0 (<2.0) mg/dL Ur Leukocyte Esterase Negative (Negative) Urine RBC 2 (0-5) /hpf Urine WBC 4 (0-5) /hpf Urine Mucus Many H (None) /hpf Disposition Clinical Impression: Spleen hematoma, Renal mass Disposition: ADMITTED IP TO THIS HOSP Condition: Stable Is patient prescribed a controlled substance at d/c from ED?: No Referrals: None,Stated [REFERRING] - 1-2 days Decision to Admit Reason: Admit from EC Decision Date: 06/13/18 Decision Time: 01:14
[2018-06-12 22:36] LABS: Appearance,Urine Cloudy (Clear); Bilirubin,Urine 1+ (Negative); Blood,Urine Trace (Negative); Color,Urine Orange; Glucose,Urine (UA) Negative (Negative); Ketones,Urine Negative (Negative); Leukocyte Esterase,Urine Negative (Negative); Mucus,Urine Many /hpf; Nitrite,Urine Negative (Negative); PH, Urine 5.5 (5.0-8.0); Protein,Urine 2+ (Negative); RBC,Urine 2 /hpf (0-5); Specific Gravity,Urine 1.031 (1.001-1.035); WBC,Urine 4 /hpf (0-5)
[2018-06-12 22:36] LABS: Basophils # (A) 0.1 k/uL (0-0.2); Basophils % (A) 1 %; Eosinophils # (A) 0.1 k/uL (0-0.7); Eosinophils % (A) 0 %; HCT 34.3 % (39.0-53.0); HGB 11.5 gm/dL (13.0-17.5); Lymphocytes # (A) 1.2 k/uL (1.0-4.8); Lymphocytes % (A) 8 %; MCHC 33.4 g/dL (31.0-37.0); MCV 89.6 fL (80.0-100.0); Monocytes # (A) 0.6 k/uL (0-1.0); Monocytes % (A) 4 %; Neutrophils % (A) 86 %; Platelet Count 325 k/uL (150-450); RBC 3.82 m/uL (4.30-5.90); RDW 15.2 % (11.5-15.5); WBC 15.2 k/uL (3.8-10.6)
[2018-06-12 22:44] LABS: Albumin 3.4 g/dL (3.5-5.0); Calcium 8.8 mg/dL (8.4-10.2); Potassium 4.1 mmol/L (3.5-5.1); Total Bilirubin 0.9 mg/dL (0.2-1.3); Total Protein 6.7 g/dL (6.3-8.2)
[2018-06-12] MEDS ORDERED: SODIUM CHLORIDE 0.9% 500 ML 500 ML IV ONE (23:00)
--- NOTE | 2018-06-13 00:09 | CT ---
EXAM: CT Head Without Intravenous Contrast CLINICAL HISTORY: ITS.REASON CT Reason: Pain TECHNIQUE: Axial computed tomography images of the head/brain without intravenous contrast. CTDI is 49.1 mGy and DLP is 1082 mGy-cm. This CT exam was performed using one or more of the following dose reduction techniques: automated exposure control, adjustment of the mA and/or kV according to patient size, and/or use of iterative reconstruction technique. COMPARISON: CT head on 12/30/2015 FINDINGS: Brain: No acute infarct or hemorrhage identified. No extra-axial fluid collection. No mass effect or midline shift. Stable mild areas of hypoattenuation in the supratentorial white matter likely represent chronic small vessel ischemic changes. Ventricles and sulci: Stable mild prominence of the ventricles and sulci is likely secondary to cerebral volume loss. Skull: Normal. No bony lesion or fracture. Subcutaneous tissues: Normal. Sinuses: Small polyp versus mucous retention cyst in the right maxillary sinus. Mastoid air cells: Small amount of fluid in the left mastoid air cells. Orbits: Grossly unremarkable. Other: Atherosclerotic calcifications in the intracranial vasculature. IMPRESSION: 1. No acute intracranial abnormality. 2. Stable mild chronic small vessel ischemic changes and cerebral volume loss.
--- NOTE | 2018-06-13 00:18 | CT ---
EXAM: CT Abdomen and Pelvis Without Intravenous Contrast CLINICAL HISTORY: ITS.REASON CT Reason: Pain TECHNIQUE: Axial computed tomography images of the abdomen and pelvis without intravenous contrast. CTDI is 15.7 mGy and DLP is 969.2 mGy-cm. This CT exam was performed using one or more of the following dose reduction techniques: automated exposure control, adjustment of the mA and/or kV according to patient size, and/or use of iterative reconstruction technique. COMPARISON: None FINDINGS: Evaluation of solid organs somewhat limited without IV contrast. Liver: No focal lesion. Spleen: Probable perisplenic hematoma, the largest portion medially measuring approximately 11.1 x 7.5 x 7.2 cm. Small amount of blood also seen along the lateral aspect of the spleen. Gallbladder: Underdistended gallbladder. No stones or biliary dilatation. Pancreas: Atrophy of the pancreas. No acute inflammation. No mass. Adrenal glands: No mass. Kidneys: Scarring of the left kidney with heterogeneous structures off the left kidney, measuring up to approximately 4.5 cm. Neoplasm such as RCC is not excluded. Other differential diagnosis includes renal hematoma. No hydronephrosis or obstructing stone. Nonspecific bilateral perinephric fat stranding. Bowel: Appendix is not visualized, but no CT evidence of acute appendicitis. No bowel obstruction or inflammation. Urinary bladder: Mild prominence of the bladder wall may be secondary to underdistention. Reproductive organs: Bilateral hydroceles. Muscles: No mass. Subcutaneous tissues: Bilateral fat-containing inguinal hernias versus fatty spermatic cords. Tiny fat-containing umbilical hernia. Peritoneal space: No free fluid. Lymph nodes: Nonspecific mildly prominent retroperitoneal lymph nodes. Vessels: Atherosclerotic changes of the vasculature. No aneurysm. Bones: Mild degenerative changes of the spine. No acute fracture or bony lesion. Lung bases: Mild bibasilar atelectasis. Mild cardiomegaly. No significant pericardial effusion. IMPRESSION: Examination is limited without IV contrast. 1. Probable perisplenic hematoma, the largest portion medially measuring approximately 11.1 x 7.5 x 7.2 cm. Small amount of blood also seen along the lateral aspect of the spleen. 2. Scarring of the left kidney with heterogeneous structures off the left kidney, measuring up to approximately 4.5 cm. Neoplasm such as RCC is not excluded. Other differential diagnosis includes renal hematoma. <MYCVCSECTION> Critical [employer] 06/13/18 00:18 Call Doctor Regarding Other, called Dr. Dsouza on 06/13 00:17 (-04:00)
[2018-06-13] MEDS ORDERED: HYDROmorphone 0.5 MG/0.5 ML SYRINGE IVP PRN (01:07)
[2018-06-13] MEDS ORDERED: ACETAMINOPHEN TAB 325 MG TAB PO PRN (01:07)
[2018-06-13] MEDS ORDERED: NALOXONE 0.4 MG/ML 1 ML VIAL IV PRN (01:07)
[2018-06-13] MEDS ORDERED: PANTOPRAZOLE 40 MG/10 ML VIAL IVP STA (01:09)
--- NOTE | 2018-06-13 07:21 | XR ---
EXAMINATION TYPE: XR KUB DATE OF EXAM: 06/12/2018 CLINICAL DATA: 78-year-old male with abdominal pain, PHH COMPARISON: None FINDINGS: Lung bases are clear. Heart borderline enlarged. No evidence for free intraperitoneal air. The few scattered small air-fluid levels are demonstrated. Colonic gas is present throughout extendin g distally to the rectum. Mild stool is present in IMPRESSION: 1. Scattered small air-fluid levels without bowel dilatation. Findings could represent mild ileus or enteritis. 2. No evidence of bowel obstruction or free intraperitoneal air.
[2018-06-13 07:37] LABS: Basophils # (A) 0.1 k/uL (0-0.2); Basophils % (A) 1 %; Eosinophils % (A) 0 %; HCT 32.6 % (39.0-53.0); HGB 10.6 gm/dL (13.0-17.5); Lymphocytes # (A) 1.2 k/uL (1.0-4.8); Lymphocytes % (A) 7 %; MCH 29.3 pg (25.0-35.0); MCHC 32.6 g/dL (31.0-37.0); MCV 89.9 fL (80.0-100.0); Mean Platelet Volume 7.3; Monocytes # (A) 0.5 k/uL (0-1.0); Monocytes % (A) 3 %; Neutrophils # (A) 14.3 k/uL (1.3-7.7); Neutrophils % (A) 87 %; Platelet Count 309 k/uL (150-450); RBC 3.63 m/uL (4.30-5.90); RDW 15.6 % (11.5-15.5); WBC 16.4 k/uL (3.8-10.6)
[2018-06-13 07:48] LABS: Albumin 3.4 g/dL (3.5-5.0); Calcium 8.7 mg/dL (8.4-10.2); Potassium 3.9 mmol/L (3.5-5.1); Total Bilirubin 0.9 mg/dL (0.2-1.3); Total Protein 6.6 g/dL (6.3-8.2)
[2018-06-13] MEDS: METOPROLOL TARTRATE 25 MG TAB PO SCH ×2 (09:04→20:24)
[2018-06-13] MEDS: LOSARTAN 25 MG TAB PO SCH (09:04)
[2018-06-13] MEDS: amLODIPine 5 MG TAB PO SCH (09:04)
[2018-06-13] MEDS: PANTOPRAZOLE 40 MG/10 ML VIAL IVP SCH ×2 (09:04→20:24)
[2018-06-13] MEDS ORDERED: SODIUM CHLORIDE 0.9% 1,000 ML IV ONE (12:58)
--- NOTE | 2018-06-13 13:03 | P.GSCN ---
History of Present Illness Consult date: 06/13/18 Reason for Consult: splenic hematoma Requesting physician: Derek Fowler History of present illness: CHIEF COMPLAINT: splenic hematoma HISTORY OF PRESENT ILLNESS: 78-year-old male who according to ER records presented to the hospital due to nausea and constipation. General surgery was consulted for further evaluation. Patient is a poor historian. No family is present. He states he came to the hospital because he was "feeling b jody". He denies abdominal pain. Denies nausea. Denies vomiting. Reports having a BM yesterday. Denies constipation or diarrhea. Reports passing flatus and noted increased flatus over the past couple days. Patient denies bloating or increased abdominal distention. Denies recent trauma or fall. Denies anticoagulation use. PAST MEDICAL HISTORY: See list. PAST SURGICAL HISTORY: See list. SOCIAL HISTORY: No illicit drug use. REVIEW OF SYSTEMS: CONSTITUTIONAL: Reports overall feeling "blah". Denies fever or chills. HEENT: Denies blurred vision, vision changes, or eye pain. Denies hemoptysis CARDIOVASCULAR: Denies chest pain or pressure. RESPIRATORY: No shortness of breath. GASTROINTESTINAL: Refer to HPI for pertinent findings HEMATOLOGIC: Denies bleeding disorders. GENITOURINARY: Denies any blood in urine. SKIN: Denies pruitis. Denies rash. PHYSICAL EXAM: VITAL SIGNS: Reviewed. GENERAL: Well-developed in no acute distress. HEENT: No sclera icterus. Extraocular movements grossly intact. Moist buccal mucosa. Head is atraumatic, normocephalic. ABDOMEN: Soft. Obese. Nontender. Positive bowel sounds. NEUROLOGIC: Alert and oriented. Cranial nerves II through XII grossly intact. LABORATORY DATA: Hemoglobin 10.5 on admission. Repeat 10.6. Previous hemoglobin obtained 05/20/2018 was 13.4. White count 15.2 on admission. Repeat 16.4. Creatinine 1.46. BUN 30. IMAGING: Per radiologist's dictation 1. KUB x-ray: Scattered small air-fluid levels without bowel dilation. Findings could represent mild ileus or enteritis. No evidence of bowel obstruction or free intraperitoneal air. 2. CT abdomen and pelvis without contrast: Possible perisplenic hematoma. Largest portion measuring 11.1 x 7.5 x 7.2 cm. Scarring of the left kidney with heterogeneous structures of the left kidney measuring up to 4.5 cm. Neoplasm or renal hematoma can not be excluded. ASSESSMENT: 1. Possible splenic hematoma per CT, however unlikely without history of traumatic event, possible cyst 2. Possible renal mass PLAN: 1. No surgical intervention recommended at this time 2. May benefit from IV contrast CT when creatinine improves to further evaluate spleen 2. Recommend urology consult for further evaluation of possible renal mass Nurse practitioner note has been reviewed by physician. Signing provider agrees with the documented findings, assessment, and plan of care. 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 bulge in arch), SOB, occ blood in stool, bleeds easily, cellulitis rt leg 11/2017. History of Any Multi-Drug Resistant Organisms: None Reported Past Surgical History: Appendectomy, Orthopedic Surgery Additional Past Surgical History / Comment(s): Right ankle fluid removal, left e lbow nerve problem with surgery, [facility] 02/02/16. Surgery to amputate part second toes of jessica feet, balloon angioplasty for blockage rt leg, PICC line/later removed Past Anesthesia/Blood Transfusion Reactions: No Reported Reaction Additional Past Anesthesia/Blood Transfusion Reaction / Comm: no hx blood transfusion Past Psychological History: No Psychological Hx Reported Additional Psychological History / Comment(s): . Smoking Status: Never smoker Past Alcohol Use History: Occasional Additional Past Alcohol Use History / Comment(s): . Past Drug Use History: None Reported - Past Family History Father Family Medical History: Myocardial Infarction (NH) Additional Family Medical History / Comment(s): Father had a NH at the age of 63 and from it. Mother Family Medical History: No Reported History Additional Family Medical History / Comment(s): Mother lived to be 82 years old. Medications and Allergies Home Medications Medication Instructions Recorded Confirmed Type Metoprolol Tartrate [Lopressor] 25 mg PO BID #60 tab 12/24/17 06/12/18 Rx Losartan [Cozaar] 25 mg PO DAILY 01/16/18 06/12/18 History amLODIPine [Norvasc] 5 mg PO DAILY 05/30/18 06/12/18 History Atorvastatin [Lipitor] 20 mg PO DAILY 06/12/18 06/12/18 History Allergies Allergy/AdvReac Type Severity Reaction Status Date / Time steroid Allergy "muscle Uncoded 06/05/18 07:39 tightness" Surgical - Exam Vital Signs Temp Pulse Resp BP Pulse Ox 98.4 F 99 22 117/55 94 L 06/12/18 20:17 06/12/18 20:17 06/12/18 20:17 06/12/18 20:17 06/12/18 20:17 Results - Labs 06/13/18 07:18 06/13/18 07:18 Abnormal Lab Results - Last 24 Hours (Table) 06/12/18 06/12/18 06/12/18 Range/Units 22:15 22:20 22:20 WBC 15.2 H (3.8-10.6) k/uL RBC 3.82 L (4.30-5.90) m/uL Hgb 11.5 L (13.0-17.5) gm/dL Hct 34.3 L (39.0-53.0) % RDW (11.5-15.5) % Neutrophils # 13.0 H (1.3-7.7) k/uL Sodium 133 L (137-145) mmol/L BUN 31 H (9-20) mg/dL Creatinine 1.46 H (0.66-1.25) mg/dL Glucose 111 H (74-99) mg/dL Albumin 3.4 L (3.5-5.0) g/dL Urine Protein 2+ H (Negative) Urine Blood Trace H (Negative) Urine Bilirubin 1+ H (Negative) Urine Mucus Many H (None) /hpf 06/13/18 06/13/18 Range/Units 07:18 07:18 WBC 16.4 H (3.8-10.6) k/uL RBC 3.63 L (4.30-5.90) m/uL Hgb 10.6 L (13.0-17.5) gm/dL Hct 32.6 L (39.0-53.0) % RDW 15.6 H (11.5-15.5) % Neutrophils # 14.3 H (1.3-7.7) k/uL Sodium 133 L (137-145) mmol/L BUN 30 H (9-20) mg/dL Creatinine 1.46 H (0.66-1.25) mg/dL Glucose 105 H (74-99) mg/dL Albumin 3.4 L (3.5-5.0) g/dL Urine Protein (Negative) Urine Blood (Negative) Urine Bilirubin (Negative) Urine Mucus (None) /hpf Diabetes panel 06/12/18 06/13/18 Range/Units 22:20 07:18 Sodium 133 L 133 L (137-145) mmol/L Potassium 4.1 3.9 (3.5-5.1) mmol/L Chloride 100 101 (98-107) mmol/L Carbon Dioxide 23 22 (22-30) mmol/L BUN 31 H 30 H (9-20) mg/dL Creatinine 1.46 H 1.46 H (0.66-1.25) mg/dL Glucose 111 H 105 H (74-99) mg/dL Calcium 8.8 8.7 (8.4-10.2) mg/dL AST 27 25 (17-59) U/L ALT 29 24 (21-72) U/L Alkaline Phosphatase 110 101 (38-126) U/L Total Protein 6.7 6.6 (6.3-8.2) g/dL Albumin 3.4 L 3.4 L (3.5-5.0) g/dL Calcium panel 06/12/18 06/13/18 Range/Units 22:20 07:18 Calcium 8.8 8.7 (8.4-10.2) mg/dL Albumin 3.4 L 3.4 L (3.5-5.0) g/dL Pituitary panel 06/12/18 06/13/18 Range/Units 22:20 07:18 Sodium 133 L 133 L (137-145) mmol/L Potassium 4.1 3.9 (3.5-5.1) mmol/L Chloride 100 101 (98-107) mmol/L Carbon Dioxide 23 22 (22-30) mmol/L BUN 31 H 30 H (9-20) mg/dL Creatinine 1.46 H 1.46 H (0.66-1.25) mg/dL Glucose 111 H 105 H (74-99) mg/dL Calcium 8.8 8.7 (8.4-10.2) mg/dL Adrenal panel 06/12/18 06/13/18 Range/Units 22:20 07:18 Sodium 133 L 133 L (137-145) mmol/L Potassium 4.1 3.9 (3.5-5.1) mmol/L Chloride 100 101 (98-107) mmol/L Carbon Dioxide 23 22 (22-30) mmol/L BUN 31 H 30 H (9-20) mg/dL Creatinine 1.46 H 1.46 H (0.66-1.25) mg/dL Glucose 111 H 105 H (74-99) mg/dL Calcium 8.8 8.7 (8.4-10.2) mg/dL Total Bilirubin 0.9 0.9 (0.2-1.3) mg/dL AST 27 25 (17-59) U/L ALT 29 24 (21-72) U/L Alkaline Phosphatase 110 101 (38-126) U/L Total Protein 6.7 6.6 (6.3-8.2) g/dL Albumin 3.4 L 3.4 L (3.5-5.0) g/dL Assessment and Plan (1) Renal mass Current Visit: Yes Status: Acute Code(s): N28.89 - OTHER SPECIFIED DISORDERS OF KIDNEY AND URETER SNOMED Code(s): 823417389
--- NOTE | 2018-06-13 14:23 | P.HPIM ---
History of Present Illness Chief Complaint: Nausea and constipation Very pleasant 78-year-old gentleman comes into the ER for above-mentioned comp laints. Patient says that he's been having issues with bowel movements for the past few months and is having one bowel movement every 3 days. He also started having nausea and says that his belly doesn't feel right. He denies any abdominal pain though. He denies any chest pain or racing heart, no cough no shortness of breath, no vomiting, no tingling numbness of his extremities, no itch no rash. He does not complaining any fever or chills, no urinary problems. ER course-patient's vitals were stable. Labwork was done which showed WBC 15.2 hemoglobin 11.5 platelets 325 sodium 133 potassium 4.1 bun 31 creatinine 1.[address] of the abdomen pelvis was done which showed possible perisplenic hematoma measuring 11.1 x 7.5 x 7.2 cm. Small amount of blood also seen along the lateral aspect of the spleen. Scarring of the left kidney with heterogeneous structure of the left kidney measuring up to 4.5 cm seen. Differential includes hematoma versus renal cell carcinoma. Patient was admitted to the hospitalist service with general surgery consultation. 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 bulge in arch), SOB, occ blood in stool, bleeds easily, cellulitis rt leg 11/2017. History of Any Multi-Drug Resistant Organisms: None Reported Past Surgical History: Appendectomy, Orthopedic Surgery Additional Past Surgical History / Comment(s): Right ankle fluid removal, left elbow nerve problem with surgery, YAHIR 02/02/16. Surgery to amputate part second toes of jessica feet, balloon angioplasty for blockage rt leg, PICC line/later removed Past Anesthesia/Blood Transfusion Reactions: No Reported Reaction Additional Past Anesthesia/Blood Transfusion Reaction / Comment(s): no hx blood transfusion Past Psychological History: No Psychological Hx Reported Additional Psychological History / Comment(s): . Smoking Status: Never smoker Past Alcohol Use History: Occasional Additional Past Alcohol Use History / Comment(s): . Past Drug Use History: None Reported - Past Family History Father Family Medical History: Myocardial Infarction ([place]) Additional Family Medical History / Comment(s): Father had a [place] at the age of 63 and from it. Mother Family Medical History: No Reported History Additional Family Medical History / Comment(s): Mother lived to be 82 years old. Medications and Allergies Home Medications Medication Instructions Recorded Confirmed Type Metoprolol Tartrate [Lopressor] 25 mg PO BID #60 tab 12/24/17 06/12/18 Rx Losartan [Cozaar] 25 mg PO DAILY 01/16/18 06/12/18 History amLODIPine [Norvasc] 5 mg PO DAILY 05/30/18 06/12/18 History Atorvastatin [Lipitor] 20 mg PO DAILY 06/12/18 06/12/18 History Allergies Allergy/AdvReac Type Severity Reaction Status Date / Time steroid Allergy "muscle Uncoded 06/05/18 07:39 tightness" Physical Exam Vitals: Vital Signs Temp Pulse Pulse Resp BP BP Pulse Ox 06/13/18 07:00 99.4 F 91 16 131/60 94 L 06/13/18 05:12 18 06/13/18 04:10 98.1 F 88 18 146/67 95 06/13/18 01:57 93 16 162/59 100 06/13/18 00:05 89 20 140/55 97 06/12/18 22:22 80 20 138/55 99 06/12/18 20:17 98.4 F 99 22 117/55 94 L Intake and Output 06/12/18 06/13/18 06/13/18 22:59 06:59 14:59 Intake Total 100 Output Total 100 126 Balance 0 -126 Intake: Oral 100 Output: Urine 100 100 Post Void Residual 26 Other: Voiding Method Urinal Urinal # Voids 0 Weight 113.398 kg On exam, alert and oriented x3. HEENT: Conjunctivae normal. eyes normal. NECK: No JVD. No thyroid enlargement. No LNs CARDIOVASCULAR: S1, S2 muffled. No murmur RESPIRATION: Breath sounds diminished in the bases. No rhonchi or crackles. No bronchial breathing. ABDOMEN: Soft, nontender . No guarding. no masses palpable. No ascites, No hepatosplenomegaly.Bowel sounds heard. LEGS: No edema. no swelling NERVOUS SYSTEM: Cranial N 2-12 grossly normal. Moves all 4 limbs. No focal deficits. No sensory deficit. No signs of cerebellar dysfucntion. Skin: no ulcer no rash Results CBC & Chem 7: 06/13/18 07:18 06/13/18 07:18 Labs: Abnormal Lab Results - Last 24 Hours (Table) 06/12/18 06/12/18 06/12/18 Range/Units 22:15 22:20 22:20 WBC 15.2 H (3.8-10.6) k/uL RBC 3.82 L (4.30-5.90) m/uL Hgb 11.5 L (13.0-17.5) gm/dL Hct 34.3 L (39.0-53.0) % RDW (11.5-15.5) % Neutrophils # 13.0 H (1.3-7.7) k/uL Sodium 133 L (137-145) mmol/L BUN 31 H (9-20) mg/dL Creatinine 1.46 H (0.66-1.25) mg/dL Glucose 111 H (74-99) mg/dL Albumin 3.4 L (3.5-5.0) g/dL Urine Protein 2+ H (Negative) Urine Blood Trace H (Negative) Urine Bilirubin 1+ H (Negative) Urine Mucus Many H (None) /hpf 06/13/18 06/13/18 Range/Units 07:18 07:18 WBC 16.4 H (3.8-10.6) k/uL RBC 3.63 L (4.30-5.90) m/uL Hgb 10.6 L (13.0-17.5) gm/dL Hct 32.6 L (39.0-53.0) % RDW 15.6 H (11.5-15.5) % Neutrophils # 14.3 H (1.3-7.7) k/uL Sodium 133 L (137-145) mmol/L BUN 30 H (9-20) mg/dL Creatinine 1.46 H (0.66-1.25) mg/dL Glucose 105 H (74-99) mg/dL Albumin 3.4 L (3.5-5.0) g/dL Urine Protein (Negative) Urine Blood (Negative) Urine Bilirubin (Negative) Urine Mucus (None) /hpf Thrombosis Risk Factor Assmnt - Choose All That Apply Each Factor Represents 1 point: Obesity (BMI >25), Swollen legs (current) Other Risk Factors: Yes Each Risk Factor Represents 3 Points: Age 75 years or older Other congenital or acquired thrombophilia - If yes, enter type in comment: No Thrombosis Risk Factor Assessment Total Risk Factor Score: 5 Thrombosis Risk Factor Assessment Level: High Risk Assessment and Plan Assessment: - Parasplenic hematoma - Possible renal hematoma versus neoplasm - Leukocytosis - Anemia - History of A. fib. Patient refused to be on anticoagulation - Hypertension - Hyperlipidemia - History of previous episodes of GI bleed Plan - We'll admit the patient to [facility] with telemetry - Surgery well with the patient no surgical interventions as of now. Recommended urology to see the patient - We'll consult hematology to rule out any occult process causing bleeding. Patient is having splenic and renal hematoma. He had previous issues with bleeding before. My concern is if he is having any leukemia issues or any cancer known on. His WBCs are elevated and his hemoglobin is slowly returning down. The patient does not of infection right now. I will order for chest x- ray to make sure we are not dealing with any infections. UA was done which did not show any signs of infection. Urine looks concentrated though.Patient does not have any belly pain as of now. I'll also order for her calcitonin and CRP. I will order for peripheral smear as well. - We'll start him on gentle fluid hydration and recheck his creatinine - We will resume the patient's home medication - DVT and GI prophylaxis - We'll order for lab work in the morning - Patient is full code - Patient is an observation right now can be changed to inpatient if need be. Time with Patient: Greater than 30
[2018-06-13] MEDS: SODIUM CHLORIDE 0.9% 1,000 ML IV SCH (14:34)
--- NOTE | 2018-06-13 15:37 | P.PN ---
Progress Note - Text Progress Note Date: 06/13/18 Please see full consultation note. Patient denies any abdominal pain. No reports of trauma to the left flank or abdominal wall. CT imaging personally reviewed demonstrating neoplasm along with the kidney. Recommend urology consultation. Splenic lesion likely cyst. CT is a noncontrast study. Recommend repeat computed tomography scan with IV contrast for further delineation of splenic including renal pathology once creatinine improves. Otherwise no surgical intervention. I have ordered IV fluid bolus for renal insufficiency secondary to dehydration.
[2018-06-13 17:29] LABS: Reticulocyte % 0.9 % (0.5-2.0)
--- NOTE | 2018-06-13 18:15 | P.CONS ---
History of Present Illness - Reason for Consult Consult date: 06/13/18 Anemia, Splenic Hematoma ?renal malignancy Requesting physician: Anthony Moon - Chief Complaint Constipation nausea - History of Present Illness Dairan is a 78 year old male patient, poor historian and no family at bedside during evaluation. He initially presented because he was not feeling well. Abdominal pain, constipation, and fatigue. He also admits to shortness of br eath. On initial presentation a CT Abdomen and Pelvis revealed a possible perisplenic hematoma 11.1x7.5x7.2cm, as well as, scarring heterogenous abnormality left kidney in which differential concern for underlying renal malignancy was made mention. He has a known history of severe peripheral vascula r disease and in February underwent angiography of right ischemic leg by cardiology. Today his hemoglobin is 10.6 and WBC 16.4. Review of Systems A 14 point review of systems was assessed and completed and all negative except HPI, patient is a poor historian. 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 bulge in arch), SOB, occ blood in stool, bleeds easily, cellulitis rt leg 11/2017. History of Any Multi-Drug Resistant Organisms: None Reported Past Surgical History: Appendectomy, Orthopedic Surgery Additional Past Surgical History / Comment(s): Right ankle fluid removal, left elbow nerve problem with surgery, Y[facility]IR 02/02/16. Surgery to amputate part second toes of jessica feet, balloon angioplasty for blockage rt leg, PICC line/later removed Past Anesthesia/Blood Transfusion Reactions: No Reported Reaction Additional Past Anesthesia/Blood Transfusion Reaction / Comm: no hx blood transfusion Past Psychological History: No Psychological Hx Reported Additional Psychological History / Comment(s): . Smoking Status: Never smoker Past Alcohol Use History: Occasional Additional Past Alcohol Use History / Comment(s): . Past Drug Use History: None Reported - Past Family History Father Family Medical History: Myocardial Infarction ([place]) Additional Family Medical History / Comment(s): Father had a [place] at the age of 63 and from it. Mother Family Medical History: No Reported History Additional Family Medical History / Comment(s): Mother lived to be 82 years old. Medications and Allergies Home Medications Medication Instructions Recorded Confirmed Type Metoprolol Tartrate [Lopressor] 25 mg PO BID #60 tab 12/24/17 06/12/18 Rx Losartan [Cozaar] 25 mg PO DAILY 01/16/18 06/12/18 History amLODIPine [Norvasc] 5 mg PO DAILY 05/30/18 06/12/18 History Atorvastatin [Lipitor] 20 mg PO DAILY 06/12/18 06/12/18 History Allergies Allergy/AdvReac Type Severity Reaction Status Date / Time steroid Allergy "muscle Uncoded 06/05/18 07:39 tightness" Physical Exam Vitals: Vital Signs Temp Pulse Pulse Resp BP BP Pulse Ox 06/13/18 15:00 98.9 F 83 16 114/61 95 06/13/18 07:00 99.4 F 91 16 131/60 94 L 06/13/18 05:12 18 06/13/18 04:10 98.1 F 88 18 146/67 95 06/13/18 01:57 93 16 162/59 100 06/13/18 00:05 89 20 140/55 97 06/12/18 22:22 80 20 138/55 99 06/12/18 20:17 98.4 F 99 22 117/55 94 L Intake and Output 06/13/18 06/13/18 06/13/18 06:59 14:59 22:59 Intake Total 100 Output Total 100 126 Balance 0 -126 Intake: Oral 100 Output: Urine 100 100 Post Void Residual 26 Other: Voiding Method Urinal Urinal Urinal # Voids 0 3 Weight 109.951 kg Gen: Poor Historian alert, in no apparent distress Head NCNT NeckSupple, no palpable adenopathy Lungs No increased effort, bibasilar diminished CV: regular rate, irregular rhythm GI: soft, distended. no tender Extremitie: pedal edema, evidence of chronic venous insufficiency Neurological: No sensory or motor deficits, Alert SkinDiscolorization extremities from chronic venous changes, no rashes no wounds Results CBC & Chem 7: 06/13/18 07:18 06/13/18 07:18 Labs: Abnormal Lab Results - Last 24 Hours (Table) 06/12/18 06/12/18 06/12/18 Range/Units 22:15 22:20 22:20 WBC 15.2 H (3.8-10.6) k/uL RBC 3.82 L (4.30-5.90) m/uL Hgb 11.5 L (13.0-17.5) gm/dL Hct 34.3 L (39.0-53.0) % RDW (11.5-15.5) % Neutrophils # 13.0 H (1.3-7.7) k/uL Sodium 133 L (137-145) mmol/L BUN 31 H (9-20) mg/dL Creatinine 1.46 H (0.66-1.25) mg/dL Glucose 111 H (74-99) mg/dL Albumin 3.4 L (3.5-5.0) g/dL Urine Protein 2+ H (Negative) Urine Blood Trace H (Negative) Urine Bilirubin 1+ H (Negative) Urine Mucus Many H (None) /hpf 06/13/18 06/13/18 Range/Units 07:18 07:18 WBC 16.4 H (3.8-10.6) k/uL RBC 3.63 L (4.30-5.90) m/uL Hgb 10.6 L (13.0-17.5) gm/dL Hct 32.6 L (39.0-53.0) % RDW 15.6 H (11.5-15.5) % Neutrophils # 14.3 H (1.3-7.7) k/uL Sodium 133 L (137-145) mmol/L BUN 30 H (9-20) mg/dL Creatinine 1.46 H (0.66-1.25) mg/dL Glucose 105 H (74-99) mg/dL Albumin 3.4 L (3.5-5.0) g/dL Urine Protein (Negative) Urine Blood (Negative) Urine Bilirubin (Negative) Urine Mucus (None) /hpf CT scan - abdomen: report reviewed CT scan - pelvis: report reviewed Assessment and Plan Plan: Assessment and Recs: 1. Normocytic Anemia: Work-up in progress - Blood loss versus Renal disease versus chronic inflammation - Multifactorial - Serial CBC and transfusion support less than 7 - Await Iron Studies and anemia work-up - Retic less than appropriate 2. Heterogenous Abnormal Scarring of left Kidney: - A contrasted exam will be better to assess once renal function improves, if not ultrasound of kidneys is resonable - Uronology is following 3. ?Perisplic Hematoma identified on CT: - He does have known history of severe vascular perfusion, I do not have any previous abdominal imaging to assess for secondary splenomegaly which could potentially result from this causing a ruptured vessel, versus spleenic cyst. Contrasted imaging would be beneficial - Surgery is following - Coags, LDH 4. Leukocytosis: - Unknown etiology - Infectious work-up in progress - No recent steroid use. Thank you for allowing us to participate in the care of this patient will follow with you.
--- NOTE | 2018-06-13 19:22 | P.GSCN ---
History of Present Illness Consult date: 06/13/18 Reason for Consult: Left renal mass Requesting physician: Esteban Pablo History of present illness: The patient is a 78-year-old white male well known to Dr. Madera. He was found in March 2017 to have an elevated PSA level of 17.0. 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 The right-sided biopsies were negative. The bone scan showed no evidence of osseous metastases. The patient was advised to consider radiation therapy, but declined treatment. He is being followed by Dr. Madera and was last seen in the office on 04/29/2018. His PSA level at that time was 14.1, and he was felt to be urologically stable. He now presents with nausea and constipation, and a computed tomography scan suggests the presence of a left renal mass. 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 bulge in arch), SOB, occ blood in stool, bleeds easily, cellulitis rt leg 11/2017. History of Any Multi-Drug Resistant Organisms: None Reported Past Surgical History: Appendectomy, Orthopedic Surgery Additional Past Surgical History / Comment(s): Right ankle fluid removal, left elbow nerve problem with surgery, YAHIR 02/02/16. Surgery to amputate part second toes of jessica feet, balloon angioplasty for blockage rt leg, PICC line/later removed Past Anesthesia/Blood Transfusion Reactions: No Reported Reaction Additional Past Anesthesia/Blood Transfusion Reaction / Comm: no hx blood transfusion Past Psychological History: No Psychological Hx Reported Additional Psychological History / Comment(s): . Smoking Status: Never smoker Past Alcohol Use History: Occasional Additional Past Alcohol Use History / Comment(s): . Past Drug Use History: None Reported - Past Family History Father Family Medical History: Myocardial Infarction ([place]) Additional Family Medical History / Comment(s): Father had a [place] at the age of 63 and from it. Mother Family Medical History: No Reported History Additional Family Medical History / Comment(s): Mother lived to be 82 years old. Medications and Allergies Home Medications Medication Instructions Recorded Confirmed Type Metoprolol Tartrate [Lopressor] 25 mg PO BID #60 tab 12/24/17 06/12/18 Rx Losartan [Cozaar] 25 mg PO DAILY 01/16/18 06/12/18 History amLODIPine [Norvasc] 5 mg PO DAILY 05/30/18 06/12/18 History Atorvastatin [Lipitor] 20 mg PO DAILY 06/12/18 06/12/18 History Allergies Allergy/AdvReac Type Severity Reaction Status Date / Time steroid Allergy "muscle Uncoded 06/05/18 07:39 tightness" Surgical - Exam Vital Signs Temp Pulse Resp BP Pulse Ox 98.4 F 99 22 117/55 94 L 06/12/18 20:17 06/12/18 20:17 06/12/18 20:17 06/12/18 20:17 06/12/18 20:17 - General well developed, well nourished, no distress - Respiratory normal respiratory effort - Abdomen Abdomen: soft, non tender, no guarding, no rigid, no rebound - Psychiatric oriented to time, oriented to person, oriented to place, speech is normal, memory intact Results - Labs 06/13/18 07:18 06/13/18 07:18 Abnormal Lab Results - Last 24 Hours (Table) 06/12/18 06/12/18 06/12/18 Range/Units 22:15 22:20 22:20 WBC 15.2 H (3.8-10.6) k/uL RBC 3.82 L (4.30-5.90) m/uL Hgb 11.5 L (13.0-17.5) gm/dL Hct 34.3 L (39.0-53.0) % RDW (11.5-15.5) % Neutrophils # 13.0 H (1.3-7.7) k/uL Sodium 133 L (137-145) mmol/L BUN 31 H (9-20) mg/dL Creatinine 1.46 H (0.66-1.25) mg/dL Glucose 111 H (74-99) mg/dL Albumin 3.4 L (3.5-5.0) g/dL Urine Protein 2+ H (Negative) Urine Blood Trace H (Negative) Urine Bilirubin 1+ H (Negative) Urine Mucus Many H (None) /hpf 06/13/18 06/13/18 Range/Units 07:18 07:18 WBC 16.4 H (3.8-10.6) k/uL RBC 3.63 L (4.30-5.90) m/uL Hgb 10.6 L (13.0-17.5) gm/dL Hct 32.6 L (39.0-53.0) % RDW 15.6 H (11.5-15.5) % Neutrophils # 14.3 H (1.3-7.7) k/uL Sodium 133 L (137-145) mmol/L BUN 30 H (9-20) mg/dL Creatinine 1.46 H (0.66-1.25) mg/dL Glucose 105 H (74-99) mg/dL Albumin 3.4 L (3.5-5.0) g/dL Urine Protein (Negative) Urine Blood (Negative) Urine Bilirubin (Negative) Urine Mucus (None) /hpf Diabetes panel 06/12/18 06/13/18 Range/Units 22:20 07:18 Sodium 133 L 133 L (137-145) mmol/L Potassium 4.1 3.9 (3.5-5.1) mmol/L Chloride 100 101 (98-107) mmol/L Carbon Dioxide 23 22 (22-30) mmol/L BUN 31 H 30 H (9-20) mg/dL Creatinine 1.46 H 1.46 H (0.66-1.25) mg/dL Glucose 111 H 105 H (74-99) mg/dL Calcium 8.8 8.7 (8.4-10.2) mg/dL AST 27 25 (17-59) U/L ALT 29 24 (21-72) U/L Alkaline Phosphatase 110 101 (38-126) U/L Total Protein 6.7 6.6 (6.3-8.2) g/dL Albumin 3.4 L 3.4 L (3.5-5.0) g/dL Calcium panel 06/12/18 06/13/18 Range/Units 22:20 07:18 Calcium 8.8 8.7 (8.4-10.2) mg/dL Albumin 3.4 L 3.4 L (3.5-5.0) g/dL Pituitary panel 06/12/18 06/13/18 Range/Units 22:20 07:18 Sodium 133 L 133 L (137-145) mmol/L Potassium 4.1 3.9 (3.5-5.1) mmol/L Chloride 100 101 (98-107) mmol/L Carbon Dioxide 23 22 (22-30) mmol/L BUN 31 H 30 H (9-20) mg/dL Creatinine 1.46 H 1.46 H (0.66-1.25) mg/dL Glucose 111 H 105 H (74-99) mg/dL Calcium 8.8 8.7 (8.4-10.2) mg/dL Adrenal panel 06/12/18 06/13/18 Range/Units 22:20 07:18 Sodium 133 L 133 L (137-145) mmol/L Potassium 4.1 3.9 (3.5-5.1) mmol/L Chloride 100 101 (98-107) mmol/L Carbon Dioxide 23 22 (22-30) mmol/L BUN 31 H 30 H (9-20) mg/dL Creatinine 1.46 H 1.46 H (0.66-1.25) mg/dL Glucose 111 H 105 H (74-99) mg/dL Calcium 8.8 8.7 (8.4-10.2) mg/dL Total Bilirubin 0.9 0.9 (0.2-1.3) mg/dL AST 27 25 (17-59) U/L ALT 29 24 (21-72) U/L Alkaline Phosphatase 110 101 (38-126) U/L Total Protein 6.7 6.6 (6.3-8.2) g/dL Albumin 3.4 L 3.4 L (3.5-5.0) g/dL - Imaging CT scan - abdomen: report reviewed, image reviewed Assessment and Plan (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 There is concern of a possible left renal mass. Unfortunately, because of the patient's renal insufficiency, a computed tomography scan with contrast cannot be obtained. I have ordered a renal ultrasound for further evaluation of the left renal lesion. Time with Patient: Greater than 30
--- NOTE | 2018-06-13 20:43 | US ---
EXAMINATION TYPE: US kidneys/renal and bladder DATE OF EXAM: 06/13/2018 COMPARISON: NONE CLINICAL HISTORY: Left renal mass. Left renal mass on ct scan. EXAM MEASUREMENTS: Right Kidney: 11.1 x 7.1 x 4.7 cm Left Kidney: 12.6 x 5.8 x 5.2 cm Right Kidney: No hydronephrosis or masses seen Left Kidney: Lobulated cortex with solid lesion visualized upper pole measuring 5.6 x 3.1 x 4.9cm wit h vascularity. Bladder: anechoic Bilateral Jets seen: Left jet seen There is no evidence for hydronephrosis at this point in time. No nephrolithiasis is seen. No kenzie s are identified. The urinary bladder is anechoic. Left ureteral jet is seen. IMPRESSION: There is hypoechoic solid mass involving upper pole left kidney not changed compared to CT scan yeste rday and consistent with a tumor. No renal obstruction. Normal right kidney.
[2018-06-13 22:21] LABS: INR 1.1 (<1.2); Partial Thromboplastin Time 25.7 sec (22.0-30.0); Prothrombin Time 11.5 sec (9.0-12.0)
[2018-06-13 23:24] LABS: Iron Saturation 2.04 (15.00-50.00)
[2018-06-14] MEDS: SODIUM CHLORIDE 0.9% 1,000 ML IV SCH ×3 (02:50→20:28)
[2018-06-14] MEDS: PANTOPRAZOLE 40 MG/10 ML VIAL IVP SCH ×2 (07:50→20:27)
[2018-06-14] MEDS: LOSARTAN 25 MG TAB PO SCH (07:50)
[2018-06-14] MEDS: amLODIPine 5 MG TAB PO SCH (07:50)
[2018-06-14] MEDS: METOPROLOL TARTRATE 25 MG TAB PO SCH ×2 (07:50→20:28)
--- NOTE | 2018-06-14 09:28 | XR ---
EXAMINATION TYPE: XR chest 1V portable DATE OF EXAM: 06/14/2018 COMPARISON: CT abdomen pelvis 06/12/2018 HISTORY: Leukocytosis TECHNIQUE: frontal view of the chest is obtained on 2 images. FINDINGS: There is no pleural effusion or pneumothorax seen. Patchy basilar density is present bilat erally. The cardiac silhouette size is enlarged. Interstitium and central vascularity is prominent. T he osseous structures are intact. IMPRESSION: Cardiomegaly, probable basilar atelectasis. Prominence of interstitium and central vascu larity could be due to pulmonary venous hypertension and interstitial edema versus volume overload.
[2018-06-14 09:36] LABS: HCT 36.7 % (39.0-53.0); HGB 11.8 gm/dL (13.0-17.5); Hypochromasia Slight; MCH 29.8 pg (25.0-35.0); MCV 93.1 fL (80.0-100.0); Mean Platelet Volume 7.1; Platelet Count 291 k/uL (150-450); RBC 3.94 m/uL (4.30-5.90); RDW 15.4 % (11.5-15.5); WBC 16.5 k/uL (3.8-10.6)
--- NOTE | 2018-06-14 09:39 | P.PN ---
<Mandy Eubanks Faith - Last Filed: 06/14/18 09:37> Subjective Progress Note Date: 06/14/18 CHIEF COMPLAINT: splenic hematoma HISTORY OF PRESENT ILLNESS: Patient examined at the bedside. Patient without concerns or complaints this morning. He denies abdominal pain. Denies nausea or vomiting. Tolerating regular diet. Urology is following for renal mass. PHYSICAL EXAM: VITAL SIGNS: Reviewed. GENERAL: Well-developed in no acute distress. HEENT: No sclera icterus. Extraocular movements grossly intact. Moist buccal mucosa. Head is atraumatic, normocephalic. ABDOMEN: Soft. Obese. Nontender. Positive bowel sounds. NEUROLOGIC: Alert and oriented. Cranial nerves II through XII grossly intact. ASSESSMENT: 1. Possible splenic hematoma per CT, however unlikely without history of traumatic event, possible cyst 2. Renal mass PLAN: 1. No surgical intervention recommended at this time 2. Await repeat labs this morning. May benefit from IV contrast CT when creatinine improves to further evaluate spleen 2. Urology on consult secondary to renal mass. Await further recommendations Nurse practitioner note has been reviewed by physician. Signing provider agrees with the documented findings, assessment, and plan of care. Objective - Vital Signs Vital signs: Vital Signs Temp 98.7 F 06/14/18 07:45 Pulse 97 06/14/18 07:45 Resp 15 06/14/18 07:45 BP 180/66 06/14/18 07:45 Pulse Ox 90 L 06/14/18 07:45 Intake & Output 06/13/18 06/14/18 06/14/18 18:59 06:59 18:59 Intake Total 650 Output Total 126 400 Balance -126 250 Weight 109.951 kg Intake: Intake, IV Titration 350 Amount Sodium Chloride 0.9% 1, 350 000 ml @ 100 mls/hr IV . Q10H KARL Rx#:[id number] Oral 300 Output: Urine 100 400 Post Void Residual 26 Other: Voiding Method Urinal Urinal Urinal # Voids 3 3 - Labs CBC & Chem 7: 06/13/18 07:18 06/13/18 07:18 Labs: Abnormal Lab Results - Last 24 Hours (Table) 06/13/18 06/13/18 06/14/18 Range/Units 07:30 21:14 09:00 Fibrinogen 656 H (200-500) mg/dL Iron 5 L (65-175) ug/dL Iron Saturation 2.04 L (15.00-50.00) C-Reactive Protein 89.3 H (<10.0) mg/L Assessment and Plan (1) Renal mass Current Visit: Yes Status: Acute Code(s): N28.89 - OTHER SPECIFIED DISORDERS OF KIDNEY AND URETER SNOMED Code(s): 168325686 <Hari Velasquez - Last Filed: 06/14/18 14:58> Subjective As above. Patient denies abdominal pain. Hemoglobin is stable. Creatinine remains elevated. Agree with urology plans for outpatient follow-up CAT scan with contrast. We'll sign off. Avoid strenuous activities. Please call if nee ded. Objective - Vital Signs Vital signs: Vital Signs Temp 98.9 F 06/14/18 14:54 Pulse 84 06/14/18 14:54 Resp 15 06/14/18 14:54 BP 120/63 06/14/18 14:54 Pulse Ox 95 06/14/18 14:54 Intake & Output 06/13/18 06/14/18 06/14/18 18:59 06:59 18:59 Intake Total 650 Output Total 126 400 Balance -126 250 Weight 109.951 kg Intake: Intake, IV Titration 350 Amount Sodium Chloride 0.9% 1, 350 000 ml @ 100 mls/hr IV . Q10H KARL Rx#:[id number] Oral 300 Output: Urine 100 400 Post Void Residual 26 Other: Voiding Method Urinal Urinal Urinal # Voids 3 3 3 - Labs CBC & Chem 7: 06/14/18 08:40 06/14/18 08:40 Labs: Abnormal Lab Results - Last 24 Hours (Table) 06/13/18 06/13/18 06/13/18 Range/Units 07:18 07:30 21:14 WBC 16.4 H (3.8-10.6) k/uL RBC 3.63 L (4.30-5.90) m/uL Hgb 10.6 L (13.0-17.5) gm/dL Hct 32.6 L (39.0-53.0) % RDW 15.6 H (11.5-15.5) % Neutrophils # 14.3 H (1.3-7.7) k/uL Fibrinogen 656 H (200-500) mg/dL Sodium (137-145) mmol/L BUN (9-20) mg/dL Creatinine (0.66-1.25) mg/dL Glucose (74-99) mg/dL Iron 5 L (65-175) ug/dL Iron Saturation 2.04 L (15.00-50.00) C-Reactive Protein (<10.0) mg/L 06/14/18 06/14/18 06/14/18 Range/Units 08:40 08:40 09:00 WBC 16.5 H (3.8-10.6) k/uL RBC 3.94 L (4.30-5.90) m/uL Hgb 11.8 L (13.0-17.5) gm/dL Hct 36.7 L (39.0-53.0) % RDW (11.5-15.5) % Neutrophils # (1.3-7.7) k/uL Fibrinogen (200-500) mg/dL Sodium 135 L (137-145) mmol/L BUN 32 H (9-20) mg/dL Creatinine 1.40 H (0.66-1.25) mg/dL Glucose 117 H (74-99) mg/dL Iron (65-175) ug/dL Iron Saturation (15.00-50.00) C-Reactive Protein 89.3 H (<10.0) mg/L
[2018-06-14 09:47] LABS: Calcium 8.8 mg/dL (8.4-10.2); Potassium 4.4 mmol/L (3.5-5.1)
--- NOTE | 2018-06-14 10:20 | P.PN ---
Progress Note - Text Progress Note Date: 06/14/18 The patient is afebrile and normotensive. He is tolerating a diet but says he has not been very hungry for several months. He said he had a bowel movement earlier today. He denies any abdominal or flank pain. He denies any recent flank trauma. Hemoglobin is 11.8. Creatinine is 1.40. I personally reviewed the patient's computed tomography scan and renal ultrasound. There is a lobular mass arising from the anterior superior pole of the left kidney which could be a renal neoplasm. There is also a large splenic mass which could be a splenic cyst. Unfortunately the computed tomography scan was performed without IV contrast. The patient's baseline creatinine is in the 0.8-1.0 range. I would suggest the patient have a computed tomography scan of the chest and abdomen with IV contrast in approximately 2 weeks provided that his renal function has normalized. Further evaluation of the left renal mass can be performed as an outpatient. The patient says that his main concern is the blood flow into his left leg. He had previously undergone angioplasty on the right leg and believes that he may still have problems on the left side. He says that he has been trying to set up a follow-up appointment with Dr. Duke.
--- NOTE | 2018-06-14 14:16 | P.PN ---
Subjective Patient says that he's doing good. No nausea, no abdominal pain, no diarrhea constipation. Objective - Vital Signs Vital signs: Vital Signs Temp 98.7 F 06/14/18 07:45 Pulse 97 06/14/18 07:45 Resp 15 06/14/18 07:45 BP 116/64 06/14/18 11:18 Pulse Ox 90 L 06/14/18 07:45 Intake & Output 06/13/18 06/14/18 06/14/18 18:59 06:59 18:59 Intake Total 650 Output Total 126 400 Balance -126 250 Weight 109.951 kg Intake: Intake, IV Titration 350 Amount Sodium Chloride 0.9% 1, 350 000 ml @ 100 mls/hr IV . Q10H KARL Rx#:[id number] Oral 300 Output: Urine 100 400 Post Void Residual 26 Other: Voiding Method Urinal Urinal Urinal # Voids 3 3 2 - Exam On exam, alert and oriented x3. HEENT: Conjunctivae normal. eyes normal. NECK: No JVD. No thyroid enlargement. No LNs CARDIOVASCULAR: S1, S2 muffled. No murmur RESPIRATION: Breath sounds diminished in the bases. No rhonchi or crackles. No bronchial breathing. ABDOMEN: Soft, nontender . No guarding. no masses palpable. No ascites, No hepatosplenomegaly.Bowel sounds heard. LEGS: No edema. no swelling NERVOUS SYSTEM: Cranial N 2-12 grossly normal. Moves all 4 limbs. No focal deficits. No sensory deficit. No signs of cerebellar dysfucntion. Skin: no ulcer no rash - Labs CBC & Chem 7: 06/14/18 08:40 06/14/18 08:40 Labs: Abnormal Lab Results - Last 24 Hours (Table) 06/13/18 06/13/18 06/13/18 Range/Units 07:18 07:30 21:14 WBC 16.4 H (3.8-10.6) k/uL RBC 3.63 L (4.30-5.90) m/uL Hgb 10.6 L (13.0-17.5) gm/dL Hct 32.6 L (39.0-53.0) % RDW 15.6 H (11.5-15.5) % Neutrophils # 14.3 H (1.3-7.7) k/uL Fibrinogen 656 H (200-500) mg/dL Sodium (137-145) mmol/L BUN (9-20) mg/dL Creatinine (0.66-1.25) mg/dL Glucose (74-99) mg/dL Iron 5 L (65-175) ug/dL Iron Saturation 2.04 L (15.00-50.00) C-Reactive Protein (<10.0) mg/L 06/14/18 06/14/18 06/14/18 Range/Units 08:40 08:40 09:00 WBC 16.5 H (3.8-10.6) k/uL RBC 3.94 L (4.30-5.90) m/uL Hgb 11.8 L (13.0-17.5) gm/dL Hct 36.7 L (39.0-53.0) % RDW (11.5-15.5) % Neutrophils # (1.3-7.7) k/uL Fibrinogen (200-500) mg/dL Sodium 135 L (137-145) mmol/L BUN 32 H (9-20) mg/dL Creatinine 1.40 H (0.66-1.25) mg/dL Glucose 117 H (74-99) mg/dL Iron (65-175) ug/dL Iron Saturation (15.00-50.00) C-Reactive Protein 89.3 H (<10.0) mg/L Assessment and Plan Assessment: - Parasplenic hematoma - Possible renal hematoma versus neoplasm - Leukocytosis - Anemia - History of A. fib. Patient refused to be on anticoagulation - Hypertension - Hyperlipidemia - History of previous episodes of GI bleed Plan - Patient is evaluated by urology and general surgery team. Appreciated the recommendations. - General surgery thing is probably a splenic cyst. No surgical interventions as of now. The patient's inflammatory markers are high. His WBC is high as well. We just want to make sure that is not having any infectious etiology for the above labs. Consult infectious disease and discussed with Dr. Chicas. He is going to see the patient. - As per urology. Patient is probably having a renal neoplasm. Patient is to get a computed tomography scan with IV contrast and renal functions are better in the next 2 weeks. No emergent need. Discussed the above findings with the patient and discussed the concern of renal cancer. Patient says that he does not want to pursue any further care benefits of cancer he does not want to undergo surgery or chemotherapy. I suggested that he need to discuss this with his PCP before making any decisions with the patient agreed. - If the patient was cleared by infectious disease, the patient will probably be discharged and he will be asked to follow-up with his primary care doctor as an outpatient for a computed tomography scan. Time with Patient: Greater than 30
--- NOTE | 2018-06-14 17:20 | XR ---
EXAMINATION TYPE: XR foot complete LT DATE OF EXAM: 06/14/2018 COMPARISON: NONE HISTORY: Wound on the left foot. Nonhealing. TECHNIQUE: 3 views FINDINGS: There is extensive sclerosis and spur formation at the tarsometatarsal joints. There is pes planus. There is a plantar calcaneal spur. There is a forefoot valgus deformity. There is narrowing and spurring at the first MP joint. There is widening of the space between the first and second metat arsals. There is lateral subluxation deformity of the base of the second and third and fourth and fif th metatarsals. 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 Plantar calcaneal spur ring. No definite sign of osteomyelitis.
[2018-06-14] MEDS: ceFAZolin IN SWFI 2 GM/20 ML SYRINGE IVP SCH (17:28)
--- NOTE | 2018-06-14 22:37 | P.CONS ---
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, patient is presenting to [facility] ER which chief complaint of feeling nauseated and constipation, the patient having problem with a bowel movement for couple of days the patient also reported decreased urine output but no significant abdominal pain No fever no chills patient did have a CT of abdominal pelvis completed with possible mass to the right kidney and possible splenic hematoma for which the patient has been evaluated by general surgery, patient had denies any history of trauma and no significant pain to the left upper quadrant area, The patient has been afebrile throughout his hospital stay however the patient did have persistent elevated white count of 16.4 with a repeat of 16.5 that prompted this infection disease consultation in addition the patient also have elevated CRP of 89.3 at the time of evaluation patient was noticed to have a bandage on his left foot and on further questioning the patient did mention he did have a hard callus which apparently the patient tried to take himself off that has lead to this ulcer which has not been healing for couple of months patient did have mild drainage from it which is foul-smelling and did have associated swelling of his left foot but denies significant pain to the left foot area Review of Systems CONSTITUTIONAL: Positive for weakness. He denies high-grade Fever EYES: No complaint. ENT:No complaint. RESPIRATORY: No complaint. CARDIOVASCULAR: No complaint. GENITOURINARY: No complaint. GASTROINTESTINAL: As per history of present illness MUSCULOSKELETAL: As per history of present illness. INTEGUMENTARY: No complaint. PSYCHOLOGICAL: No complaint. ENDOCRINE: No complaint. NEUROLOGIC: No complaint. 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 bulge in arch), SOB, occ blood in stool, bleeds easily, cellulitis rt leg 11/2017. History of Any Multi-Drug Resistant Organisms: None Reported Past Surgical History: Appendectomy, Orthopedic Surgery Additional Past Surgical History / Comment(s): Right ankle fluid removal, left elbow nerve problem with surgery, [facility] 02/02/16. Surgery to amputate part second toes of jessica feet, balloon angioplasty for blockage rt leg, PICC line/later removed Past Anesthesia/Blood Transfusion Reactions: No Reported Reaction Additional Past Anesthesia/Blood Transfusion Reaction / Comm: no hx blood transfusion Past Psychological History: No Psychological Hx Reported Additional Psychological History / Comment(s): . Smoking Status: Never smoker Past Alcohol Use History: Occasional Additional Past Alcohol Use History / Comment(s): . Past Drug Use History: None Reported - Past Family History Father Family Medical History: Myocardial Infarction (OK) Additional Family Medical History / Comment(s): Father had a OK at the age of 63 and from it. Mother Family Medical History: No Reported History Additional Family Medical History / Comment(s): Mother lived to be 82 years old. Medications and Allergies Home Medications Medication Instructions Recorded Confirmed Type Metoprolol Tartrate [Lopressor] 25 mg PO BID #60 tab 12/24/17 06/12/18 Rx Losartan [Cozaar] 25 mg PO DAILY 01/16/18 06/12/18 History amLODIPine [Norvasc] 5 mg PO DAILY 05/30/18 06/12/18 History Atorvastatin [Lipitor] 20 mg PO DAILY 06/12/18 06/12/18 History Allergies Allergy/AdvReac Type Severity Reaction Status Date / Time steroid Allergy "muscle Uncoded 06/05/18 07:39 tightness" Physical Exam Vitals: Vital Signs Temp Pulse Resp BP Pulse Ox 06/14/18 14:54 98.9 F 84 15 120/63 95 06/14/18 11:18 116/64 06/14/18 07:45 98.7 F 97 15 180/66 90 L 06/14/18 01:36 98.4 F 90 20 116/56 92 L 06/13/18 19:00 98.4 F 80 18 138/56 95 Intake and Output 06/14/18 06/14/18 06/14/18 06:59 14:59 22:59 Intake Total 300 Output Total 400 Balance -100 Intake: Oral 300 Output: Urine 400 Other: Voiding Method Urinal # Voids 3 3 General: The patient is awake and alert, in no distress. Skin: no rashes and no masses palpable. Eye: Pupils are equal, round, there is normal conjunctiva bilaterally. Ears, nose, mouth and throat: There are moist mucous membranes and no oral lesions. Neck: The neck is supple, there is no thyromegaly. Cardiovascular: S1-S2 regular rate and rhythm. No murmur. Respiratory: Unlabored breathing clear to auscultation bilaterally Gastrointestinal: Soft, non-distended, non-tender abdomen without masses or organomegaly noted. Musculoskeletal: Wound on the plantar aspect of his left foot with callus around it minimal foul-smelling drainage with associated swelling of the left foot. Psychiatric: Patient is awake and alert and oriented 3, appropriate mood & affect, normal judgment. Results CBC & Chem 7: 06/14/18 08:40 06/14/18 08:40 Labs: Abnormal Lab Results - Last 24 Hours (Table) 06/13/18 06/13/18 06/13/18 Range/Units 07:18 07:30 21:14 WBC 16.4 H (3.8-10.6) k/uL RBC 3.63 L (4.30-5.90) m/uL Hgb 10.6 L (13.0-17.5) gm/dL Hct 32.6 L (39.0-53.0) % RDW 15.6 H (11.5-15.5) % Neutrophils # 14.3 H (1.3-7.7) k/uL Fibrinogen 656 H (200-500) mg/dL Sodium (137-145) mmol/L BUN (9-20) mg/dL Creatinine (0.66-1.25) mg/dL Glucose (74-99) mg/dL Iron 5 L (65-175) ug/dL Iron Saturation 2.04 L (15.00-50.00) C-Reactive Protein (<10.0) mg/L 06/14/18 06/14/18 06/14/18 Range/Units 08:40 08:40 09:00 WBC 16.5 H (3.8-10.6) k/uL RBC 3.94 L (4.30-5.90) m/uL Hgb 11.8 L (13.0-17.5) gm/dL Hct 36.7 L (39.0-53.0) % RDW (11.5-15.5) % Neutrophils # (1.3-7.7) k/uL Fibrinogen (200-500) mg/dL Sodium 135 L (137-145) mmol/L BUN 32 H (9-20) mg/dL Creatinine 1.40 H (0.66-1.25) mg/dL Glucose 117 H (74-99) mg/dL Iron (65-175) ug/dL Iron Saturation (15.00-50.00) C-Reactive Protein 89.3 H (<10.0) mg/L Assessment and Plan Assessment: 1-patient with leukocytosis which is likely multifactorial in this patient admitted to the Hospital with nausea and constipation noticed to have a possible splenic hematoma however no clear history of any trauma underlying possible malignancy needs to be ruled out as spleen is not a very common site of infection or abscess, the patient did have a ulcer on the plantar aspect of his left foot with some foul-smelling drainage and that could be the likely source of infection and responsible for elevation of this inflammatory markers Plan: 1-blood cultures will be obtained 2-local wound culture has been obtained 3-we'll check x-rays of the left foot 4-empirically add cefazolin 2 g every 8 hours the patient history of MSSA infection We will follow on his clinical condition and cultures to further adjust medication if needed Thank you for this consultation will follow this patient along with you Time with Patient: Greater than 30
[2018-06-15] MEDS: ceFAZolin IN SWFI 2 GM/20 ML SYRINGE IVP SCH ×2 (00:37→07:23)
[2018-06-15] MEDS: SODIUM CHLORIDE 0.9% 1,000 ML IV SCH (04:26)
[2018-06-15] MEDS: PANTOPRAZOLE 40 MG/10 ML VIAL IVP SCH ×2 (07:23→21:14)
[2018-06-15] MEDS: METOPROLOL TARTRATE 25 MG TAB PO SCH ×2 (07:24→21:14)
[2018-06-15] MEDS: amLODIPine 5 MG TAB PO SCH (07:24)
[2018-06-15] MEDS: ATORVASTATIN 20 MG TAB PO SCH (07:24)
[2018-06-15] MEDS: LOSARTAN 25 MG TAB PO SCH (07:24)
[2018-06-15] MEDS ORDERED: FUROSEMIDE 10 MG/ML 4 ML VIAL IV SCH (14:00)
--- NOTE | 2018-06-15 14:49 | P.PN ---
Subjective Patient was admitted for abdominal pain found to aspirate hematoma in the hematoma around the kidney both neurology and schedule surgery valid the patient does symptoms improved. Patient is also being treated for a right foot ulcer which appears to be infected and cultures are so for negative. Patient does have leukocytosis and there was concern about infection because of which infectious disease evaluate the patient and he is recommending ceftezole in for foot infection and wound cultures were obtained. Patient had a chest x-ray yesterday which did show some pulmonary edema and patient in 3 to solids and patient doesn't use any onset at home patient appears to have normal systolic function the past patient may have diastolic dysfunction with acute exacerbation patient was started on Lasix with repeat the chest x-ray tomorrow morning, IV fluids will be discontinued patient has renal dysfunction unsure whether this is acute or chronic. Patient apparently had scarring of the kidney and there was concern about renal cell carcinoma although patient declined to undergo any further workup for that but there is no proven cancer. CRP and pro calcitonin levels were elevated because of which there was concern about infection Constitutional: Denied any fatigue denied any fever. Cardio vascular: denied any chest pain, palpitations Gastrointestinal denied any nausea vomiting Pulmonary: Denied any shortness of breath cough Neurologic denied any new focal deficits All inpatient medications were reviewed and appropriate changes in these medications as dictated in the interval history and assessment and plan. Objective - Vital Signs Vital signs: Vital Signs Temp 97.4 F L 06/15/18 07:15 Pulse 89 06/15/18 07:15 Resp 20 06/15/18 07:15 BP 128/78 06/15/18 07:15 Pulse Ox 96 06/15/18 07:15 Intake & Output 06/14/18 06/15/18 06/15/18 18:59 06:59 18:59 Output Total 500 Balance -500 Output: Urine 500 Other: Voiding Method Urinal # Voids 3 1 2 # Bowel Movements 1 - Exam PHYSICAL EXAMINATION: GENERAL: The patient is alert and oriented x3, not in any acute distress. Well developed, well nourished. HEENT: Pupils are round and equally reacting to light. EOMI. No scleral icterus. No conjunctival pallor. Normocephalic, atraumatic. No pharyngeal erythema. No th yromegaly. CARDIOVASCULAR: S1 and S2 present. No murmurs, rubs, or gallops. PULMONARY: Chest is clear to auscultation, no wheezing or crackles. ABDOMEN: Soft, nontender, nondistended, normoactive bowel sounds. No palpable organomegaly. MUSCULOSKELETAL: No joint swelling or deformity. EXTREMITIES: No cyanosis, clubbing, or pedal edema. Foot ulceration as mentioned above NEUROLOGICAL: Gross neurological examination did not reveal any focal deficits. SKIN: No rashes. - Constitutional Constitutional Comment(s): PHYSICAL EXAMINATION: GENERAL: The patient is alert and oriented x3, not in any acute distress. Well developed, well nourished. HEENT: Pupils are round and equally reacting to light. EOMI. No scleral icterus. No conjunctival pallor. Normocephalic, atraumatic. No pharyngeal erythema. No thyromegaly. CARDIOVASCULAR: S1 and S2 present. No murmurs, rubs, or gallops. PULMONARY: Chest is clear to auscultation, no wheezing or crackles. ABDOMEN: Soft, nontender, nondistended, normoactive bowel sounds. No palpable organomegaly. MUSCULOSKELETAL: No joint swelling or deformity. EXTREMITIES: No cyanosis, clubbing, . Venous stasis ulcers along with the bilateral pitting pedal edema with some venous stasis dermatosis NEUROLOGICAL: Gross neurological examination did not reveal any focal deficits. SKIN: No rashes. - Labs CBC & Chem 7: 06/14/18 08:40 06/14/18 08:40 Labs: Abnormal Lab Results - Last 24 Hours (Table) 06/14/18 06/14/18 Range/Units 08:40 09:00 ESR 99 H (0-15) mm/hr Procalcitonin 0.54 H (0.02-0.09) ng/mL Microbiology - Last 24 Hours (Table) 06/14/18 17:16 Blood Culture - Final Blood 06/14/18 09:00 Blood Culture Gram Stain - Preliminary Blood 06/14/18 09:00 Blood Culture - Final Blood 06/14/18 15:15 Gram Stain - Preliminary Foot - Left Wound Culture - Preliminary 06/14/18 15:15 Anaerobic Culture - Preliminary Foot - Left Assessment and Plan Plan: Assessment and Plan Assessment: - Abdominal pain secondary to Parasplenic hematoma and renal hematoma -Scarring of one of the kidney possibility of renal cell carcinoma cannot be ruled out although patient declined to undergo further workup for that - Leukocytosis with some evidence of systemic inflammatory response which was believed to be secondary to foot wound infection and patient is on Keflex for that. -Congestive heart failure chronic diastolic dysfunction with acute exacerbation patient was started on Lasix will recheck creatinine tomorrow -Acute renal failure: Prerenal azotemia probably due to CHF exacerbation expected to improve with IV Lasix. Patient baseline creatinine is around 1. - History of A. fib. Patient refused to be on anticoagulation - Hypertension - Hyperlipidemia - History of previous episodes of GI bleed
--- NOTE | 2018-06-15 15:10 | PN ---
PROGRESS NOTE DATE OF SERVICE: 06/15/2018. REASON FOR FOLLOWUP: Left foot plantar wound with secondary cellulitis. INTERVAL HISTORY: The patient did have low grade fever last night of 99.7. The patient is afebrile since then. The patient overall is feeling better. Breathing comfortably. Denies any chest pain. Occasional cough. No abdominal pain. No diarrhea. No pain to the left foot plantar wound area. PHYSICAL EXAMINATION: Blood pressure 122/72, pulse 87, temp is 97.4. He is 93% on 3 L nasal cannula. General description is an elderly male lying in bed in no distress. Respiratory system: Unlabored breathing, clear to auscultation anteriorly. Heart S1, S2. Regular rate and rhythm. ABDOMEN: Soft. No tenderness. The left foot plantar wound exam shows no obvious drainage on the dressing. LAB: No new labs have been obtained today. The patient's blood culture with gram-positive bacilli. Wound culture showing gram-positive as well as gram-negative. DIAGNOSTIC IMPRESSION AND PLAN: 1. Patient with leukocytosis which is likely multifactorial. The patient did have a left foot plantar wound with concern for cellulitis. The patient is currently covered with Cefazolin. In view of the gram-negative seen on the gram stain, we will adjust her antibiotic to Unasyn. 2. Positive blood culture with gram-positive bacilli, more likely a contaminant. No need for any therapy for the same. Continue to monitor his clinical course closely. MMODL / IJN: [id number] /
[2018-06-15] MEDS: AMPICILLIN-SULBACTAM 3 GM in SODIUM CHLORIDE 0.9% 100 ML IVPB SCH (16:23)
[2018-06-16] MEDS: AMPICILLIN-SULBACTAM 3 GM in SODIUM CHLORIDE 0.9% 100 ML IVPB SCH ×4 (00:59→23:54)
[2018-06-16] MEDS ORDERED: FUROSEMIDE 10 MG/ML 4 ML VIAL IV SCH (06:00)
[2018-06-16] MEDS: PANTOPRAZOLE 40 MG/10 ML VIAL IVP SCH ×2 (07:33→19:45)
[2018-06-16] MEDS: ATORVASTATIN 20 MG TAB PO SCH (07:34)
[2018-06-16] MEDS: amLODIPine 5 MG TAB PO SCH (07:34)
[2018-06-16] MEDS: METOPROLOL TARTRATE 25 MG TAB PO SCH ×2 (07:34→19:45)
[2018-06-16 07:49] LABS: Calcium 8.9 mg/dL (8.4-10.2); Potassium 4.2 mmol/L (3.5-5.1)
--- NOTE | 2018-06-16 12:55 | P.PN ---
Subjective Patient was admitted for abdominal pain found to aspirate hematoma in the hematoma around the kidney both neurology and schedule surgery valid the patient does symptoms improved. Patient is also being treated for a right foot ulcer which appears to be infected and cultures are so for negative. Patient does have leukocytosis and there was concern about infection because of which infectious disease evaluate the patient and he is recommending ceftezole in for foot infection and wound cultures were obtained. Patient had a chest x-ray yesterday which did show some pulmonary edema and patient in 3 to solids and patient doesn't use any onset at home patient appears to have normal systolic function the past patient may have diastolic dysfunction with acute exacerbation patient was started on Lasix with repeat the chest x-ray tomorrow morning, IV fluids will be discontinued patient has renal dysfunction unsure whether this is acute or chronic. Patient apparently had scarring of the kidney and there was concern about renal cell carcinoma although patient declined to undergo any further workup for that but there is no proven cancer. CRP and pro calcitonin levels were elevated because of which there was concern about infection. 06/16/2018 Patient's is pretty status improved and patient is off oxygen at this time patient wanted to be discharged as he is feeling much better but the wound cultures are still pending because of which we will have to wait until tomorrow for the finalization of the cultures. Patient's IV Lasix will risk and urine patient was started on oral Lasix may not require any Lasix upon discharge Constitutional: Denied any fatigue denied any fever. Cardio vascular: denied any chest pain, palpitations Gastrointestinal denied any nausea vomiting Pulmonary: Denied any shortness of breath cough Neurologic denied any new focal deficits All inpatient medications were reviewed and appropriate changes in these medications as dictated in the interval history and assessment and plan. Objective - Vital Signs Vital signs: Vital Signs Temp 98.3 F 06/16/18 07:00 Pulse 71 06/16/18 07:00 Resp 16 06/16/18 07:00 BP 138/65 06/16/18 07:00 Pulse Ox 97 06/16/18 07:00 Intake & Output 06/15/18 06/16/18 06/16/18 18:59 06:59 18:59 Intake Total 850 Output Total 400 Balance 850 -400 Weight 111.4 kg Intake: Oral 850 Output: Urine 400 Other: Voiding Method Urinal Urinal # Voids 2 3 # Bowel Movements 1 - Exam PHYSICAL EXAMINATION: GENERAL: The patient is alert and oriented x3, not in any acute distress. Well developed, well nourished. HEENT: Pupils are round and equally reacting to light. EOMI. No scleral icterus. No conjunctival pallor. Normocephalic, atraumatic. No pharyngeal erythema. No thyromegaly. CARDIOVASCULAR: S1 and S2 present. No murmurs, rubs, or gallops. PULMONARY: Chest is clear to auscultation, no wheezing or crackles. ABDOMEN: Soft, nontender, nondistended, normoactive bowel sounds. No palpable organomegaly. MUSCULOSKELETAL: No joint swelling or deformity. EXTREMITIES: No cyanosis, clubbing, or pedal edema. Foot ulceration as mentioned above NEUROLOGICAL: Gross neurological examination did not reveal any focal deficits. SKIN: No rashes. - Labs CBC & Chem 7: 06/14/18 08:40 06/16/18 07:03 Labs: Abnormal Lab Results - Last 24 Hours (Table) 06/16/18 Range/Units 07:03 BUN 39 H (9-20) mg/dL Creatinine 1.44 H (0.66-1.25) mg/dL Glucose 105 H (74-99) mg/dL Microbiology - Last 24 Hours (Table) 06/14/18 09:00 Blood Culture Gram Stain - Final Blood Blood Culture - Final Corynebacterium striatum 06/14/18 17:16 Blood Culture Gram Stain - Final Blood Blood Culture - Final Corynebacterium striatum 06/14/18 17:16 Blood Culture - Final Blood Assessment and Plan Plan: Assessment and Plan Assessment: - Abdominal pain secondary to Parasplenic hematoma and renal hematoma -Scarring of one of the kidney possibility of renal cell carcinoma cannot be ruled out although patient declined to undergo further workup for that - Leukocytosis with some evidence of systemic inflammatory response which was believed to be secondary to foot wound infection and patient is on ceftezolin. -Congestive heart failure chronic diastolic dysfunction with acute exacerbation, improved respiratory status off oxygen patient is fairly euvolemic at this time -Acute renal failure: Prerenal azotemia probably due to CHF exacerbation improved with Lasix. Patient baseline creatinine is around 1. Patient's serum creatinine is 1.44 which is fairly stable at that level patient may have chronic kidney disease stage III from hypertensive nephrosclerosis - History of A. fib. Patient refused to be on anticoagulation - Hypertension - Hyperlipidemia - History of previous episodes of GI bleed
[2018-06-16] MEDS: FUROSEMIDE 40 MG TAB PO SCH (13:01)
--- NOTE | 2018-06-16 22:43 | PN ---
PROGRESS NOTE DATE OF SERVICE: 06/16/2018. REASON FOR FOLLOWUP: Left foot wound and secondary cellulitis. INTERVAL HISTORY: The patient is currently afebrile. The patient has been breathing comfortably. Denies having any chest pain or shortness of breath or cough. No abdominal pain. No diarrhea. PHYSICAL EXAMINATION: Blood pressure is 149/61 with a pulse of 84, temperature 98.1. He is 96% on room air. General description is an elderly male lying in bed in no distress. Respiratory system: Unlabored breathing. Clear to auscultation anteriorly. Heart S1, S2. Regular rate and rhythm. Abdomen soft, no tenderness. Left foot currently dressed up. No obvious drainage on the dressing. LABS: BUN of 39, creatinine 1.44. Blood culture has been growing the left foot cultures currently pending. DIAGNOSTIC IMPRESSION AND PLAN: 1. Patient with a positive blood culture with a gram-negative bacteria more likely pointing towards contamination rather than true pathogen. Patient did have a history of central line or immunosuppression and hence will be monitored closely with blood culture will be repeated to document clearance. 2. The patient who does have left foot plantar wound with secondary cellulitis. Waiting for the culture to finalize to determine his discharge antibiotic. We will repeat his CBC and BMP tomorrow to make sure it has normalized. Family present at the bedside. All questions were answered. with admitting physician. MARK / RASHELN: [id number] /
[2018-06-17] MEDS: AMPICILLIN-SULBACTAM 3 GM in SODIUM CHLORIDE 0.9% 100 ML IVPB SCH (07:43)
[2018-06-17] MEDS: PANTOPRAZOLE 40 MG/10 ML VIAL IVP SCH (07:43)
[2018-06-17] MEDS: METOPROLOL TARTRATE 25 MG TAB PO SCH (07:44)
[2018-06-17] MEDS: FUROSEMIDE 40 MG TAB PO SCH (07:44)
[2018-06-17] MEDS: amLODIPine 5 MG TAB PO SCH (07:44)
[2018-06-17] MEDS: ATORVASTATIN 20 MG TAB PO SCH (07:44)
[2018-06-17 07:53] LABS: Basophils # (A) 0.1 k/uL (0-0.2); Basophils % (A) 1 %; Eosinophils # (A) 0.3 k/uL (0-0.7); Eosinophils % (A) 2 %; HGB 10.8 gm/dL (13.0-17.5); Hypochromasia Slight; Lymphocytes # (A) 1.9 k/uL (1.0-4.8); Lymphocytes % (A) 14 %; MCH 29.2 pg (25.0-35.0); MCHC 31.9 g/dL (31.0-37.0); MCV 91.6 fL (80.0-100.0); Mean Platelet Volume 7.7; Monocytes # (A) 0.7 k/uL (0-1.0); Monocytes % (A) 5 %; Neutrophils # (A) 10.2 k/uL (1.3-7.7); Neutrophils % (A) 75 %; Platelet Count 295 k/uL (150-450); RBC 3.72 m/uL (4.30-5.90); RDW 15.3 % (11.5-15.5); WBC 13.6 k/uL (3.8-10.6)
[2018-06-17 08:16] LABS: Calcium 8.8 mg/dL (8.4-10.2); Potassium 3.9 mmol/L (3.5-5.1)
[2018-06-17 13:35] VITALS: BMI 32.5
--- NOTE | 2018-06-17 14:22 | P.DS ---
Providers Date of admission: 06/13/18 01:07 Attending physician: Esteban Pablo Consults: 06/13/18 11:10 Consult Physician Urgent Consulting Provider: Sixto Forbes Consult Reason/Comments: renal mass Do you want consulting provider notified?: Yes 06/13/18 14:09 Consult Physician Urgent Consulting Provider: Cachorro De Paz Consult Reason/Comments: splenic and renal hematoma, r/o any hemolytic process or vs any cancer ?? Do you want consulting provider notified?: Yes 06/14/18 12:29 Consult Physician Urgent Consulting Provider: Leslie Hanson Consult Reason/Comments: increased inflammatory markers, splenc cyst, r/o infection Do you want consulting provider notified?: Yes Primary care physician: [facility] Course: Patient was admitted for abdominal pain found to aspirate hematoma in the hematoma around the kidney both neurology and schedule surgery valid the patient does symptoms improved. Patient is also being treated for a right foot ulcer which appears to be infected and cultures are so for negative. Patient does have leukocytosis and there was concern about infection because of which infectious disease evaluate the patient and he is recommending ceftezole in for foot infection and wound cultures were obtained. Patient had a chest x-ray yesterday which did show some pulmonary edema and patient in 3 to solids and patient doesn't use any onset at home patient appears to have normal systolic function the past patient may have diastolic dysfunction with acute exacerbation patient was started on Lasix with repeat the chest x-ray tomorrow morning, IV fluids will be discontinued patient has renal dysfunction unsure whether this is acute or chronic. Patient apparently had scarring of the kidney and there was concern about renal cell carcinoma although patient declined to undergo any further workup for that but there is no proven cancer. CRP and pro calcitonin levels were elevated because of which there was concern about infection. 06/16/2018 Patient's is pretty status improved and patient is off oxygen at this time patient wanted to be discharged as he is feeling much better but the wound cultures are still pending because of which we will have to wait until tomorrow for the finalization of the cultures. Patient's IV Lasix will risk and urine patient was started on oral Lasix may not require any Lasix upon discharge. 06/17/2018 Patient has a wound on the plantar aspect of the right foot. Wound cultures are not finalized yet but patient has significant improvement in Unasyn because of which a infectious disease is recommending Augmentin for 2 weeks and follow up in wound care clinic.patient's kidney function improved and hyponatremia improved with Lasix because of which discharging 1 Lasix considering that he still has some pedal edema. BMP need to be closely monitored patient will be prescribed potassium as well. PHYSICAL EXAMINATION: GENERAL: The patient is alert and oriented x3, not in any acute distress. Well developed, well nourished. HEENT: Pupils are round and equally reacting to light. EOMI. No scleral icterus. No conjunctival pallor. Normocephalic, atraumatic. No pharyngeal erythema. No thyromegaly. CARDIOVASCULAR: S1 and S2 present. No murmurs, rubs, or gallops. PULMONARY: Chest is clear to auscultation, no wheezing or crackles. ABDOMEN: Soft, nontender, nondistended, normoactive bowel sounds. No palpable organomegaly. MUSCULOSKELETAL: No joint swelling or deformity. EXTREMITIES: No cyanosis, clubbing, or pedal edema. Foot ulceration as mentioned above NEUROLOGICAL: Gross neurological examination did not reveal any focal deficits. SKIN: No rashes. Assessment and Plan Assessment: - Abdominal pain secondary to Parasplenic hematoma and renal hematoma, improved now -Scarring of one of the kidney possibility of renal cell carcinoma cannot be ruled out although patient declined to undergo further workup for that - Leukocytosis with some evidence of systemic inflammatory response which was believed to be secondary to foot wound infection and patient was on Unasyn and patient is being switched to Augmentin -Congestive heart failure chronic diastolic dysfunction with acute exacerbation, improved respiratory status off oxygen patient is fairly euvolemic at this time -Acute renal failure: Prerenal azotemia probably due to CHF exacerbation improved with Lasix. Patient baseline creatinine is around 1. patient's creatinine did improve but not at his baseline yet. - History of A. fib. Patient refused to be on anticoagulation - Hypertension - Hyperlipidemia - History of previous episodes of GI bleed Patient Condition at Discharge: Stable Plan - Discharge Summary Discharge Rx Participant: Yes New Discharge Prescriptions: New Amoxic-Pot Clav 875-125Mg [Augmentin 875-125] 1 tab PO Q12HR #28 tablet Potassium Chloride ER [K-Dur 10] 10 meq PO DAILY #30 tab Furosemide [Lasix] 40 mg PO DAILY #30 tab Continue Metoprolol Tartrate [Lopressor] 25 mg PO BID #60 tab Losartan [Cozaar] 25 mg PO DAILY amLODIPine [Norvasc] 5 mg PO DAILY Atorvastatin [Lipitor] 20 mg PO DAILY Discharge Medication List Metoprolol Tartrate [Lopressor] 25 mg PO BID #60 tab 12/24/17 [Rx] Losartan [Cozaar] 25 mg PO DAILY 01/16/18 [History] amLODIPine [Norvasc] 5 mg PO DAILY 05/30/18 [History] Atorvastatin [Lipitor] 20 mg PO DAILY 06/12/18 [History] Amoxic-Pot Clav 875-125Mg [Augmentin 875-125] 1 tab PO Q12HR #28 tablet 06/17/18 [Rx] Furosemide [Lasix] 40 mg PO DAILY #30 tab 06/17/18 [Rx] Potassium Chloride ER [K-Dur 10] 10 meq PO DAILY #30 tab 06/17/18 [Rx] Follow up Appointment(s)/Referral(s): Matheus Madera MD [STAFF PHYSICIAN] - 06/25/18 9:40 am () Yo Mejía DO [Primary Care Provider] - 06/20/18 1:20 pm (At [place] [facility] With Camila) Ambulatory/Diagnostic Orders: Basic Metabolic Panel [LAB.AMB] Time Frame: 3 Days, Location: None Selected Patient Instructions/Handouts: Acute Abdominal Pain (DC), Hematoma (ED) Activity/Diet/Wound Care/Special Instructions: Aquacel silver packing of the left foot wound , expect a call from wound care about appointment with Dr hanson [phone] Discharge Disposition: HOME SELF-CARE
[2018-06-17 14:36] VITALS: BP 153/57; PULSE 94; RESP 20; TEMP 97.4
--- NOTE | 2018-06-17 15:53 | PN ---
PROGRESS NOTE DATE OF SERVICE: 06/17/2018. REASON FOR FOLLOWUP: Left foot infected wound cellulitis. INTERVAL HISTORY: The patient is currently afebrile. Patient has been breathing comfortably. Denies any chest pain or any cough. No abdominal pain or pain to the foot area. PHYSICAL EXAMINATION: Blood pressure 152/57 with pulse of 94, temperature 97.4. He is 99% on room air. General description is an elderly male lying in bed in no distress. Respiratory system: Unlabored breathing. Clear to auscultation anteriorly. Heart S1, S2. Regular rate and rhythm. Abdomen soft, no tenderness. Left foot plantar wound swelling and redness improved. No drainage. LABS: White count 13.6. Wound culture so far negative for resistant pathogen. DIAGNOSTIC IMPRESSION AND PLAN: 1. Patient with could have been a skin contaminant as the patient had no fever and overall improvement without treatment for the same. 2. Left foot plantar wound secondary to cellulitis. Culture negative for resistant pathogen. Antibiotic transition to oral Augmentin. Local wound care with Aquacel Silver. Follow up in the wound care center next week. MMODL / IJN: [id number] /
[2018-06-17] MEDS ORDERED: PANTOPRAZOLE 40 MG TABLET PO SCH (21:00)
== END 2018-06-17 14:40 | disposition home or self-care (01) | DRG 686 ==
LOC: EC 20:08 → 4SSUR 06-13 01:07 → OBSVTOIN 06-13 01:07
PROVIDERS: ADMIT Hospitalist; ATTEND Hospitalist
DX: C64.2 Malignant neoplasm of left kidney, except renal pelvis (principal); I50.33 Acute on chronic diastolic (congestive) heart failure; N17.9 Acute kidney failure, unspecified; K56.7 Ileus, unspecified; L03.116 Cellulitis of left lower limb; I13.0 Hypertensive heart and chronic kidney disease with heart failure and stage 1 through stage 4 chronic kidney disease, or unspecified chronic kidney disease; E87.1 Hypo-osmolality and hyponatremia; L97.529 Non-pressure chronic ulcer of other part of left foot with unspecified severity; E86.0 Dehydration; I48.91 Unspecified atrial fibrillation; D73.5 Infarction of spleen; D64.9 Anemia, unspecified; C61 Malignant neoplasm of prostate; N18.3 Chronic kidney disease, stage 3 (moderate); E78.5 Hyperlipidemia, unspecified; K59.00 Constipation, unspecified; E66.9 Obesity, unspecified; Z68.30 Body mass index [BMI] 30.0-30.9, adult; Z53.29 Procedure and treatment not carried out because of patient's decision for other reasons; Z79.899 Other long term (current) drug therapy; Z86.73 Personal history of transient ischemic attack (TIA), and cerebral infarction without residual deficits; Z90.49 Acquired absence of other specified parts of digestive tract; Z89.422 Acquired absence of other left toe(s); Z89.421 Acquired absence of other right toe(s); Z88.8 Allergy status to other drugs, medicaments and biological substances; Z82.49 Family history of ischemic heart disease and other diseases of the circulatory system
CPT/HCPCS: 36415; 70450; 71045; 74018; 74176; 76770; 80048; 80053; 81001; 82728; 83540; 83550; 83605; 83615; 83690; 84145; 85025; 85027; 85045; 85384; 85610; 85652; 85730; 86140; 87040; 87070; 87075; 87205; 93005; 96374; 99285

== ENCOUNTER 2018-06-18 18:13 | Emergency (ER) | payer MEDICARE ==
[~2018-06-18 18:13] MED LIST changes: -ALPRAZolam 0.25 MG TAB PO PRN; -ASPIRIN 325 MG TAB PO STA; +DEXTROSE 50% SYRINGE 50 ML IVP ONE; +EPINEPHrine 10 ML SYRINGE (0.1 MG/ML) ONE; +SODIUM BICARB 8.4% 50 ML SYR (1 MEQ/ML) ONE; -SODIUM CHLORIDE 0.9% 1,000 ML in EMPTY BAG 1 BAG IV ONE
[2018-06-18] MEDS ORDERED: EPINEPHrine 4 MG in DEXTROSE 5% IN WATER 250 ML IV ONE ×2 (18:45)
[2018-06-18 18:57] VITALS: BP 0/0; PULSE 0; RESP 16
[2018-06-18] MEDS ORDERED: DEXTROSE 5% IN WATER 1,000 ML with SODIUM BICARB (1 MEQ/ML) 100 ML IV SCH (19:00)
--- NOTE | 2018-06-18 19:14 | ED ---
General Adult HPI - General Chief complaint: Cardiac Arrest/CPR Stated complaint: cardiac arrest Time Seen by Provider: 06/18/18 19:03 Source: EMS Mode of arrival: EMS - History of Present Illness Initial comments: Dictation was produced using [employer] dictation software. please excuse any grammatical, word or spelling errors. Chief Complaint: 78-year-old male presents with cardiac arrest. History of Present Illness: Patient 78-year-old male who presents with cardiac arrest. According to EMS the call was made for unresponsiveness. EMS arrived on scene 5 minutes after the incident. CPR was started. EMS reports that they had performed CPR for approximately 25 minutes. They did report return of spontaneous circulation until pulling into our driveway. CPR then was resumed. According to EMS they report that patient was just discharged from our facility for chief complaint of dyspnea. Patient has extensive history of COPD. EMS reports that he was PA arrest. He is given 4 rounds of epinephrine. Unable to obtain ROS secondary to mental status. PHYSICAL EXAM: General Impression: Obtunded, lin HEENT: Normocephalic atraumatic Cardiovascular: Bradycardic Chest: Bilateral breath sounds Abdomen: Nondistended Musculoskeletal: no peripheral edema Neurological: Obtunded Skin: Cyanotic ED course: 78-year-old male presents with cardiac arrest. While receiving report from EMS patient went again into bradycardia and then asystole. CPR was resumed. Patient achieved Rosc after 3 or 4 cycles of CPR. Right femoral groin arterial line and triple lumen venous catheter was formal ultrasound guidance to the right groin. Patient then went on to go asystole on multiple occasions. EKG was performed showing inferior wall STEMI. Discussed patient case briefly with Dr. Mckenzie who recommended continuing resuscitation and plans for possible Intervention if patient was medically more stable. After 40-50 minutes of continued resuscitation patient continued to be asystole on multiple pulse checks. CPR was resuscitated and patient was pronounced . - Related Data Home Medications Medication Instructions Recorded Confirmed Losartan [Cozaar] 25 mg PO DAILY 01/16/18 06/18/18 amLODIPine [Norvasc] 5 mg PO DAILY 05/30/18 06/18/18 Atorvastatin [Lipitor] 20 mg PO DAILY 06/12/18 06/18/18 Previous Rx's Medication Instructions Recorded Metoprolol Tartrate [Lopressor] 25 mg PO BID #60 tab 12/24/17 Amoxic-Pot Clav 875-125Mg 1 tab PO Q12HR #28 tablet 06/17/18 [Augmentin 875-125] Furosemide [Lasix] 40 mg PO DAILY #30 tab 06/17/18 Potassium Chloride ER [K-Dur 10] 10 meq PO DAILY #30 tab 06/17/18 Allergies Allergy/AdvReac Type Severity Reaction Status Date / Time steroid Allergy "muscle Uncoded 06/05/18 07:39 tightness" Review of Systems ROS Statement: Those systems with pertinent positive or pertinent negative responses have been documented in the HPI. ROS Other: All systems not noted in ROS Statement are negative. 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 bulge in arch), SOB, occ blood in stool, bleeds easily, cellulitis rt leg 11/2017. History of Any Multi-Drug Resistant Organisms: None Reported Past Surgical History: Appendectomy, Orthopedic Surgery Additional Past Surgical History / Comment(s): Right ankle fluid removal, left elbow nerve problem with surgery, [facility] 02/02/16. Surgery to amputate part second toes of jessica feet, balloon angioplasty for blockage rt leg, PICC line/later removed Past Anesthesia/Blood Transfusion Reactions: No Reported Reaction Additional Past Anesthesia/Blood Transfusion Reaction / Comment(s): no hx blood transfusion Past Psychological History: No Psychological Hx Reported Smoking Status: Never smoker Past Alcohol Use History: Occasional Past Drug Use History: None Reported - Past Family History Father Family Medical History: Myocardial Infarction (IA) Additional Family Medical History / Comment(s): Father had a IA at the age of 63 and from it. Mother Family Medical History: No Reported History Additional Family Medical History / Comment(s): Mother lived to be 82 years old. Course Vital Signs 06/18/18 18:30 Pulse Rate 0 L Respiratory 16 Rate Blood Pressure 0/0 O2 Sat by Pulse 95 Oximetry Procedures - Central Line Placement Right Femoral Consent Obtained: emergent situation Patient Placed on Monitor/Pulse Ox: Yes MD Prep: mask, gown, gloves Central Line Prep: Povidone-Iodine 1% Ultrasound Used for Placement: Yes Central Line Lumen Inserted: triple Bloods Obtained for Lab: Yes Central Line Position: good blood return, sutured in place with 3-0 nylon Dressing Applied: Tegaderm Post Procedure X-Ray: tip of catheter in good position Patient Tolerated Procedure: well Complications: none Critical Care Time Critical Care Time: Yes Total Critical Care Time: 58 Critical Care Time: CPR was performed. At patient's bedside performing ACLS along with nursing staff. Ultrasound central venous catheter and ultrasound-guided arterial line was placed in the right groin area extensive discussion with cardiology, family and EMS staff. Disposition Clinical Impression: Cardiac arrest Disposition: Condition: Critical Is patient prescribed a controlled substance at d/c from ED?: No Referrals: Yo Mejía DO [Primary Care Provider] - 1-2 days Time of Disposition: 19:13 Preliminary Cause of : cardiac arrest
== END 2018-06-18 20:47 | disposition expired ==
LOC: EC 18:13
DX: I46.9 Cardiac arrest, cause unspecified (principal); E78.5 Hyperlipidemia, unspecified; I10 Essential (primary) hypertension; Z86.73 Personal history of transient ischemic attack (TIA), and cerebral infarction without residual deficits; Z79.899 Other long term (current) drug therapy; Z88.8 Allergy status to other drugs, medicaments and biological substances; Z82.49 Family history of ischemic heart disease and other diseases of the circulatory system
CPT/HCPCS: 94002; 99291; 36556; 92950; J0171